=== PATIENT | male | born 1960 | race Caucasian/White ===

== ENCOUNTER 2016-04-01 13:32 | Inpatient (IN) | payer MEDICAID, OTHER ==
[~2016-04-01] VITALS: Ht 185.4 cm; Wt 77.3 kg
[~2016-04-01 13:32] MED LIST: ALBU0.63 NEB; ALBU8I INH; DOXY100T PO; MEDR4PAK3 PO
[2016-04-01 13:36] VITALS: BP 158/83; PULSE 90; RESP 14; TEMP 99.1; O2SAT 96
[2016-04-01] MEDS ORDERED: SODIUM CHLOR 0.9% 1000 ML INJ 1,000 ML IV SCH (14:58)
[2016-04-01] MEDS ORDERED: VENTAER INH (14:58)
[2016-04-01] MEDS ORDERED: ALBU.5I NEB (14:58)
[2016-04-01] MEDS ORDERED: SODIUM CHLORIDE 0.9% FLUSH 5 ML FLUSH IVF PRN (15:00)
[2016-04-01] MEDS ORDERED: ONDANSETRON HCL 4 MG/2 ML VIAL IVP ONE (15:00)
--- NOTE | 2016-04-01 15:02 | PD ---
HPI Chief Complaint: Complaint Time Seen by Provider: 15:00 Travel History International Travel<30 days: No Contact w/Intl Traveler<30days: No Traveled to known affect area: No History of Present Illness HPI 56-year-old male presents to the emergency department for evaluation of abdominal pain and hematuria. Patient states he had flulike symptoms on Friday with diarrhea, chills, subjective fevers. He states that the symptoms resolved on . However, starting on he noticed some mild hematuria which worsened today. He reports worsening abdominal pain. He reports epigastric and left lower quadrant abdominal pain. He denies any history of abdominal surgeries or abdominal problems. He denies any history of nephrolithiasis. Patient states he drinks alcohol rarely. He has history of COPD and uses albuterol nebulizer/inhaler as needed. He denies any other prescribed medications. Patient denies any blood in his stool. He denies any dysuria. PFSH Past Medical History Arthritis: Yes Asthma: No Blood Disorders: No Anxiety: Yes Depression: No Cancer: Yes (basal and squamous cell skin) Cardiac Catheterization: Yes (X2) Cardiovascular Problems: Yes (HX CHEST PAIN DUE TO ANXIETY) High Cholesterol: No COPD: Yes Diminished Hearing: Yes (LEFT EAR [place]) Endocrine: No Gastrointestinal Disorders: Yes (GASTRIC REFLUX, esophageal spasms) GERD: Yes Genitourinary: No Immune Disorder: No Musculoskeletal: Yes Neurologic: No Psychiatric: Yes Reproductive: Yes Respiratory: Yes (COPD) Influenza Vaccination: No Past Surgical History Neurologic Surgery: No Other Surgery: Yes Social History Alcohol Use: Yes (OCCASIONAL) Tobacco Use: Yes (1 PPD x 45 YEARS) Substance Use: No Allergies-Medications (Allergen,Severity, Reaction): Coded Allergies: No Known Allergies (Verified , 04/01/16) Reported Meds & Prescriptions Reported Meds & Active Scripts Active Reported Albuterol Neb (Albuterol Sulfate) 2.5 Mg/0.5 Ml Neb 2.5 Mg NEB Q4HR NEB PRN Note: The Albuterol Sulfate Inhalation Solution is concentrated and must be diluted. Read complete instructions carefully before using. Ventolin Hfa 18 GM Inh (Albuterol Sulfate) 90 Mcg/Act Aer 1 Puff INH BID PRN Review of Systems Except as stated in HPI: all other systems reviewed are Neg Physical Exam Narrative GENERAL: Well-developed well-nourished male patient, afebrile. SKIN: Warm and dry. HEAD: Normocephalic. Atraumatic. EYES: No scleral icterus. No injection or drainage. NECK: Supple, trachea midline. No JVD or lymphadenopathy. CARDIOVASCULAR: Regular rate and rhythm without murmurs, gallops, or rubs. RESPIRATORY: Breath sounds equal bilaterally. No accessory muscle use. GASTROINTESTINAL: Abdomen soft and nondistended. Patient has tenderness over epigastric and left lower quadrants. MUSCULOSKELETAL: No cyanosis, or edema. BACK: Nontender without obvious deformity. No CVA tenderness. Data Data Last Documented VS Vital Signs Date Time Temp Pulse Resp B/P Pulse Ox O2 Delivery O2 Flow Rate FiO2 04/01/16 19:03 64 18 126/68 96 Room Air 04/01/16 13:36 99.1 Orders Urinalysis - C+S If Indicated (04/01/16 13:37) Complete Blood Count With Diff (04/01/16 14:58) Comprehensive Metabolic Panel (04/01/16 14:58) Lipase (04/01/16 14:58) Ct Abd/Pel W Iv Contrast(Rout) (04/01/16 14:58) Iv Access Insert/Monitor (04/01/16 14:58) Ecg Monitoring (04/01/16 14:58) Oximetry (04/01/16 14:58) Ondansetron Inj (Zofran Inj) (04/01/16 15:00) Sodium Chlor 0.9% 1000 Ml Inj (Ns 1000 M (04/01/16 14:58) Sodium Chloride 0.9% Flush (Ns Flush) (04/01/16 15:00) Electrocardiogram (04/01/16 ) Iohexol 350 Inj (Omnipaque 350 Inj) (04/01/16 15:28) Us Abdomen Gallbladder (04/01/16 ) Morphine Inj (Morphine Inj) (04/01/16 17:15) Ondansetron Inj (Zofran Inj) (04/01/16 17:15) Consult Gastroenterology (04/01/16 ) Consult General Surgery (04/01/16 ) (Hub Use Only)Inp Phy Cons/Ref (04/01/16 ) (Hub Use Only)Inp Phy Cons/Ref (04/01/16 ) Piperacil-Tazo 3.375 Gm Premix (Zosyn 3. (04/01/16 20:30) Drug Screen, Random Urine (04/01/16 20:23) Tylenol (Acetaminophen) (04/01/16 20:23) Place In Observation (04/01/16 ) Vital Signs (Adult) Q4H (04/01/16 20:23) Activity Oob With Assistance (04/01/16 20:23) ^ Heel Builder Machine / Telemetry .CONTINUOUS (04/01/16 20:23) Diet Npo (04/02/16 Breakfast) Sodium Chloride 0.9% Flush (Ns Flush) (04/01/16 20:30) Sodium Chloride 0.9% Flush (Ns Flush) (04/01/16 21:00) Comprehensive Metabolic Panel (04/02/16 06:00) Complete Blood Count With Diff (04/02/16 06:00) Case Management Consult (04/01/16 20:23) Naloxone Inj (Narcan Inj) (04/01/16 20:30) Creatine Kinase (Cpk) (04/01/16 20:23) Morphine Inj (Morphine Inj) (04/01/16 20:30) Drug Screen, Random Urine (04/01/16 20:25) Labs Laboratory Tests Test 04/01/16 04/01/16 15:10 15:15 Urine Color DARK-YELLOW Urine Turbidity CLEAR Urine pH 6.5 Urine Specific [place] 1.027 Urine Protein 30 mg/dL Urine Glucose (UA) NEG mg/dL Urine Ketones NEG mg/dL Urine Occult Blood NEG Urine Nitrite NEG Urine Bilirubin MOD Urine Urobilinogen GREATER THAN 12.0 MG/DL Urine Leukocyte Esterase NEG Urine RBC 1 /hpf Urine WBC LESS THAN 1 /hpf Urine Mucus MOD /lpf Microscopic Urinalysis Comment CULT NOT INDICATED White Blood Count 5.1 TH/MM3 Red Blood Count 5.17 MIL/MM3 Hemoglobin 15.2 GM/DL Hematocrit 45.5 % Mean Corpuscular Volume 87.9 FL Mean Corpuscular Hemoglobin 29.3 PG Mean Corpuscular Hemoglobin 33.4 % Concent Red Cell Distribution Width 13.9 % Platelet Count 161 TH/MM3 Mean Platelet Volume 8.6 FL Neutrophils (%) (Auto) 62.3 % Lymphocytes (%) (Auto) 23.3 % Monocytes (%) (Auto) 11.9 % Eosinophils (%) (Auto) 1.8 % Basophils (%) (Auto) 0.7 % Neutrophils # (Auto) 3.2 TH/MM3 Lymphocytes # (Auto) 1.2 TH/MM3 Monocytes # (Auto) 0.6 TH/MM3 Eosinophils # (Auto) 0.1 TH/MM3 Basophils # (Auto) 0.0 TH/MM3 CBC Comment DIFF FINAL Differential Comment Sodium Level 138 MEQ/L Potassium Level 4.3 MEQ/L Chloride Level 101 MEQ/L Carbon Dioxide Level 31.5 MEQ/L Anion Gap 6 MEQ/L Blood Urea Nitrogen 12 MG/DL Creatinine 1.09 MG/DL Estimat Glomerular Filtration 70 ML/MIN Rate Random Glucose 88 MG/DL Calcium Level 8.2 MG/DL Total Bilirubin 2.8 MG/DL Aspartate Amino Transf 703 U/L (AST/SGOT) Alanine Aminotransferase 1454 U/L (ALT/SGPT) Alkaline Phosphatase 161 U/L Total Protein 7.1 GM/DL Albumin 3.2 GM/DL Lipase 130 U/L MDM Medical Decision Making Medical Screen Exam Complete: Yes Emergency Medical Condition: Yes Medical Record Reviewed: Yes Interpretation(s) CT abdomen/pelvis - CONCLUSION: 1. CT appearance of the kidneys within normal limits. 2. Unusual rim enhancement within the lumen of the gallbladder. This may be mucosal enhancement and, if so, the gallbladder wall would be thickened. A pedunculated mass or polyp within the gallbladder would be conceivable. Gallbladder ultrasound with color-flow imaging recommended. 3. Left-sided colonic diverticulosis. No acute inflammatory changes. US - GALLBLADDER: Gallbladder is only slightly distended. Wall is thickened at about 8 mm in width trace pericholecystic fluid. No wall hyperemia seen. Sonographic Werner's sign negative. Differential Diagnosis Nephrolithiasis versus diverticulitis versus pancreatitis versus urinary tract infection Narrative Course 56-year-old male presents to the emergency department for evaluation of hematuria and epigastric as well as left lower quadrant abdominal pain. He denies any history of the same. EKG is ordered and pending. CBC, CMP, lipase, UA are ordered and pending. CT pelvis/pelvis with IV contrast is ordered and pending. EKG shows sinus rhythm, heart rate 61, no acute ST changes. CBC shows no acute abnormality. CMP shows elevated bilirubin at 2.8, AST 703, ALTs 1454, alkaline phosphatase 161. Elevated liver enzymes are new since previous labs on December 25, 2015. Lipase is 130. UA shows moderate bilirubin, greater than 12.0 urobilinogen, moderate mucous, culture not indicated. CT abdomen/pelvis shows 1. CT appearance of the kidneys within normal limits; 2. Unusual rim enhancement within the lumen of the gallbladder. This may be mucosal enhancement and, if so, the gallbladder wall would be thickened. A pedunculated mass or polyp within the gallbladder would be conceivable. Gallbladder ultrasound with color-flow imaging recommended; 3. Left-sided colonic diverticulosis. No acute inflammatory changes. US gallbladder is ordered and shows gallbladder is only slightly distended. Wall is thickened at about 8 mm in width trace pericholecystic fluid. No wall hyperemia seen. Sonographic Werner 's sign negative. Assessment to the general surgeon on-call, Dr. hilario liu, who recommended admit to medicine consult GI for ERCP [facility] is paged for admission. Dr. Toney accepted admission. Diagnosis Primary Impression: Cholecystitis Admitting Information Admitting Physician Requests: Observation Anabella Metcalf Apr 01, 2016 15:02
[2016-04-01] MEDS ORDERED: IOHEXOL 350 MG/ML 10 ML VIAL (for RAD DIAG) IV ONE (15:28)
[2016-04-01 15:47] LABS: AUTOMATED NEUTROPHIL # 3.2 TH/MM3 (1.8-7.7); BASOPHIL % 0.7 % (0.0-2.0); EOSINOPHIL # 0.1 TH/MM3 (0-0.4); EOSINOPHIL % 1.8 % (0.0-4.0); HEMATOCRIT 45.5 % (39.0-51.0); HEMO FLAGS DIFF FINAL; LYMPH % 23.3 % (9.0-44.0); LYMPHOCYTE # 1.2 TH/MM3 (1.0-4.8); MEAN CELL VOLUME 87.9 FL (80.0-100.0); MEAN CORPUSCULAR HEMOGLOBIN 29.3 PG (27.0-34.0); MEAN CORPUSCULAR HGB CONC 33.4 % (32.0-36.0); MONO % 11.9 % (0.0-8.0); NEUT % 62.3 % (16.0-70.0); PLATELET COUNT 161 TH/MM3 (150-450); RED BLOOD COUNT 5.17 MIL/MM3 (4.50-5.90); RED CELL DISTRIBUTION WIDTH 13.9 % (11.6-17.2); WHITE BLOOD COUNT 5.1 TH/MM3 (4.0-11.0)
[2016-04-01 15:48] VITALS: BP 122/56; PULSE 65; RESP 17; O2SAT 95
--- NOTE | 2016-04-01 15:55 | RADRPT ---
EXAM DATE/TIME: 04/01/2016 15:24 [facility] COMPARISON: CT ABDOMEN & PELVIS W/O CONTRAST, December 20, 2014, 21:30. INDICATIONS : Hematuria and left flank pain. IV CONTRAST: 91 cc IV ORAL CONTRAST: No oral contrast ingested. RADIATION DOSE: 11.91 CTDIvol (mGy) MEDICAL HISTORY : Gastroesophageal reflux disease. Cardiovascular disease Carcinoma, basal cell. SURGICAL HISTORY : None. ENCOUNTER: Initial ACUITY: 1 day PAIN SCALE: 7/10 LOCATION: Left flank TECHNIQUE: Volumetric scanning of the abdomen and pelvis was performed. Using automated exposure control and ad justment of the mA and/or kV according to patient size, radiation dose was kept as low as reasonably achievable to obtain optimal diagnostic quality images. FINDINGS: LOWER LUNGS: The visualized lower lungs are clear. LIVER: Homogeneous density without lesion. There is no dilation of the biliary tree. 9 mm diameter, elongat ed rim enhancing focus is seen within the gallbladder lumen extending from the neck to the fundus.. SPLEEN: Normal size without lesion. PANCREAS: Within normal limits. KIDNEYS: Normal in size and shape. There is no mass, stone or hydronephrosis. ADRENAL GLANDS: Within normal limits. VASCULAR: There is no aortic aneurysm. BOWEL/MESENTERY: There is moderate diverticulosis of the left side of the colon. No acute inflammatory changes are dem onstrated. ABDOMINAL WALL: Within normal limits. RETROPERITONEUM: There is no lymphadenopathy. BLADDER: No wall thickening or mass. REPRODUCTIVE: Within normal limits. INGUINAL: There is no lymphadenopathy or hernia. MUSCULOSKELETAL: No acute bony abnormality demonstrated. There are old, healed fractures of the right superior and inf erior pubic rami. CONCLUSION: 1. CT appearance of the kidneys within normal limits. 2. Unusual rim enhancement within the lumen of the gallbladder. This may be mucosal enhancement and, if so, the gallbladder wall would be thickened. A pedunculated mass or polyp within the gallbladder w ould be conceivable. Gallbladder ultrasound with color-flow imaging recommended. 3. Left-sided colonic diverticulosis. No acute inflammatory changes. Rangel De La Vega MD on April 01, 2016 at 15:48 Board Certified Radiologist. This report was verified electronically.
[2016-04-01 16:20] LABS: BLOOD, URINE NEG (NEG); GLUCOSE,URINE NEG (NEG); KETONE, URINE NEG (NEG); MUCUS URINE MOD /lpf (OCC); NITRITE,URINE NEG (NEG); PH, URINE 6.5 (5.0-8.5); URINE COLOR DARK-YELLOW (YELLW/STRAW)
[2016-04-01 16:22] LABS: ALKALINE PHOSPHATASE 161 U/L (45-117); ALT (GPT) 1454 U/L (12-78); ANION GAP 6 MEQ/L (5-15); AST (GOT) 703 U/L (15-37); BICARBONATE 31.5 MEQ/L (21.0-32.0); BLOOD UREA NITROGEN 12 MG/DL (7-18); CHLORIDE 101 MEQ/L (98-107); GLOMERULAR FILTRATION RATE 70 ML/MIN (>89); POTASSIUM 4.3 MEQ/L (3.5-5.1); SODIUM (NA) 138 MEQ/L (136-145); TOTAL BILIRUBIN ADULT 2.8 MG/DL (0.2-1.0)
[2016-04-01 16:23] LABS: COMMENT (UR) CULT NOT INDICATED; CULTURE IF INDICATED CULT NOT INDICATED
[2016-04-01] MEDS ORDERED: ONDANSETRON HCL 4 MG/2 ML VIAL IV PUSH ONE (17:15)
[2016-04-01] MEDS ORDERED: MORPHINE SULFATE 4 MG/ML INJ IV PUSH ONE (17:15)
--- NOTE | 2016-04-01 18:00 | RADRPT ---
EXAM DATE/TIME: 04/01/2016 17:02 [facility] COMPARISON: CT ABDOMEN & PELVIS W CONTRAST, April 01, 2016, 15:24. INDICATIONS : Abnormal gallbladder seen on CT. MEDICAL HISTORY : Gastroesophageal reflux disease. Chronic obstructive pulmonary disease. Left ear hearing loss. Esop hageal spasms. Arthritis. Anxiety. Skin cancer. SURGICAL HISTORY : Cardiac catheterization. Right knee surgery. Right wrist surgery. Right finger surgery. ENCOUNTER: Initial ACUITY: 1 day PAIN SCORE: 7/10 LOCATION: Right upper quadrant MEASUREMENTS: LIVER: 17.4 cm length COMMON DUCT: 4 mm RIGHT KIDNEY: 10.4 x 5.7 x 4.7 cm FINDINGS: LIVER: Normal echotexture without focal lesion or ductal dilatation. Normal flow velocity and direction in the main portal vein. COMMON DUCT: No intraluminal mass or stone visualized. GALLBLADDER: Gallbladder is only slightly distended. Wall is thickened at about 8 mm in width trace pericholecysti c fluid. No wall hyperemia seen. Sonographic Werner's sign negative. PANCREAS: The visualized portions are within normal limits. RIGHT KIDNEY: No evidence of hydronephrosis, stone, or mass. CONCLUSION: 1. Nonspecific gallbladder wall thickening with small pericholecystic fluid. No measurable mass. Nega tive sonographic Werner's sign. 2. Upper limits of normal size liver. Rangel De La Vega MD on April 01, 2016 at 17:55 Board Certified Radiologist. This report was verified electronically.
[2016-04-01 19:03] VITALS: BP 126/68; PULSE 64; RESP 18; O2SAT 96
--- NOTE | 2016-04-01 19:35 | PD ---
Data Data Last Documented VS Vital Signs Date Time Temp Pulse Resp B/P Pulse Ox O2 Delivery O2 Flow Rate FiO2 04/01/16 19:03 64 18 126/68 96 Room Air 04/01/16 13:36 99.1 Orders Urinalysis - C+S If Indicated (04/01/16 13:37) Complete Blood Count With Diff (04/01/16 14:58) Comprehensive Metabolic Panel (04/01/16 14:58) Lipase (04/01/16 14:58) Ct Abd/Pel W Iv Contrast(Rout) (04/01/16 14:58) Iv Access Insert/Monitor (04/01/16 14:58) Ecg Monitoring (04/01/16 14:58) Oximetry (04/01/16 14:58) Ondansetron Inj (Zofran Inj) (04/01/16 15:00) Sodium Chlor 0.9% 1000 Ml Inj (Ns 1000 M (04/01/16 14:58) Sodium Chloride 0.9% Flush (Ns Flush) (04/01/16 15:00) Electrocardiogram (04/01/16 ) Iohexol 350 Inj (Omnipaque 350 Inj) (04/01/16 15:28) Us Abdomen Gallbladder (04/01/16 ) Morphine Inj (Morphine Inj) (04/01/16 17:15) Ondansetron Inj (Zofran Inj) (04/01/16 17:15) Consult Gastroenterology (04/01/16 ) Consult General Surgery (04/01/16 ) Labs Laboratory Tests Test 04/01/16 04/01/16 15:10 15:15 Urine Color DARK-YELLOW Urine Turbidity CLEAR Urine pH 6.5 Urine Specific [place] 1.027 Urine Protein 30 mg/dL Urine Glucose (UA) NEG mg/dL Urine Ketones NEG mg/dL Urine Occult Blood NEG Urine Nitrite NEG Urine Bilirubin MOD Urine Urobilinogen GREATER THAN 12.0 MG/DL Urine Leukocyte Esterase NEG Urine RBC 1 /hpf Urine WBC LESS THAN 1 /hpf Urine Mucus MOD /lpf Microscopic Urinalysis Comment CULT NOT INDICATED White Blood Count 5.1 TH/MM3 Red Blood Count 5.17 MIL/MM3 Hemoglobin 15.2 GM/DL Hematocrit 45.5 % Mean Corpuscular Volume 87.9 FL Mean Corpuscular Hemoglobin 29.3 PG Mean Corpuscular Hemoglobin 33.4 % Concent Red Cell Distribution Width 13.9 % Platelet Count 161 TH/MM3 Mean Platelet Volume 8.6 FL Neutrophils (%) (Auto) 62.3 % Lymphocytes (%) (Auto) 23.3 % Monocytes (%) (Auto) 11.9 % Eosinophils (%) (Auto) 1.8 % Basophils (%) (Auto) 0.7 % Neutrophils # (Auto) 3.2 TH/MM3 Lymphocytes # (Auto) 1.2 TH/MM3 Monocytes # (Auto) 0.6 TH/MM3 Eosinophils # (Auto) 0.1 TH/MM3 Basophils # (Auto) 0.0 TH/MM3 CBC Comment DIFF FINAL Differential Comment Sodium Level 138 MEQ/L Potassium Level 4.3 MEQ/L Chloride Level 101 MEQ/L Carbon Dioxide Level 31.5 MEQ/L Anion Gap 6 MEQ/L Blood Urea Nitrogen 12 MG/DL Creatinine 1.09 MG/DL Estimat Glomerular Filtration 70 ML/MIN Rate Random Glucose 88 MG/DL Calcium Level 8.2 MG/DL Total Bilirubin 2.8 MG/DL Aspartate Amino Transf 703 U/L (AST/SGOT) Alanine Aminotransferase 1454 U/L (ALT/SGPT) Alkaline Phosphatase 161 U/L Total Protein 7.1 GM/DL Albumin 3.2 GM/DL Lipase 130 U/L MDM Supervised Visit with POLY: Yes Narrative Course The history, exam, and medical decision-making in the associated mid-level provider note were completed with my assistance. I reviewed and agree with the findings presented. I attest that I had a [id number] encounter with the patient on the same day, and personally performed and documented my assessment and findings in the medical record. *My assessment and Findings: 56-year-old man presents to the emergency department with epigastric pain, with fevers chills and myalgias for several days. Very tender in the epigastrium, not particular tender right upper quadrant. CT scan showed thickened gallbladder wall confirmed his gallbladder wall edema pericholecystic fluid on the ultrasound. Liver enzymes are also abnormal, but not in the pattern typically seen for acute cholecystitis. Given the diagnostic uncertainty, patient will be admitted to medicine, IV antibiotics, GI consult, surgery consult. Coverage for cholangitis. Diagnosis Primary Impression: Cholecystitis Jorge Alberto Etienne MD Apr 01, 2016 19:35
[2016-04-01] MEDS ORDERED: NALOXONE HCL 0.4 MG/ML AMP IV PRN (20:30)
[2016-04-01] MEDS ORDERED: SODIUM CHLORIDE 0.9% FLUSH 5 ML FLUSH FLUSH PRN (20:30)
[2016-04-01] MEDS ORDERED: PIPERACIL-TAZO 3.375 GM PREMIX 50 ML IV ONE (20:30)
[2016-04-01 20:45] LABS: AMPHETAMINE, URINE NEG (NEG); BARBITURATES, URINE NEG (NEG); COCAINE, URINE NEG (NEG)
[2016-04-01 20:54] LABS: ACETAMINOPHEN LESS THAN 2.0 MCG/ML (10.0-30.0); CREATINE KINASE 55 U/L (39-308)
[2016-04-01] MEDS: SODIUM CHLORIDE 0.9% FLUSH 5 ML FLUSH FLUSH SCH (22:05)
[2016-04-01 23:40] VITALS: BP 116/56; PULSE 84; RESP 20; TEMP 98.2; O2SAT 100
[2016-04-02] VITALS (10 sets, daily range): BP systolic 102–162; BP diastolic 52–91; PULSE 54–68; RESP 18–19; TEMP 98–98.9; O2SAT 94–98
--- NOTE | 2016-04-02 03:10 | HHI.HP ---
[facility] Service [facility] Primary Care Physician No Primary Care Physician Admission Diagnosis cholecystitis Diagnoses: Chief Complaint: Abdominal pain and hematuria Travel History International Travel<30 Days: No Contact w/Intl Traveler <30 Da: No Traveled to Known Affected Are: No History of Present Illness History taken from patient and ER physician. 56-year-old male with a history of COPD presented to the ED with increasing abdominal pain and hematuria. Patient states on Friday he felt like he had the flu with symptoms of nausea , vomiting, diarrhea, chills and fever. He states he vomited 4-5 times that day and multiple episodes of diarrhea. He is unsure how high his fever was but he states he just felt warm. He was also experiencing severe epigastric and left lower quadrant abdominal pain. On he developed hematuria, and the abdominal pain continued. The N/V/ D had subsided on . Friday he was able to go to work but did not feel good all day, and patient states over the weekend he spent all his time in bed. Today the abdominal pain continued to get worse so he presented to the ED. Patient states for the last 2 years he has had on and off right upper quadrant abdominal pain usually when he eats. He does admit to an unhealthy diet, as he lives alone and is always working. He denies any history of liver disease or hepatitis. He denies any chest pain or short of breath. Review of Systems Constitutional: COMPLAINS OF: Fever, Chills Respiratory: COMPLAINS OF: Cough, DENIES: Shortness of breath Cardiovascular: COMPLAINS OF: Chest pain, Lower Extremity Edema Gastrointestinal: COMPLAINS OF: Abdominal pain, Diarrhea, Nausea, Vomiting Genitourinary: COMPLAINS OF: Hematuria Musculoskeletal: DENIES: Back pain, Neck pain Integumentary: DENIES: Rash Hematologic/lymphatic: DENIES: Lymphadenopathy Immunologic/allergic: DENIES: Urticaria Past Family Social History Past Medical History COPD Past Surgical History Total knee replacement Right wrist surgery Skin cancer squamous removal Reported Medications Reported Meds & Active Scripts Active Reported Albuterol Neb (Albuterol Sulfate) 2.5 Mg/0.5 Ml Neb 2.5 Mg NEB Q4HR NEB PRN Note: The Albuterol Sulfate Inhalation Solution is concentrated and must be diluted. Read complete instructions carefully before using. Ventolin Hfa 18 GM Inh (Albuterol Sulfate) 90 Mcg/Act Aer 1 Puff INH BID PRN Allergies: Coded Allergies: No Known Allergies (Verified , 04/01/16) Active Ordered Medications Current Medications Medications (Trade) Dose Ordered Sig/Rosemarie Route Start Time Stop Time Status Last Admin (NS Flush) 2 ml UNSCH PRN FLUSH 04/01/16 20:30 (NS Flush) 2 ml BID FLUSH 04/01/16 21:00 04/01/16 22:05 (Narcan Inj) 0.4 mg UNSCH PRN IV 04/01/16 20:30 (Morphine Inj) 2 mg Q3H PRN IV PUSH 04/01/16 20:30 Family History Mom: ovarian cancer Dad: Parkinson's Social History Tobacco use: 1ppd Alcohol use: Denies Illicit drug use: Denies 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 SKIN: No rashes, ecchymoses or lesions. Cool and dry. HEAD: Atraumatic. Normocephalic. EYES: Pupils equal round and reactive. ENT: Nose without bleeding, purulent drainage or septal hematoma. Airway patent. NECK: Trachea midline. No JVD CARDIOVASCULAR: Regular rate and rhythm without murmurs, gallops, or rubs. RESPIRATORY: Clear to auscultation. Breath sounds equal bilaterally. No wheezes , rales, or rhonchi. GASTROINTESTINAL: Abdomen soft,tender, nondistended. No guarding. MUSCULOSKELETAL: Extremities without clubbing, cyanosis, or edema. No calf tenderness. NEUROLOGICAL: Awake and alert. Motor and sensory grossly within normal limits. Normal speech. Laboratory Laboratory Tests Test 04/01/16 04/01/16 15:10 15:15 Urine Color DARK-YELLOW Urine Turbidity CLEAR Urine pH 6.5 Urine Specific [place] 1.027 Urine Protein 30 Urine Glucose (UA) NEG Urine Ketones NEG Urine Occult Blood NEG Urine Nitrite NEG Urine Bilirubin MOD Urine Urobilinogen GREATER THAN 12.0 Urine Leukocyte Esterase NEG Urine RBC 1 Urine WBC LESS THAN 1 Urine Mucus MOD Microscopic Urinalysis Comment CULT NOT INDICATED Urine Opiates Screen NEG Urine Barbiturates Screen NEG Urine Amphetamines Screen NEG Urine Benzodiazepines Screen NEG Urine Cocaine Screen NEG Urine Cannabinoids Screen NEG White Blood Count 5.1 Red Blood Count 5.17 Hemoglobin 15.2 Hematocrit 45.5 Mean Corpuscular Volume 87.9 Mean Corpuscular Hemoglobin 29.3 Mean Corpuscular Hemoglobin 33.4 Concent Red Cell Distribution Width 13.9 Platelet Count 161 Mean Platelet Volume 8.6 Neutrophils (%) (Auto) 62.3 Lymphocytes (%) (Auto) 23.3 Monocytes (%) (Auto) 11.9 Eosinophils (%) (Auto) 1.8 Basophils (%) (Auto) 0.7 Neutrophils # (Auto) 3.2 Lymphocytes # (Auto) 1.2 Monocytes # (Auto) 0.6 Eosinophils # (Auto) 0.1 Basophils # (Auto) 0.0 CBC Comment DIFF FINAL Differential Comment Sodium Level 138 Potassium Level 4.3 Chloride Level 101 Carbon Dioxide Level 31.5 Anion Gap 6 Blood Urea Nitrogen 12 Creatinine 1.09 Estimat Glomerular Filtration 70 Rate Random Glucose 88 Calcium Level 8.2 Total Bilirubin 2.8 Aspartate Amino Transf 703 (AST/SGOT) Alanine Aminotransferase 1454 (ALT/SGPT) Alkaline Phosphatase 161 Total Creatine Kinase 55 Total Protein 7.1 Albumin 3.2 Lipase 130 Acetaminophen Level LESS THAN 2.0 Result Diagram: 04/01/16 1515 04/01/16 1515 Assessment and Plan Problem List: (1) Abdominal pain ICD Code: R10.9 Status: Acute (2) Acute hepatitis ICD Code: B17.9 Status: Acute (3) Elevated LFTs ICD Code: R94.5 Status: Acute Assessment and Plan 56-year-old male with a history of COPD presented with: Abdominal pain, rule out cholecystitis Images reviewed: Abdominal/pelvis CT shows unusual rim enhancement within the lumen of the gallbladder. Gallbladder ultrasound shows nonspecific gallbladder wall thickening with small pericholecystic fluid. -Consult GI and general surgery for recommendations -Pain management with IV morphine -MRI MRCP ordered Elevated LFTs, rule out acute hepatitis Labs reviewed: AST 703, [id number] -Hepatitis panel DVT prophylaxis: SCDs Written by Jennifer PETERSON, acting as scribe for Dr. Toney on 04/02/16 at 0250. The documentation accurately reflects the work performed [id number] and decisions made by me and the physician Dr Toney on 04/02/16. The documentation accurately reflects the work performed [id number] by me on at 0250 Discussed Condition With Patient and ED physician Problem Qualifiers (1) Abdominal pain: Qualified Code: R10.11 - Right upper quadrant abdominal pain Jennifer Shaw Apr 02, 2016 03:10 Jessica Toney MD Apr 11, 2016 07:58
[2016-04-02 07:26] LABS: AUTOMATED NEUTROPHIL # 3.4 TH/MM3 (1.8-7.7); BASOPHIL % 0.6 % (0.0-2.0); EOSINOPHIL # 0.1 TH/MM3 (0-0.4); EOSINOPHIL % 2.3 % (0.0-4.0); HEMATOCRIT 41.1 % (39.0-51.0); HEMO FLAGS DIFF FINAL; LYMPH % 21.6 % (9.0-44.0); LYMPHOCYTE # 1.2 TH/MM3 (1.0-4.8); MEAN CORPUSCULAR HEMOGLOBIN 29.3 PG (27.0-34.0); MEAN CORPUSCULAR HGB CONC 33.7 % (32.0-36.0); MONO % 12.5 % (0.0-8.0); PLATELET COUNT 128 TH/MM3 (150-450); RED BLOOD COUNT 4.72 MIL/MM3 (4.50-5.90); RED CELL DISTRIBUTION WIDTH 13.9 % (11.6-17.2); WHITE BLOOD COUNT 5.4 TH/MM3 (4.0-11.0)
[2016-04-02 07:47] LABS: ALKALINE PHOSPHATASE 137 U/L (45-117); ALT (GPT) 1360 U/L (12-78); ANION GAP 6 MEQ/L (5-15); AST (GOT) 774 U/L (15-37); BICARBONATE 26.9 MEQ/L (21.0-32.0); BLOOD UREA NITROGEN 11 MG/DL (7-18); CHLORIDE 105 MEQ/L (98-107); GLOMERULAR FILTRATION RATE 80 ML/MIN (>89); POTASSIUM 4.3 MEQ/L (3.5-5.1); SODIUM (NA) 138 MEQ/L (136-145); TOTAL BILIRUBIN ADULT 3.2 MG/DL (0.2-1.0)
[2016-04-02] MEDS ORDERED: ONDANSETRON HCL 4 MG/2 ML VIAL IV PUSH PRN (08:00)
--- NOTE | 2016-04-02 08:23 | HHI.PR ---
Subjective Remarks Follow-up for abdominal pain. The patient states he hasn't eaten in about a day now, reports his nausea and abdominal pain have improved, and would like to eat. He still complains of some upper abdomen pain. He continues to report dark urine. He reports he has had episodes of upper abdomen pain intermittently throughout the years. Does admit to having about diet consisting frequently of fast food. Objective Vitals Vital Signs Date Time Temp Pulse Resp B/P Pulse Ox O2 Delivery O2 Flow Rate FiO2 04/02/16 07:23 98.0 54 19 102/52 94 04/02/16 04:09 98.8 66 18 121/62 98 04/02/16 01:25 162/91 04/02/16 00:51 54 04/02/16 00:03 54 04/01/16 23:40 98.2 84 20 116/56 100 04/01/16 19:03 64 18 126/68 96 Room Air 04/01/16 15:48 65 17 122/56 95 Room Air 04/01/16 13:36 99.1 90 14 158/83 96 Room Air Result Diagram: 04/02/16 0616 04/02/16 0614 Imaging Last Impressions Abdomen/Pelvis CT 04/01/16 1458 Signed Impressions: Service Date/Time: Friday, April 01, 2016 15:24 - CONCLUSION: 1. CT appearance of the kidneys within normal limits. 2. Unusual rim enhancement within the lumen of the gallbladder. This may be mucosal enhancement and, if so , the gallbladder wall would be thickened. A pedunculated mass or polyp within the gallbladder would be conceivable. Gallbladder ultrasound with color-flow imaging recommended. 3. Left-sided colonic diverticulosis. No acute inflammatory changes. Rangel De La Vega MD Gall Bladder Ultrasound 04/01/16 0000 Signed Impressions: Service Date/Time: Friday, April 01, 2016 17:02 - CONCLUSION: 1. Nonspecific gallbladder wall thickening with small pericholecystic fluid. No measurable mass. Negative sonographic Werner's sign. 2. Upper limits of normal size liver. Rangel De La Vega MD Objective Remarks GENERAL: Well-developed well-nourished. In no acute distress. SKIN: Warm and dry. No lesions noted. HEENT: Normocephalic. Pupils equal and round. Mucous membranes pink and moist. CARDIOVASCULAR: Regular rate and rhythm. No murmur appreciated. RESPIRATORY: No accessory muscle use. Clear to auscultation. Breath sounds equal bilaterally. GASTROINTESTINAL: Abdomen soft, RUQ TTP, nondistended. Bowel sounds x4. MUSCULOSKELETAL: No obvious deformities. No clubbing or cyanosis. No edema. NEUROLOGICAL: Awake and alert. No focal neurological deficits. Moves upper and lower extremities spontaneously. Normal speech. PSYCHIATRIC: Appropriate mood and affect; insight and judgment normal. A/P Problem List: (1) Abdominal pain ICD Code: R10.9 Status: Acute (2) Elevated LFTs ICD Code: R94.5 Status: Acute Assessment and Plan 56-year-old male with a history of COPD presented with: Abdominal pain, RUQ/epigastric Images reviewed: Abdominal/pelvis CT shows unusual rim enhancement within the lumen of the gallbladder. Gallbladder ultrasound shows nonspecific gallbladder wall thickening with small pericholecystic fluid. Labs reviewed: Elevated bilirubin and transaminases. Lipase within normal limits. UA with moderate bilirubin and urobilinogen, no blood. Possible biliary obstruction vs cholecystitis vs acute hepatitis -Consulted GI and general surgery for recommendations -Pain management with IV morphine -MRI MRCP ordered -NPO for now, Add IVF with D5 -Antiemetics as needed -Hepatitis panel ordered, follow-up results DVT prophylaxis: SCDs Discharge Planning Disposition pending clinical course. Problem Qualifiers (1) Abdominal pain: Qualified Code: R10.11 - Right upper quadrant abdominal pain Fran Isabel Apr 02, 2016 08:23 Reese Hillman MD Apr 03, 2016 02:19
[2016-04-02] MEDS: D5-1/2 NS + KCL 20 MEQ INJ 1,000 ML IV SCH ×2 (08:35→22:20)
[2016-04-02] MEDS: SODIUM CHLORIDE 0.9% FLUSH 5 ML FLUSH FLUSH SCH ×2 (08:35→20:53)
--- NOTE | 2016-04-02 11:39 | RADRPT ---
EXAM DATE/TIME: 04/02/2016 09:50 [facility] COMPARISON: US ABDOMEN - GALLBLADDER, April 01, 2016, 17:02. CT ABDOMEN & PELVIS W CONTRAST, April 01, 2016, 15:24. INDICATIONS : Abdominal pain. MEDICAL HISTORY : Chronic obstructive pulmonary disease. Gastroesophageal reflux disease. SURGICAL HISTORY : rt knee, rt wrist, rt index finger ENCOUNTER: Subsequent ACUITY: 3 day PAIN SCORE: 6/10 LOCATION: upper quadrant abdomen TECHNIQUE: Multiplanar, multisequence magnetic resonance imaging of the abdomen was performed. High-resolution 3D dataset was utilized to reconstruct maximum-intensity projection (MIP) images. FINDINGS: INTRAHEPATIC BILE DUCTS: Within normal limits. No significant anatomical variant is present. EXTRAHEPATIC BILE DUCTS: The common bile duct measures 3 mm No stone or filling defect is identified. GALLBLADDER: No definite gallstones are demonstrated. There is some thickening of the gallbladder wall with some f luid around the gallbladder. LIVER: Normal size and signal intensity. No concerning liver lesion is identified on this non-contrast exam. There is a nonspecific periportal edema. PANCREAS: The main pancreatic duct is normal in size. There is no significant anatomical variant. Signal inte nsity is within normal limits. No mass is visualized on this non-contrast exam. OTHER: The remaining visualized structures demonstrate no acute abnormality on this non-contrast exam. CONCLUSION: 1. No evidence of gallstones in the gallbladder. However, there is some thickening of the gallbladder wall with some fluid around the gallbladder. This can be seen with either acute or chronic gallbladd er disease. This needs to be correlated with patient's physical, clinical exam and laboratory values. 2. No evidence of biliary tract obstruction. 3. Nonspecific periportal edema. Manuel Chowdhury MD on April 02, 2016 at 11:33 Board Certified Radiologist. This report was verified electronically.
--- NOTE | 2016-04-02 14:30 | PD.CONS ---
HPI History of Present Illness This is a 56 year old male patient who has been having generalized malaise with fevers, nausea, vomiting, diarrhea, and abdominal pain since last Friday. His urine became dark on . He reports that he continued to work, but states his symptoms were worsening and therefore he came to the ER for further evaluation. He complains of a constant dull ache ("6" on scale 0-10 with spikes up to "11") that radiates to his back. He states that he has been having a similar type pain off and on for about a year and half. It always seems to be related to food intake, although not a particular type of food. His vomiting consisted of undigested food initially and later progressed to bilious material, but no hematemesis. He reports intermittent fever and chills , but did not have a thermometer to actually take his temperature. The diarrhea lasted Friday and early , but has since subsided. He denies any weight loss. There is no blood in his stool. He has never been told that he had gallbladder issues, although he did suspect this because of his recurrent abdominal pain. 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 He denies any hx of liver disease and does not drink ETOH. 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 He also frequently eats shellfish. (Dottie Zhao) PFSH Past Medical History COPD Recurrent abdominal pain x 1.5 years. Past Surgical History Total knee replacement right Right wrist surgery Skin cancer squamous removal (Dottie Zhao) Coded Allergies: No Known Allergies (Verified , 04/01/16) Medications Allergies Coded Allergies Type Severity Reaction Last Updated Verified No Known Allergies 04/01/16 Yes Active Scripts Medications Dose Route/Sig Days Date Category Dose Instructions Albuterol Neb (Albuterol Sulfate) 2.5 Mg/0.5 Ml Neb 2.5 Mg NEB Q4HR NEB PRN 04/01/16 Reported Note: The Albuterol Sulfate Inhalation Solution is concentrated and must be diluted. Read complete instructions carefully before using. Ventolin Hfa 18 GM Inh (Albuterol Sulfate) 90 Mcg/Act Aer 1 Puff INH BID PRN 04/01/16 Reported Family History Mom from ovarian cancer Dad , had Parkinson's Social History Smokes 1 PPD No ETOH No illicit drug use. (Dottie Zhao KRISTEN) Review of Systems Constitutional: COMPLAINS OF: Fatigue, Fever, Chills, DENIES: Weight loss Respiratory: COMPLAINS OF: Cough, Shortness of breath Cardiovascular: DENIES: Chest pain Gastrointestinal: COMPLAINS OF: Abdominal pain, Diarrhea, Nausea, Vomiting, DENIES: Black stools, Bloody stools, Constipation, Swelling of Abdomen, Heartburn, Hematemesis Musculoskeletal: DENIES: Joint pain Integumentary: COMPLAINS OF: Jaundice, DENIES: Abnormal pigmentation Hematologic/lymphatic: DENIES: Bruising Psychiatric: DENIES: Confusion ROS dark urine (Dottie Zhao KRISTEN) GI Exam Vitals I&O Vital Signs Date Time Temp Pulse Resp B/P Pulse Ox O2 Delivery O2 Flow Rate FiO2 04/02/16 11:25 98.0 65 19 129/58 94 04/02/16 07:23 98.0 54 19 102/52 94 04/02/16 04:09 98.8 66 18 121/62 98 04/02/16 01:25 162/91 04/02/16 00:51 54 04/02/16 00:03 54 04/01/16 23:40 98.2 84 20 116/56 100 04/01/16 19:03 64 18 126/68 96 Room Air 04/01/16 15:48 65 17 122/56 95 Room Air Imaging Last Impressions Cholangiopancreatography MRI 04/02/16 0000 Signed Impressions: Service Date/Time: Saturday, April 02, 2016 09:50 - CONCLUSION: 1. No evidence of gallstones in the gallbladder. However, there is some thickening of the gallbladder wall with some fluid around the gallbladder. This can be seen with either acute or chronic gallbladder disease. This needs to be correlated with patient's physical, clinical exam and laboratory values. 2. No evidence of biliary tract obstruction. 3. Nonspecific periportal edema. Manuel Chowdhury MD Abdomen/Pelvis CT 04/01/16 1458 Signed Impressions: Service Date/Time: Friday, April 01, 2016 15:24 - CONCLUSION: 1. CT appearance of the kidneys within normal limits. 2. Unusual rim enhancement within the lumen of the gallbladder. This may be mucosal enhancement and, if so , the gallbladder wall would be thickened. A pedunculated mass or polyp within the gallbladder would be conceivable. Gallbladder ultrasound with color-flow imaging recommended. 3. Left-sided colonic diverticulosis. No acute inflammatory changes. Rangel De La Vega MD Gall Bladder Ultrasound 04/01/16 0000 Signed Impressions: Service Date/Time: Friday, April 01, 2016 17:02 - CONCLUSION: 1. Nonspecific gallbladder wall thickening with small pericholecystic fluid. No measurable mass. Negative sonographic Werner's sign. 2. Upper limits of normal size liver. Rangel De La Vega MD Laboratory Test 04/01/16 04/01/16 04/02/16 04/02/16 15:10 15:15 06:14 06:16 Urine Color DARK-YELLOW Urine Turbidity CLEAR Urine pH 6.5 Urine Specific [place] 1.027 Urine Protein 30 mg/dL Urine Glucose (UA) NEG mg/dL Urine Ketones NEG mg/dL Urine Occult Blood NEG Urine Nitrite NEG Urine Bilirubin MOD Urine Urobilinogen GREATER THAN 12.0 MG/DL Urine Leukocyte Esterase NEG Urine RBC 1 /hpf Urine WBC LESS THAN 1 /hpf Urine Mucus MOD /lpf Microscopic Urinalysis Comment CULT NOT INDICATED Urine Opiates Screen NEG Urine Barbiturates Screen NEG Urine Amphetamines Screen NEG Urine Benzodiazepines Screen NEG Urine Cocaine Screen NEG Urine Cannabinoids Screen NEG White Blood Count 5.1 TH/MM3 5.4 TH/MM3 Red Blood Count 5.17 MIL/MM3 4.72 MIL/MM3 Hemoglobin 15.2 GM/DL 13.9 GM/DL Hematocrit 45.5 % 41.1 % Mean Corpuscular Volume 87.9 FL 87.0 FL Mean Corpuscular Hemoglobin 29.3 PG 29.3 PG Mean Corpuscular Hemoglobin 33.4 % 33.7 % Concent Red Cell Distribution Width 13.9 % 13.9 % Platelet Count 161 TH/MM3 128 TH/MM3 Mean Platelet Volume 8.6 FL 8.8 FL Neutrophils (%) (Auto) 62.3 % 63.0 % Lymphocytes (%) (Auto) 23.3 % 21.6 % Monocytes (%) (Auto) 11.9 % 12.5 % Eosinophils (%) (Auto) 1.8 % 2.3 % Basophils (%) (Auto) 0.7 % 0.6 % Neutrophils # (Auto) 3.2 TH/MM3 3.4 TH/MM3 Lymphocytes # (Auto) 1.2 TH/MM3 1.2 TH/MM3 Monocytes # (Auto) 0.6 TH/MM3 0.7 TH/MM3 Eosinophils # (Auto) 0.1 TH/MM3 0.1 TH/MM3 Basophils # (Auto) 0.0 TH/MM3 0.0 TH/MM3 CBC Comment DIFF FINAL DIFF FINAL Differential Comment Sodium Level 138 MEQ/L 138 MEQ/L Potassium Level 4.3 MEQ/L 4.3 MEQ/L Chloride Level 101 MEQ/L 105 MEQ/L Carbon Dioxide Level 31.5 MEQ/L 26.9 MEQ/L Anion Gap 6 MEQ/L 6 MEQ/L Blood Urea Nitrogen 12 MG/DL 11 MG/DL Creatinine 1.09 MG/DL 0.97 MG/DL Estimat Glomerular Filtration 70 ML/MIN 80 ML/MIN Rate Random Glucose 88 MG/DL 76 MG/DL Calcium Level 8.2 MG/DL 7.7 MG/DL Total Bilirubin 2.8 MG/DL 3.2 MG/DL Aspartate Amino Transf 703 U/L 774 U/L (AST/SGOT) Alanine Aminotransferase 1454 U/L 1360 U/L (ALT/SGPT) Alkaline Phosphatase 161 U/L 137 U/L Total Creatine Kinase 55 U/L Total Protein 7.1 GM/DL 6.0 GM/DL Albumin 3.2 GM/DL 2.7 GM/DL Lipase 130 U/L Acetaminophen Level LESS THAN 2.0 MCG/ML Hepatitis A IgM Antibody NEGATIVE Hepatitis B Surface Antigen POSITIVE Hepatitis B Core IgM Antibody REACTIVE Physical Examination HEENT: Normocephalic; atraumatic; no jaundice. NECK: Neck is supple, no JVD, no lymphadenopathy. CHEST: CTA CARDIAC: RRR. ABDOMEN: Soft, nondistended, RUQ/Epigastric tenderness; no hepatosplenomegaly; bowel sounds are present in all four quadrants. EXTREMITIES: No clubbing, cyanosis, or edema. SKIN: Normal; no rash; no jaundice. CORNETIST: No focal deficits; alert and oriented times three. (Dottie Zhao) Assessment and Plan Plan ASSESSMENT: - Acute Hepatitis/Elevated LFTs, labs consistent with acute hepatitis b infection. Abdomen/Pelvis CT (04/01/16)----> 1. CT appearance of the kidneys within normal limits. 2. Unusual rim enhancement within the lumen of the gallbladder. This may be mucosal enhancement and, if so, the gallbladder wall would be thickened. A pedunculated mass or polyp within the gallbladder would be conceivable. Gallbladder ultrasound with color-flow imaging recommended. 3. Left-sided colonic diverticulosis. No acute inflammatory changes. GB Ultrasound (04/01/16)---> 1. Nonspecific gallbladder wall thickening with small pericholecystic fluid. No measurable mass. Negative sonographic Werner's sign. 2. Upper limits of normal size liver. MRCP (04/02/16)------> 1. No evidence of gallstones in the gallbladder. However, there is some thickening of the gallbladder wall with some fluid around the gallbladder. Acetaminophen level < 2.0. Hepatitis Bs Ag (+), Hepatitis B Core IgM Ab (+). T. Bili 3.2, AST 774, ALT 1360, ALk Phosph 137. This looks like an acute hepatitis b infection. - Abnormal imaging of GB with mild wall thickening and pericholecystic fluid. Unclear if he has some chronic GB disease, as he reports that he has had intermittent abdominal pain with food intake for 1.5 years, or if this is related to his acute hepatitis. GS consulted. His current symptoms seem more consistent with acute hepatitis- malaise, fevers, n/v/d, abdominal pain, dark urine. - COPD per primary PLAN: - NPO until seen by GS- if okay with them, okay to eat from GI standpoint - Hep B DNA Viral load - Hep Be Ag - Liver workup to exclude other underlying liver disease - CBC, CMP in am - Supportive care - Further recommendations to follow based on results of above - Pt seen and examined by Dr. Royal and myself and this note is written on his behalf (Dottie Zhao) Physician Comments Patient was seen and examined, agree with above note. we will check labs, continue supportive care. consider gall bladder removal. with liver Bx during surgery. (Zak Royal MD) Dottie Zhao Apr 02, 2016 14:30 Zak Royal MD Apr 02, 2016 22:17
[2016-04-02] MEDS ORDERED: DOCUSATE SODIUM 100 MG CAP PO PRN (21:00)
[2016-04-02] MEDS ORDERED: RESP: ALBUTEROL CONC 2.5 MG/0.5 ML NEB NEB PRN (21:00)
[2016-04-02] MEDS ORDERED: ALUMINUM/MAGNESIUM/SIMETH 30 ML CUP PO PRN (21:00)
[2016-04-02] MEDS ORDERED: MAGNESIUM HYDROXIDE SUSP 30 ML CUP PO PRN (21:00)
[2016-04-02] MEDS ORDERED: CALCIUM CARBONATE 500 MG CHEWABLE TAB CHEW PRN (21:00)
[2016-04-02] MEDS ORDERED: ALBUTEROL SULFATE 90 MCG/ACT HFA 8 GM INHALER INH PRN (21:00)
[2016-04-02] MEDS ORDERED: DOCUSATE SODIUM 50 MG/SENNA 8.6 MG TAB PO PRN (21:00)
--- NOTE | 2016-04-02 23:58 | EKG ---
Date Performed: 04/01/2016 Time Performed: 15:54:43 PTAGE: 56 years EKG: Sinus rhythm NORMAL ECG PREVIOUS TRACING : 12/25/2015 19.56 DOCTOR: Velia Abrams Interpretating Date/Time 04/02/2016 23:49:41
[2016-04-03] VITALS (8 sets, daily range): BP systolic 109–133; BP diastolic 55–78; PULSE 53–85; RESP 17–22; TEMP 97.6–98.7; O2SAT 93–99
[2016-04-03] MEDS: D5-1/2 NS + KCL 20 MEQ INJ 1,000 ML IV SCH (04:45)
[2016-04-03 06:15] LABS: AUTOMATED NEUTROPHIL # 2.4 TH/MM3 (1.8-7.7); BASOPHIL % 0.6 % (0.0-2.0); EOSINOPHIL # 0.1 TH/MM3 (0-0.4); EOSINOPHIL % 2.9 % (0.0-4.0); HEMATOCRIT 44.8 % (39.0-51.0); HEMO FLAGS DIFF FINAL; LYMPH % 24.4 % (9.0-44.0); MEAN CELL VOLUME 87.7 FL (80.0-100.0); MEAN CORPUSCULAR HEMOGLOBIN 28.4 PG (27.0-34.0); MEAN CORPUSCULAR HGB CONC 32.3 % (32.0-36.0); MONO % 13.1 % (0.0-8.0); PLATELET COUNT 143 TH/MM3 (150-450); RED BLOOD COUNT 5.11 MIL/MM3 (4.50-5.90); RED CELL DISTRIBUTION WIDTH 13.8 % (11.6-17.2); WHITE BLOOD COUNT 4.1 TH/MM3 (4.0-11.0)
[2016-04-03 06:51] LABS: ALKALINE PHOSPHATASE 143 U/L (45-117); ALT (GPT) 1530 U/L (12-78); ANION GAP 4 MEQ/L (5-15); AST (GOT) 871 U/L (15-37); BICARBONATE 29.7 MEQ/L (21.0-32.0); BLOOD UREA NITROGEN 12 MG/DL (7-18); CHLORIDE 104 MEQ/L (98-107); FERRITIN 2287 NG/ML (26-388); GLOMERULAR FILTRATION RATE 86 ML/MIN (>89); POTASSIUM 4.3 MEQ/L (3.5-5.1); SODIUM (NA) 138 MEQ/L (136-145); TOTAL BILIRUBIN ADULT 5.1 MG/DL (0.2-1.0); TRANSFERRIN IRON PROFILE 186 MG/DL (200-360)
--- NOTE | 2016-04-03 09:34 | HHI.GIFU ---
Subjective Remarks Resting in bed. Feeling better. Tolerating diet. No n/v. No abdominal pain at this time. No diarrhea. (Dottie Zhao) Objective Vitals I&O Vital Signs Date Time Temp Pulse Resp B/P Pulse Ox O2 Delivery O2 Flow Rate FiO2 04/03/16 07:20 97.6 53 18 109/55 94 04/03/16 04:42 98.7 85 22 133/78 99 04/03/16 01:25 98.2 73 17 126/74 99 04/02/16 20:10 98.9 68 18 121/67 98 04/02/16 20:00 66 04/02/16 15:42 98.0 61 19 122/62 95 04/02/16 11:25 98.0 65 19 129/58 94 I/O 04/02/16 04/02/16 04/02/16 04/03/16 04/03/16 04/03/16 07:00 15:00 23:00 07:00 15:00 23:00 Intake Total 625 ml Output Total 600 ml Balance 25 ml Intake IV Total 625 ml Output Urine Total 600 ml Laboratory Laboratory Tests Test 04/03/16 05:25 White Blood Count 4.1 Red Blood Count 5.11 Hemoglobin 14.5 Hematocrit 44.8 Mean Corpuscular Volume 87.7 Mean Corpuscular Hemoglobin 28.4 Mean Corpuscular Hemoglobin 32.3 Concent Red Cell Distribution Width 13.8 Platelet Count 143 Mean Platelet Volume 8.5 Neutrophils (%) (Auto) 59.0 Lymphocytes (%) (Auto) 24.4 Monocytes (%) (Auto) 13.1 Eosinophils (%) (Auto) 2.9 Basophils (%) (Auto) 0.6 Neutrophils # (Auto) 2.4 Lymphocytes # (Auto) 1.0 Monocytes # (Auto) 0.5 Eosinophils # (Auto) 0.1 Basophils # (Auto) 0.0 CBC Comment DIFF FINAL Differential Comment Sodium Level 138 Potassium Level 4.3 Chloride Level 104 Carbon Dioxide Level 29.7 Anion Gap 4 Blood Urea Nitrogen 12 Creatinine 0.91 Estimat Glomerular Filtration 86 Rate Random Glucose 95 Calcium Level 8.1 Iron Level 162 Total Iron Binding Capacity 260 Percent Iron Saturation 62.2 Ferritin 2287 Total Bilirubin 5.1 Aspartate Amino Transf 871 (AST/SGOT) Alanine Aminotransferase 1530 (ALT/SGPT) Alkaline Phosphatase 143 Total Protein 6.3 Albumin 2.8 Tumor Marker Alpha Fetoprotein 3.2 Imaging Last Impressions Cholangiopancreatography MRI 04/02/16 0000 Signed Impressions: Service Date/Time: Saturday, April 02, 2016 09:50 - CONCLUSION: 1. No evidence of gallstones in the gallbladder. However, there is some thickening of the gallbladder wall with some fluid around the gallbladder. This can be seen with either acute or chronic gallbladder disease. This needs to be correlated with patient's physical, clinical exam and laboratory values. 2. No evidence of biliary tract obstruction. 3. Nonspecific periportal edema. Manuel Chowdhury MD Abdomen/Pelvis CT 04/01/16 1458 Signed Impressions: Service Date/Time: Friday, April 01, 2016 15:24 - CONCLUSION: 1. CT appearance of the kidneys within normal limits. 2. Unusual rim enhancement within the lumen of the gallbladder. This may be mucosal enhancement and, if so , the gallbladder wall would be thickened. A pedunculated mass or polyp within the gallbladder would be conceivable. Gallbladder ultrasound with color-flow imaging recommended. 3. Left-sided colonic diverticulosis. No acute inflammatory changes. Rangel De La Vega MD Gall Bladder Ultrasound 04/01/16 0000 Signed Impressions: Service Date/Time: Friday, April 01, 2016 17:02 - CONCLUSION: 1. Nonspecific gallbladder wall thickening with small pericholecystic fluid. No measurable mass. Negative sonographic Werner's sign. 2. Upper limits of normal size liver. Rangel De La Vega MD Physical Exam HEENT: Normocephalic; atraumatic; no jaundice. NECK: Neck is supple, no JVD, no lymphadenopathy. CHEST: CTA CARDIAC: RRR. ABDOMEN: Soft, nondistended, RUQ/Epigastric tenderness; no hepatosplenomegaly; bowel sounds are present in all four quadrants. EXTREMITIES: No clubbing, cyanosis, or edema. SKIN: Normal; no rash; no jaundice. [employer]GER: No focal deficits; alert and oriented times three (Dottie Zhao) Assessment and Plan Plan ASSESSMENT: - Acute Hepatitis/Elevated LFTs, labs consistent with acute hepatitis b infection. Abdomen/Pelvis CT (04/01/16)----> 1. CT appearance of the kidneys within normal limits. 2. Unusual rim enhancement within the lumen of the gallbladder. This may be mucosal enhancement and, if so, the gallbladder wall would be thickened. A pedunculated mass or polyp within the gallbladder would be conceivable. Gallbladder ultrasound with color-flow imaging recommended. 3. Left-sided colonic diverticulosis. No acute inflammatory changes. GB Ultrasound (04/01/16)---> 1. Nonspecific gallbladder wall thickening with small pericholecystic fluid. No measurable mass. Negative sonographic Werner's sign. 2. Upper limits of normal size liver. MRCP (04/02/16)------> 1. No evidence of gallstones in the gallbladder. However, there is some thickening of the gallbladder wall with some fluid around the gallbladder. Acetaminophen level < 2.0. Hepatitis Bs Ag (+), Hepatitis B Core IgM Ab (+). Hep Be Ag pending, Hepatitis B DNA PCR pending. Iron saturation 62%, AFP 3.2, Ceruloplasmin pending, Alpha 1 Antitrypsin pending. LFTs slightly increased T. Bili 5.1, AST 871, ALT 1530, ALk Phosph 143. This looks like an acute hepatitis b infection. - Abnormal imaging of GB with mild wall thickening and pericholecystic fluid. Unclear if he has some chronic GB disease, as he reports that he has had intermittent abdominal pain with food intake for 1.5 years, or if this is related to his acute hepatitis. GS following. His current symptoms seem more consistent with acute hepatitis- malaise, fevers, n/v/d, abdominal pain, dark urine. - COPD per primary PLAN: - Heart healthy diet - PT/INR today and in am - LFT in am - Ammonia in am - Await Hep B DNA Viral load - Await Hep Be Ag - Await liver workup - Supportive care - Further recommendations to follow based on results of above - Pt seen and examined by Dr. Royal and myself and this note is written on his behalf (Dottie Zhao) Physician Comments Patient was seen and examined, agree with above note and plan, labs for AM. ( Zak Royal MD) Dottie Zhao Apr 03, 2016 09:34 Zak Royal MD Apr 03, 2016 20:18
[2016-04-03 11:42] LABS: INTERNATIONAL NORMALIZED RATIO 1.1 RATIO
[2016-04-03] MEDS: SODIUM CHLORIDE 0.9% FLUSH 5 ML FLUSH FLUSH SCH ×2 (13:09→21:00)
[2016-04-03] MEDS: MORPHINE SULFATE 4 MG/ML INJ IV PUSH PRN (13:10)
--- NOTE | 2016-04-03 14:17 | MB ---
cc: TAIWO ALBA M.D. DATE OF CONSULTATION: 04/03/2016 REASON FOR CONSULTATION Questionable cholecystitis. HISTORY OF PRESENT ILLNESS This is a 56-year-old gentleman who has been having about a one-week history of malaise, nausea, back pain and abdominal pain. He came into the emergency room originally and was found to have significantly elevated liver enzymes and was admitted to the hospital. He was found to have elevated liver enzymes. Surgery was consulted for evaluation. Subsequent to his admission it was found that he had continued elevation of his liver enzymes, had an ERCP with no stones. His hepatitis profile was positive for acute hepatitis B. He had a little bit of fluid around the gallbladder which was somewhat nonspecific. He complains of some fevers and chills on his review of systems he had no shortness of breath. He mainly complains of nausea and had vomited in the past. This has been going on for about a week with abdominal pain, back pain, thought he had problems with his kidneys because he had what he called hematuria and back pain in the kidney area. PAST MEDICAL HISTORY 1. COPD in the past. 2. Knee replacement. 3. Surgery on his wrist. 4. Skin cancer removed. MEDICATIONS He takes an albuterol inhaler. ALLERGIES He is not known to be allergic to anything. SOCIAL HISTORY He does smoke a little bit. PHYSICAL EXAMINATION GENERAL: On examination he is sitting up in bed. He appears fairly comfortable. NECK: Supple. CHEST: Clear. HEART: Regular rate. ABDOMEN: Thin, soft, without rebound or guarding. Mild tenderness in the midepigastric region. He does not really complain of pain at this point. NEUROLOGIC: He is alert and oriented without focal deficits. LABORATORY DATA White count 4, H&H 14 and 44, platelet counts 143. Chemistry shows markedly elevated liver enzymes across the board. Declining total bilirubin; when he first came in it was 2.8, now 5.1. ALT is 1500, AST 871. Albumin is 2.8. Calcium is 8.1. Toxicology was negative. Urinalysis showed bilirubin in the urine. He had a serology which showed positive for hepatitis B. IMAGING STUDIES He had an MRCP which does not show any stones. There is some thickening of the gallbladder wall. No biliary obstruction. Some mild edema. Abdominal CT scan: Thought there was an enhancing rim around the gallbladder which was not seen on the MRCP. Gallbladder ultrasound was nonspecific. Negative Werner's sign. ASSESSMENT A 56-year-old gentleman whose signs and symptomatology are consistent with acute hepatitis. When further questioning him he thinks he has had gallbladder problems over the last 10-15 years with occasional pain in his right upper quadrant with certain meals. He may have had chronic cholecystitis but at this point his acute hepatitis is the majority of his symptomatology. RECOMMENDATIONS I had a long discussion with the patient about not proceeding with a cholecystectomy during this acute phase of his hepatitis B. Await for the basketball commentator's final recommendations once this hepatitis B is resolved. We can reconsider and reevaluate for consideration of elective cholecystectomy if indicated. This was all discussed with the patient who appeared to understand. Will follow at a distance. I told the nurse he can go ahead and have a diet from my standpoint as there is no surgery planned at this time. MD SHEN Nur/RBOERT /1:30 PM /1:57 PM
--- NOTE | 2016-04-03 19:08 | HHI.PR ---
Subjective Remarks patient seen this morning around 10 AM. Says he is tolerating liquids. Denies any nausea or vomiting currently. Reports abdominal pain is improving. 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 Denies any history of IV drug use, and has not recently been sexually active. Objective Vital Signs Date Time Temp Pulse Resp B/P Pulse Ox O2 Delivery O2 Flow Rate FiO2 04/03/16 15:23 97.9 56 18 133/72 95 04/03/16 12:24 98.3 73 18 119/77 96 04/03/16 08:00 59 04/03/16 07:20 97.6 53 18 109/55 94 04/03/16 04:42 98.7 85 22 133/78 99 04/03/16 01:25 98.2 73 17 126/74 99 04/02/16 20:10 98.9 68 18 121/67 98 04/02/16 20:00 66 I/O 04/02/16 04/02/16 04/02/16 04/03/16 04/03/16 04/03/16 07:00 15:00 23:00 07:00 15:00 23:00 Intake Total 625 ml 240 ml Output Total 600 ml Balance 25 ml 240 ml Intake Oral 240 ml IV Total 625 ml Output Urine Total 600 ml Result Diagram: 04/03/16 0525 04/03/1625 Objective Remarks GENERAL: patient sitting up in bed. Appears comfortable. Alert and oriented x3. SKIN: Warm and dry. HEAD: Normocephalic. EYES: No scleral icterus. No injection or drainage. NECK: Supple, trachea midline. No JVD CARDIOVASCULAR: Regular rate and rhythm without murmurs, gallops, or rubs. RESPIRATORY: Breath sounds equal bilaterally. No accessory muscle use. GASTROINTESTINAL: Abdomen soft. mild right upper quadrant and epigastric tenderness. No rebound or guarding. Positive bowel sounds. MUSCULOSKELETAL: No cyanosis, or edema. BACK: Nontender without obvious deformity. No CVA tenderness. A/P Assessment and Plan //Acute hepatitis B infection. 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 Denies history of IV drug use. - Positive hepatitis B surface antigen - Gastroenterology following. Monitoring LFTs. Diet per GI. Further testing pending. Appreciate assistance. //Gallbladder wall thickening. - MRCP does show thickening of the gallbladder wall with pericholecystic fluid. - Uncertain if this is primary cholecystitis or edema secondary to hepatitis. - General surgery has been and patient not to be a surgical candidate for cholecystitis in the acute stage of hepatitis B. - Appreciate surgery and gastroenterology assistance. Prophylaxis. SCDs. Discharge Planning when tolerating diet and cleared for discharge by gastroenterology. Reese Hillman MD Apr 03, 2016 19:08
[2016-04-03] MEDS ORDERED: RESP: ALBUTEROL 2.5 MG/IPRATROPIUM 0.5 MG NEB (PRN) NEB (19:15)
[2016-04-04] VITALS (8 sets, daily range): BP systolic 98–134; BP diastolic 55–90; PULSE 51–74; RESP 18–20; TEMP 97–98.9; O2SAT 92–95
[2016-04-04] MEDS: D5-1/2 NS + KCL 20 MEQ INJ 1,000 ML IV SCH ×2 (01:00→13:24)
[2016-04-04] MEDS: MORPHINE SULFATE 4 MG/ML INJ IV PUSH PRN (07:47)
[2016-04-04] MEDS: SODIUM CHLORIDE 0.9% FLUSH 5 ML FLUSH FLUSH SCH ×2 (07:47→20:06)
--- NOTE | 2016-04-04 08:20 | HHI.PR ---
Subjective Remarks Follow up for acute hepatitis B. The patient reports the upper/epigastric abdominal pain returned this morning. He has been able to tolerate his food. Denies any nausea or vomiting. Denies any diarrhea. Denies fevers/chills. He continues to deny any drug use, prior transfusions, or sexual activity. Objective Vitals Vital Signs Date Time Temp Pulse Resp B/P Pulse Ox O2 Delivery O2 Flow Rate FiO2 04/04/16 04:12 97.7 58 20 98/59 95 04/04/16 00:13 97.7 55 20 106/55 93 04/03/16 21:13 97.7 69 20 110/58 93 04/03/16 20:00 58 04/03/16 15:23 97.9 56 18 133/72 95 04/03/16 12:24 98.3 73 18 119/77 96 I/O 04/03/16 04/03/16 04/03/16 04/04/16 04/04/16 04/04/16 06:59 14:59 22:59 06:59 14:59 22:59 Intake Total 240 ml Balance 240 ml Intake Oral 240 ml Result Diagram: 04/03/16 0525 04/03/16 0525 Imaging Last Impressions Cholangiopancreatography MRI 04/02/16 0000 Signed Impressions: Service Date/Time: Saturday, April 02, 2016 09:50 - CONCLUSION: 1. No evidence of gallstones in the gallbladder. However, there is some thickening of the gallbladder wall with some fluid around the gallbladder. This can be seen with either acute or chronic gallbladder disease. This needs to be correlated with patient's physical, clinical exam and laboratory values. 2. No evidence of biliary tract obstruction. 3. Nonspecific periportal edema. Manuel Chowdhury MD Abdomen/Pelvis CT 04/01/16 1458 Signed Impressions: Service Date/Time: Friday, April 01, 2016 15:24 - CONCLUSION: 1. CT appearance of the kidneys within normal limits. 2. Unusual rim enhancement within the lumen of the gallbladder. This may be mucosal enhancement and, if so , the gallbladder wall would be thickened. A pedunculated mass or polyp within the gallbladder would be conceivable. Gallbladder ultrasound with color-flow imaging recommended. 3. Left-sided colonic diverticulosis. No acute inflammatory changes. Rangel De La Vega MD Gall Bladder Ultrasound 04/01/16 0000 Signed Impressions: Service Date/Time: Friday, April 01, 2016 17:02 - CONCLUSION: 1. Nonspecific gallbladder wall thickening with small pericholecystic fluid. No measurable mass. Negative sonographic Werner's sign. 2. Upper limits of normal size liver. Rangel De La Vega MD Objective Remarks GENERAL: Well-nourished, well-developed middle aged male patient in [facility]. SKIN: Warm and dry. No rash. HEAD: Normocephalic. Atraumatic. EYES: Pupils equal and round. Mild scleral icterus. No injection or drainage. ENT: No nasal bleeding or discharge. Mucous membranes pink and moist. NECK: Supple. Trachea midline. CARDIOVASCULAR: Regular rate and rhythm. S1, S2 noted. No murmur appreciated. RESPIRATORY: No accessory muscle use. Faint expiratory wheezing, otherwise clear to auscultation. Breath sounds equal bilaterally. GASTROINTESTINAL: Abdomen soft, nondistended, mild diffuse epigastric TTP. Normoactive bowel sounds x4. MUSCULOSKELETAL: No obvious deformities. Extremities without clubbing, cyanosis , or edema. NEUROLOGICAL: Awake and alert. No obvious cranial nerve deficits. Motor grossly within normal limits. Normal speech. PSYCHIATRIC: Appropriate mood and affect; insight and judgment normal. Medications and IVs Current Medications Medications (Trade) Dose Ordered Sig/Rosemarie Route Start Time Stop Time Status Last Admin (NS Flush) 2 ml UNSCH PRN FLUSH 04/01/16 20:30 (NS Flush) 2 ml BID FLUSH 04/01/16 21:00 04/04/16 07:47 (Narcan Inj) 0.4 mg UNSCH PRN IV 04/01/16 20:30 (Morphine Inj) 2 mg Q3H PRN IV PUSH 04/01/16 20:30 04/04/16 07:47 Ondansetron HCl 4 mg 4 mg Q6HR PRN IV PUSH 04/02/16 08:00 (D5-04/01 NS + KCl 20 Meq Inj) 1,000 ml @ 75 mls/hr [id number] IV 04/02/16 09:00 04/03/16 04:45 (Colace) 100 mg BID PRN PO 04/02/16 21:00 (Ly-Colace) 1 tab BID PRN PO 04/02/16 21:00 (Milk Of Magnesia Liq) 30 ml DAILY PRN PO 04/02/16 21:00 (Mag-Al Plus Susp Liq) 30 ml Q6H PRN PO 04/02/16 21:00 (Tums Chew) 1,000 mg TID PRN CHEW 04/02/16 21:00 (Proair Hfa Inh) 1 puff BID PRN INH 04/02/16 21:00 Urinary Catheter: No Vascular Central Line Catheter: No A/P Problem List: (1) Abdominal pain ICD Code: R10.9 Status: Acute (2) Elevated LFTs ICD Code: R94.5 Status: Acute Assessment and Plan 56-year-old male with a history of COPD presented to the ED with increasing abdominal pain Acute hepatitis B infection with Transaminitis - 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 Denies history of IV drug use, risky sexual activity, or prior transfusion; however question truthfulness. - Positive hepatitis B surface antigen - Gastroenterology following. Diet per GI. Further testing pending. Appreciate assistance. - Monitoring LFTs, still trending up today. Gallbladder wall thickening, possible chronic cholecystitis. - MRCP does show thickening of the gallbladder wall with pericholecystic fluid. - Uncertain if this is primary cholecystitis or edema secondary to hepatitis. - General surgery consulted, patient not to be a surgical candidate for cholecystitis in the acute stage of hepatitis B. - Appreciate surgery and gastroenterology assistance. - Outpatient f/up with surgery COPD: Acute on Chronic. Wheezing on exam. - Will schedule duonebs q6h and continue albuterol inh/neb prn - Monitor for improvement DVT Prophylaxis. SCDs. Written by Cheryle Allen, acting as scribe for Dr. Camejo on 04/04/16 at 08:15. The documentation accurately reflects the work performed [id number] by me on at 0815 Discharge Planning Discharge when cleared by GI, however LFTs still trending up. Problem Qualifiers (1) Abdominal pain: Qualified Code: R10.11 - Right upper quadrant abdominal pain Cheryle Allen PA-C Apr 04, 2016 08:19 Dung Camejo MD Apr 04, 2016 16:27
[2016-04-04] MEDS: RESP: ALBUTEROL 2.5 MG/IPRATROPIUM 0.5 MG NEB (SCH) NEB ×3 (09:30→23:13)
[2016-04-04 09:35] LABS: AUTOMATED NEUTROPHIL # 2.8 TH/MM3 (1.8-7.7); BASOPHIL % 0.6 % (0.0-2.0); EOSINOPHIL # 0.1 TH/MM3 (0-0.4); EOSINOPHIL % 3.1 % (0.0-4.0); HEMATOCRIT 47.5 % (39.0-51.0); HEMO FLAGS DIFF FINAL; LYMPH % 25.9 % (9.0-44.0); LYMPHOCYTE # 1.2 TH/MM3 (1.0-4.8); MEAN CELL VOLUME 88.5 FL (80.0-100.0); MEAN CORPUSCULAR HEMOGLOBIN 29.3 PG (27.0-34.0); MEAN CORPUSCULAR HGB CONC 33.2 % (32.0-36.0); MONO % 10.9 % (0.0-8.0); NEUT % 59.5 % (16.0-70.0); PLATELET COUNT 157 TH/MM3 (150-450); RED BLOOD COUNT 5.37 MIL/MM3 (4.50-5.90); WHITE BLOOD COUNT 4.7 TH/MM3 (4.0-11.0)
[2016-04-04 09:40] LABS: INTERNATIONAL NORMALIZED RATIO 1.1 RATIO; PROTHROMBIN TIME - PATIENT 12.1 SEC (9.8-11.6)
[2016-04-04 10:04] LABS: BICARBONATE 30.9 MEQ/L (21.0-32.0); INDIRECT BILIRUBIN 1.2 MG/DL (0.0-0.8); POTASSIUM 4.4 MEQ/L (3.5-5.1); TOTAL BILIRUBIN ADULT 5.3 MG/DL (0.2-1.0)
--- NOTE | 2016-04-04 12:25 | HHI.GIFU ---
Subjective Remarks Resting in bed. States he had a rough night, more RUQ pain and nausea. No vomiting. (Dottie Zhao) Objective Vitals I&O Vital Signs Date Time Temp Pulse Resp B/P Pulse Ox O2 Delivery O2 Flow Rate FiO2 04/04/16 08:00 97.0 51 18 105/90 92 04/04/16 04:12 97.7 58 20 98/59 95 04/04/16 00:13 97.7 55 20 106/55 93 04/03/16 21:13 97.7 69 20 110/58 93 04/03/16 20:00 58 04/03/16 15:23 97.9 56 18 133/72 95 04/03/16 12:24 98.3 73 18 119/77 96 I/O 04/03/16 04/03/16 04/03/16 04/04/16 04/04/16 04/04/16 07:00 15:00 23:00 07:00 15:00 23:00 Intake Total 240 ml Balance 240 ml Intake Oral 240 ml Laboratory Laboratory Tests Test 04/04/16 04/04/16 09:10 09:15 Ammonia 17 White Blood Count 4.7 Red Blood Count 5.37 Hemoglobin 15.7 Hematocrit 47.5 Mean Corpuscular Volume 88.5 Mean Corpuscular Hemoglobin 29.3 Mean Corpuscular Hemoglobin 33.2 Concent Red Cell Distribution Width 14.0 Platelet Count 157 Mean Platelet Volume 8.1 Neutrophils (%) (Auto) 59.5 Lymphocytes (%) (Auto) 25.9 Monocytes (%) (Auto) 10.9 Eosinophils (%) (Auto) 3.1 Basophils (%) (Auto) 0.6 Neutrophils # (Auto) 2.8 Lymphocytes # (Auto) 1.2 Monocytes # (Auto) 0.5 Eosinophils # (Auto) 0.1 Basophils # (Auto) 0.0 CBC Comment DIFF FINAL Differential Comment Prothrombin Time 12.1 Prothromb Time International 1.1 Ratio Sodium Level 138 Potassium Level 4.4 Chloride Level 103 Carbon Dioxide Level 30.9 Anion Gap 4 Blood Urea Nitrogen 11 Creatinine 0.98 Estimat Glomerular Filtration 79 Rate Random Glucose 86 Calcium Level 8.3 Total Bilirubin 5.3 Direct Bilirubin 4.1 Indirect Bilirubin 1.2 Aspartate Amino Transf 1358 (AST/SGOT) Alanine Aminotransferase 2114 (ALT/SGPT) Alkaline Phosphatase 160 Total Protein 7.0 Albumin 3.2 Imaging Last Impressions Cholangiopancreatography MRI 04/02/16 0000 Signed Impressions: Service Date/Time: Saturday, April 02, 2016 09:50 - CONCLUSION: 1. No evidence of gallstones in the gallbladder. However, there is some thickening of the gallbladder wall with some fluid around the gallbladder. This can be seen with either acute or chronic gallbladder disease. This needs to be correlated with patient's physical, clinical exam and laboratory values. 2. No evidence of biliary tract obstruction. 3. Nonspecific periportal edema. Manuel Chowdhury MD Abdomen/Pelvis CT 04/01/16 1458 Signed Impressions: Service Date/Time: Friday, April 01, 2016 15:24 - CONCLUSION: 1. CT appearance of the kidneys within normal limits. 2. Unusual rim enhancement within the lumen of the gallbladder. This may be mucosal enhancement and, if so , the gallbladder wall would be thickened. A pedunculated mass or polyp within the gallbladder would be conceivable. Gallbladder ultrasound with color-flow imaging recommended. 3. Left-sided colonic diverticulosis. No acute inflammatory changes. Rangel De La Vega MD Gall Bladder Ultrasound 04/01/16 0000 Signed Impressions: Service Date/Time: Friday, April 01, 2016 17:02 - CONCLUSION: 1. Nonspecific gallbladder wall thickening with small pericholecystic fluid. No measurable mass. Negative sonographic Werner's sign. 2. Upper limits of normal size liver. Rangel De La Vega MD Physical Exam HEENT: Normocephalic; atraumatic; no jaundice. NECK: Neck is supple, no JVD, no lymphadenopathy. CHEST: CTA CARDIAC: RRR. ABDOMEN: Soft, nondistended, RUQ/Epigastric tenderness; no hepatosplenomegaly; bowel sounds are present in all four quadrants. EXTREMITIES: No clubbing, cyanosis, or edema. SKIN: Normal; no rash; no jaundice. TAVERN KEEPER: No focal deficits; alert and oriented times three (Dottie Zhao) Assessment and Plan Plan ASSESSMENT: - Acute Hepatitis/Elevated LFTs, labs consistent with acute hepatitis b infection. Abdomen/Pelvis CT (04/01/16)----> 1. CT appearance of the kidneys within normal limits. 2. Unusual rim enhancement within the lumen of the gallbladder. This may be mucosal enhancement and, if so, the gallbladder wall would be thickened. A pedunculated mass or polyp within the gallbladder would be conceivable. Gallbladder ultrasound with color-flow imaging recommended. 3. Left-sided colonic diverticulosis. No acute inflammatory changes. GB Ultrasound (04/01/16)---> 1. Nonspecific gallbladder wall thickening with small pericholecystic fluid. No measurable mass. Negative sonographic Werner's sign. 2. Upper limits of normal size liver. MRCP (04/02/16)------> 1. No evidence of gallstones in the gallbladder. However, there is some thickening of the gallbladder wall with some fluid around the gallbladder. Acetaminophen level < 2.0. Hepatitis Bs Ag (+), Hepatitis B Core IgM Ab (+). Hep Be Ag pending, Hepatitis B DNA PCR pending. Iron saturation 62%, AFP 3.2, Ceruloplasmin pending, Alpha 1 Antitrypsin pending. ROSEMARIE negative, AMA pending, ASMA pending. LFTs increased to T. Bili 5.3, AST 1358, ALT 2114, Alk Phosph 160 and clinically is more symptomatic today. PT/INR is stable. Will need to follow labs. Once these are trending down and he is doing well clinically, he can go home with outpatient follow up. D/W patient precautions for hepatitis B. - Abnormal imaging of GB with mild wall thickening and pericholecystic fluid. Unclear if he has some chronic GB disease, as he reports that he has had intermittent abdominal pain with food intake for 1.5 years, or if this is related to his acute hepatitis. GS following. His current symptoms seem more consistent with acute hepatitis- malaise, fevers, n/v/d, abdominal pain, dark urine. - COPD per primary PLAN: - Heart healthy diet - LFT, PT/INR, Ammonia am - Await Hep B DNA Viral load - Await Hep Be Ag - Await liver workup - Supportive care - Further recommendations to follow based on results of above - Pt seen and examined by Dr. Royal and myself and this note is written on his behalf (Dottie Zhao) Physician Comments Patient was seen and examined, agree with above note and plan,supportive care. ( Zak Royal MD) Dottie Zhao Apr 04, 2016 12:25 Zak Royal MD Apr 04, 2016 20:10
[2016-04-05] VITALS (7 sets, daily range): BP systolic 108–148; BP diastolic 55–72; PULSE 53–66; RESP 18–20; TEMP 98.2–98.7; O2SAT 94–96
[2016-04-05] MEDS: D5-1/2 NS + KCL 20 MEQ INJ 1,000 ML IV SCH ×2 (00:01→15:43)
[2016-04-05] MEDS: MORPHINE SULFATE 4 MG/ML INJ IV PUSH PRN ×2 (00:01→11:49)
[2016-04-05] MEDS: RESP: ALBUTEROL 2.5 MG/IPRATROPIUM 0.5 MG NEB (SCH) NEB ×3 (05:11→20:00)
--- NOTE | 2016-04-05 09:52 | HHI.PR ---
Subjective Remarks Follow-up for acute hepatitis B. The patient is complaining of upper abdomen pain today, unchanged. He has been tolerating diet. He does have some lower back discomfort from lying in bed. Objective Vitals Vital Signs Date Time Temp Pulse Resp B/P Pulse Ox O2 Delivery O2 Flow Rate FiO2 04/05/16 07:23 98.2 53 19 108/55 95 04/05/16 04:45 98.7 56 18 124/71 96 04/04/16 23:20 98.9 55 20 131/57 95 04/04/16 20:45 98.9 74 20 134/58 93 04/04/16 20:33 59 04/04/16 16:50 97.2 60 18 115/56 93 04/04/16 12:25 97.1 57 18 124/56 92 I/O 04/04/16 04/04/16 04/04/16 04/05/16 04/05/16 04/05/16 07:00 15:00 23:00 07:00 15:00 23:00 Intake Total 480 ml 1181 ml Balance 480 ml 1181 ml Intake Oral 480 ml 480 ml IV Total 701 ml # Voids 3 4 # Bowel Movements 2 Result Diagram: 04/04/16 0915 04/04/16 0915 Imaging Last Impressions Cholangiopancreatography MRI 04/02/16 0000 Signed Impressions: Service Date/Time: Saturday, April 02, 2016 09:50 - CONCLUSION: 1. No evidence of gallstones in the gallbladder. However, there is some thickening of the gallbladder wall with some fluid around the gallbladder. This can be seen with either acute or chronic gallbladder disease. This needs to be correlated with patient's physical, clinical exam and laboratory values. 2. No evidence of biliary tract obstruction. 3. Nonspecific periportal edema. Manuel Chowdhury MD Abdomen/Pelvis CT 04/01/16 1458 Signed Impressions: Service Date/Time: Friday, April 01, 2016 15:24 - CONCLUSION: 1. CT appearance of the kidneys within normal limits. 2. Unusual rim enhancement within the lumen of the gallbladder. This may be mucosal enhancement and, if so , the gallbladder wall would be thickened. A pedunculated mass or polyp within the gallbladder would be conceivable. Gallbladder ultrasound with color-flow imaging recommended. 3. Left-sided colonic diverticulosis. No acute inflammatory changes. Rangel De La Vega MD Gall Bladder Ultrasound 04/01/16 0000 Signed Impressions: Service Date/Time: Friday, April 01, 2016 17:02 - CONCLUSION: 1. Nonspecific gallbladder wall thickening with small pericholecystic fluid. No measurable mass. Negative sonographic Werner's sign. 2. Upper limits of normal size liver. Rangel De La Vega MD Objective Remarks GENERAL: Well-developed well-nourished. In no acute distress. SKIN: Warm and dry. No lesions noted. HEENT: Normocephalic. Pupils equal and round. Mucous membranes pink and moist. CARDIOVASCULAR: Regular rate and rhythm. No murmur appreciated. RESPIRATORY: No accessory muscle use. Clear to auscultation. Breath sounds equal bilaterally. GASTROINTESTINAL: Abdomen soft, RUQ TTP, nondistended. Bowel sounds x4. MUSCULOSKELETAL: No obvious deformities. No clubbing or cyanosis. No edema. NEUROLOGICAL: Awake and alert. No focal neurological deficits. Moves upper and lower extremities spontaneously. Normal speech. PSYCHIATRIC: Appropriate mood and affect; insight and judgment normal. 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 Denies history of IV drug use, risky sexual activity, or prior transfusion. Positive hepatitis B surface antigen - Gastroenterology following. Diet per GI. Further testing pending. Appreciate assistance. - Monitoring LFTs, repeat CMP pending Gallbladder wall thickening, possible chronic cholecystitis. MRCP does show thickening of the gallbladder wall with pericholecystic fluid. Uncertain if this is primary cholecystitis or edema secondary to hepatitis. - General surgery consulted, patient not to be a surgical candidate for cholecystitis in the acute stage of hepatitis B. - Appreciate surgery and gastroenterology assistance. - Outpatient f/up with surgery COPD: Acute on Chronic. Had wheezing on exam. - Scheduled duonebs q6h and continue albuterol inh/neb prn - Monitor for improvement DVT Prophylaxis. SCDs. Written by Fran Isabel, acting as scribe for Dr. Camejo on 1/6/17 at 09:51. The documentation accurately reflects the work performed [id number] by me on at [id number] Discharge Planning Follow up results of CMP today. If LFTs are trending down and okay with GI, possible discharge. Problem Qualifiers (1) Abdominal pain: Qualified Code: R10.11 - Right upper quadrant abdominal pain Fran Isabel Apr 05, 2016 09:52 Dung Camejo MD Apr 05, 2016 16:01
[2016-04-05] MEDS: SODIUM CHLORIDE 0.9% FLUSH 5 ML FLUSH FLUSH SCH ×2 (11:46→20:30)
[2016-04-05 12:51] LABS: ALKALINE PHOSPHATASE 133 U/L (45-117); ALT (GPT) 1901 U/L (12-78); ANION GAP 7 MEQ/L (5-15); AST (GOT) 1057 U/L (15-37); BICARBONATE 29.8 MEQ/L (21.0-32.0); BLOOD UREA NITROGEN 11 MG/DL (7-18); CHLORIDE 102 MEQ/L (98-107); GLOMERULAR FILTRATION RATE 90 ML/MIN (>89); MAGNESIUM 1.8 MG/DL (1.5-2.5); POTASSIUM 3.9 MEQ/L (3.5-5.1); SODIUM (NA) 139 MEQ/L (136-145); TOTAL BILIRUBIN ADULT 5.2 MG/DL (0.2-1.0)
--- NOTE | 2016-04-05 13:07 | HHI.GIFU ---
Subjective Remarks Resting in bed. C/O epigastric discomfort. No n/v. One loose stool. (Dottie Zhao KRISTEN) Objective Vitals I&O Vital Signs Date Time Temp Pulse Resp B/P Pulse Ox O2 Delivery O2 Flow Rate FiO2 04/05/16 11:16 98.2 62 19 115/59 95 04/05/16 07:23 98.2 53 19 108/55 95 04/05/16 04:45 98.7 56 18 124/71 96 04/04/16 23:20 98.9 55 20 131/57 95 04/04/16 20:45 98.9 74 20 134/58 93 04/04/16 20:33 59 04/04/16 16:50 97.2 60 18 115/56 93 I/O 04/04/16 04/04/16 04/04/16 04/05/16 04/05/16 04/05/16 07:00 15:00 23:00 07:00 15:00 23:00 Intake Total 480 ml 1181 ml Balance 480 ml 1181 ml Intake Oral 480 ml 480 ml IV Total 701 ml # Voids 3 4 # Bowel Movements 2 Laboratory Laboratory Tests Test 04/05/16 11:28 Sodium Level 139 Potassium Level 3.9 Chloride Level 102 Carbon Dioxide Level 29.8 Anion Gap 7 Blood Urea Nitrogen 11 Creatinine 0.87 Estimat Glomerular Filtration 90 Rate Random Glucose 127 Calcium Level 8.1 Magnesium Level 1.8 Total Bilirubin 5.2 Aspartate Amino Transf 1057 (AST/SGOT) Alanine Aminotransferase 1901 (ALT/SGPT) Alkaline Phosphatase 133 Total Protein 6.2 Albumin 2.7 Imaging Last Impressions Cholangiopancreatography MRI 04/02/16 0000 Signed Impressions: Service Date/Time: Saturday, April 02, 2016 09:50 - CONCLUSION: 1. No evidence of gallstones in the gallbladder. However, there is some thickening of the gallbladder wall with some fluid around the gallbladder. This can be seen with either acute or chronic gallbladder disease. This needs to be correlated with patient's physical, clinical exam and laboratory values. 2. No evidence of biliary tract obstruction. 3. Nonspecific periportal edema. Manuel Chowdhury MD Abdomen/Pelvis CT 04/01/16 1458 Signed Impressions: Service Date/Time: Friday, April 01, 2016 15:24 - CONCLUSION: 1. CT appearance of the kidneys within normal limits. 2. Unusual rim enhancement within the lumen of the gallbladder. This may be mucosal enhancement and, if so , the gallbladder wall would be thickened. A pedunculated mass or polyp within the gallbladder would be conceivable. Gallbladder ultrasound with color-flow imaging recommended. 3. Left-sided colonic diverticulosis. No acute inflammatory changes. Rangel De La Vega MD Gall Bladder Ultrasound 04/01/16 0000 Signed Impressions: Service Date/Time: Friday, April 01, 2016 17:02 - CONCLUSION: 1. Nonspecific gallbladder wall thickening with small pericholecystic fluid. No measurable mass. Negative sonographic Werner's sign. 2. Upper limits of normal size liver. Rangel De La Vega MD Physical Exam HEENT: Normocephalic; atraumatic; no jaundice. NECK: Neck is supple, no JVD, no lymphadenopathy. CHEST: CTA CARDIAC: RRR. ABDOMEN: Soft, nondistended, RUQ/Epigastric tenderness; no hepatosplenomegaly; bowel sounds are present in all four quadrants. EXTREMITIES: No clubbing, cyanosis, or edema. SKIN: Normal; no rash; no jaundice. RN PROGRESSIVE CARE UNIT: No focal deficits; alert and oriented times three (Dottie Zhao) Assessment and Plan Plan ASSESSMENT: - Acute Hepatitis/Elevated LFTs, labs consistent with acute hepatitis b infection. Abdomen/Pelvis CT (04/01/16)----> 1. CT appearance of the kidneys within normal limits. 2. Unusual rim enhancement within the lumen of the gallbladder. This may be mucosal enhancement and, if so, the gallbladder wall would be thickened. A pedunculated mass or polyp within the gallbladder would be conceivable. Gallbladder ultrasound with color-flow imaging recommended. 3. Left-sided colonic diverticulosis. No acute inflammatory changes. GB Ultrasound (04/01/16)---> 1. Nonspecific gallbladder wall thickening with small pericholecystic fluid. No measurable mass. Negative sonographic Werner's sign. 2. Upper limits of normal size liver. MRCP (04/02/16)------> 1. No evidence of gallstones in the gallbladder. However, there is some thickening of the gallbladder wall with some fluid around the gallbladder. Acetaminophen level < 2.0. Hepatitis Bs Ag (+), Hepatitis B Core IgM Ab (+). Hep Be Ag pending, Hepatitis B DNA PCR pending. Iron saturation 62%, AFP 3.2, Ceruloplasmin 31 , Alpha 1 Antitrypsin 218. ROSEMARIE negative, AMA pending, ASMA pending. LFTs seem to be plateauing/slight improvment, expect these to trend down more tomorrow. T. Bili 5.2, AST 1057, ALT 1901, Alk Phosph 133. Cont. Supportive care. Can be discontinued once labs are trending down more. However, will need repeat labs in 3 days and FU at [facility] in one week. No acetaminophen/etoh/OTC meds/herbal supplements- d/ w patient. D/W patient Hep. B precautions. - Abnormal imaging of GB with mild wall thickening and pericholecystic fluid. Unclear if he has some chronic GB disease, as he reports that he has had intermittent abdominal pain with food intake for 1.5 years, or if this is related to his acute hepatitis. GS following. His current symptoms seem more consistent with acute hepatitis- malaise, fevers, n/v/d, abdominal pain, dark urine. - COPD per primary PLAN: - Heart healthy diet - LFT in am - Await Hep B DNA Viral load - Await Hep Be Ag - Await AMA - If labs are trending down in am, okay to d/c home in am - Will need repeat LFT next week and [facility] FU in one week - No ETOH, Acetaminophen, OTC meds, Herbal supplements- D/W patient - D/W Hepatitis B precautions - Pt seen and examined by Dr. Royal and myself and this note is written on his behalf (Dottie Zhao) Physician Comments Patient was seen and examined, agree with above note and plan, home soon if LFTs improving. (Zak Royal MD) Dottie Zhao Apr 05, 2016 13:07 Zak Royal MD Apr 06, 2016 07:42
[2016-04-06 00:22] VITALS: BP 110/59; PULSE 64; RESP 20; TEMP 98.7; O2SAT 94
[2016-04-06] MEDS: D5-1/2 NS + KCL 20 MEQ INJ 1,000 ML IV SCH (01:25)
[2016-04-06 05:16] VITALS: BP 107/60; PULSE 61; RESP 20; TEMP 98.7; O2SAT 95
[2016-04-06 05:32] LABS: INDIRECT BILIRUBIN 1.1 MG/DL (0.0-0.8)
[2016-04-06 07:13] VITALS: BP 101/59; PULSE 65; RESP 18; TEMP 97.5; O2SAT 96
[2016-04-06] MEDS: RESP: ALBUTEROL 2.5 MG/IPRATROPIUM 0.5 MG NEB (SCH) NEB (07:20)
--- NOTE | 2016-04-06 07:56 | HHI.DS ---
Dr. Royal Discharge Summary Admission Date Apr 01, 2016 at 20:27 Discharge Date: Apr 06, 2016 Admitting Diagnosis cholecystitis (1) Abdominal pain ICD Code: R10.9 Diagnosis: Principal (2) Elevated LFTs ICD Code: R94.5 Diagnosis: Principal Procedures None Brief History - From Admission History taken from patient and ER physician. 56-year-old male with a history of COPD presented to the ED with increasing abdominal pain and hematuria. Patient states on Friday he felt like he had the flu with symptoms of nausea , vomiting, diarrhea, chills and fever. He states he vomited 4-5 times that day and multiple episodes of diarrhea. He is unsure how high his fever was but he states he just felt warm. He was also experiencing severe epigastric and left lower quadrant abdominal pain. On he developed hematuria, and the abdominal pain continued. The N/V/ D had subsided on . Friday he was able to go to work but did not feel good all day, and patient states over the weekend he spent all his time in bed. Today the abdominal pain continued to get worse so he presented to the ED. Patient states for the last 2 years he has had on and off right upper quadrant abdominal pain usually when he eats. He does admit to an unhealthy diet, as he lives alone and is always working. He denies any history of liver disease or hepatitis. He denies any chest pain or short of breath. CBC/BMP: 04/04/16 0915 04/05/16 1128 Significant Findings Laboratory Tests Test 04/03/16 04/04/16 04/05/16 04/06/16 11:02 09:15 11:28 04:42 Prothrombin Time 12.0 SEC 12.1 SEC (9.8-11.6) (9.8-11.6) Monocytes (%) (Auto) 10.9 % (0.0-8.0) Anion Gap 4 MEQ/L (5-15) Estimat Glomerular Filtration 79 ML/MIN (>89) Rate Calcium Level 8.3 MG/DL 8.1 MG/DL (8.5-10.1) (8.5-10.1) Total Bilirubin 5.3 MG/DL 5.2 MG/DL 5.0 MG/DL (0.2-1.0) (0.2-1.0) (0.2-1.0) Direct Bilirubin 4.1 MG/DL 3.9 MG/DL (0.0-0.2) (0.0-0.2) Indirect Bilirubin 1.2 MG/DL 1.1 MG/DL (0.0-0.8) (0.0-0.8) Aspartate Amino Transf 1358 U/L 1057 U/L 842 U/L (15-37) (AST/SGOT) (15-37) (15-37) Alanine Aminotransferase 2114 U/L 1901 U/L 1605 U/L (ALT/SGPT) (12-78) (12-78) (12-78) Alkaline Phosphatase 160 U/L 133 U/L 121 U/L (45-117) (45-117) (45-117) Albumin 3.2 GM/DL 2.7 GM/DL 2.4 GM/DL (3.4-5.0) (3.4-5.0) (3.4-5.0) Random Glucose 127 MG/DL (74-106) Total Protein 6.2 GM/DL 5.5 GM/DL (6.4-8.2) (6.4-8.2) Imaging Last Impressions Cholangiopancreatography MRI 04/02/16 0000 Signed Impressions: Service Date/Time: Saturday, April 02, 2016 09:50 - CONCLUSION: 1. No evidence of gallstones in the gallbladder. However, there is some thickening of the gallbladder wall with some fluid around the gallbladder. This can be seen with either acute or chronic gallbladder disease. This needs to be correlated with patient's physical, clinical exam and laboratory values. 2. No evidence of biliary tract obstruction. 3. Nonspecific periportal edema. Manuel Chowdhury MD Abdomen/Pelvis CT 04/01/16 1458 Signed Impressions: Service Date/Time: Friday, April 01, 2016 15:24 - CONCLUSION: 1. CT appearance of the kidneys within normal limits. 2. Unusual rim enhancement within the lumen of the gallbladder. This may be mucosal enhancement and, if so , the gallbladder wall would be thickened. A pedunculated mass or polyp within the gallbladder would be conceivable. Gallbladder ultrasound with color-flow imaging recommended. 3. Left-sided colonic diverticulosis. No acute inflammatory changes. Rangel De La Vega MD Gall Bladder Ultrasound 04/01/16 0000 Signed Impressions: Service Date/Time: Friday, April 01, 2016 17:02 - CONCLUSION: 1. Nonspecific gallbladder wall thickening with small pericholecystic fluid. No measurable mass. Negative sonographic Werner's sign. 2. Upper limits of normal size liver. Rangel De La Vega MD PE at Discharge GENERAL: Well-nourished, well-developed middle aged male patient in NAD. SKIN: Warm and dry. No rash. HEAD: Normocephalic. Atraumatic. EYES: Pupils equal and round. Mild scleral icterus. No injection or drainage. ENT: No nasal bleeding or discharge. Mucous membranes pink and moist. NECK: Supple. Trachea midline. CARDIOVASCULAR: Regular rate and rhythm. S1, S2 noted. No murmur appreciated. RESPIRATORY: No accessory muscle use. Faint expiratory wheezing, otherwise clear to auscultation. Breath sounds equal bilaterally. GASTROINTESTINAL: Abdomen soft, nondistended, mild diffuse epigastric TTP. Normoactive bowel sounds x4. MUSCULOSKELETAL: No obvious deformities. Extremities without clubbing, cyanosis , or edema. NEUROLOGICAL: Awake and alert. No obvious cranial nerve deficits. Motor grossly within normal limits. Normal speech. PSYCHIATRIC: Appropriate mood and affect; insight and judgment normal. Pt update on day of discharge Denies any abdominal pain. Tolerating diet. Educated patient on barrier protection use with sexual contact. 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 Denies history of IV drug use, risky sexual activity, or prior transfusion. Positive hepatitis B surface antigen Gastroenterology following. Discussed with GI, cleared for outpatient follow up if LFTs continue to trend down. LFTs trending down. Tolerating diet. - Monitoring LFTs - Outpatient GI follow-up Gallbladder wall thickening, possible chronic cholecystitis. MRCP does show thickening of the gallbladder wall with pericholecystic fluid. Uncertain if this is primary cholecystitis or edema secondary to hepatitis. - General surgery consulted, patient not to be a surgical candidate for cholecystectomy currently in the acute stage of hepatitis B. - Appreciate surgery and gastroenterology assistance. - Outpatient f/up with surgery COPD: Acute on Chronic. Had wheezing on exam, resolved - Nebs prn Pt Condition on Discharge: Stable Discharge Disposition: Discharge Home Discharge Time: > 30 minutes Discharge Instructions DIET: Follow Instructions for: Heart Healthy Diet Activities you can perform: Regular-No Restrictions Follow up Referrals: Gastroenterology - 1 Week @ [facility] New Orders: HEPATIC FUNCTION [facility] - 2-3 Days Continued Medications: Albuterol 18 GM Inh (Ventolin Hfa 18 GM Inh) 90 Mcg/Act Aer 1 PUFF INH BID PRN SHORTNESS OF BREATH #0 Ref 0 INHALER Albuterol Neb (Albuterol Neb) 2.5 Mg/0.5 Ml Neb 2.5 MG NEB Q4HR NEB Note: The Albuterol Sulfate Inhalation Solution is concentrated and must be diluted. Read complete instructions carefully before using. PRN SOB/WHEEZING EA Additional Information Written by Fran Isabel, acting as scribe for Dr. Camejo on 04/06/16 at 07:56. Fran Isabel Apr 06, 2016 07:56
[2016-04-06] MEDS: SODIUM CHLORIDE 0.9% FLUSH 5 ML FLUSH FLUSH SCH (08:14)
--- NOTE | 2016-04-06 10:52 | HHI.GIFU ---
Subjective Remarks Resting in bed. Doing well. Tolerating diet. Mild upper abdominal tenderness. Concerned that he does not have insurance and will have a hard time following up. Instructed him to call the office Friday for information where he can go for discounted labs. D/W pt importance of followup and the fact that he cannot take ANY OTC meds, herbal meds, acetaminophen, or ETOH. verbalizes understanding. (Dottie Zhao) Objective Vitals I&O Vital Signs Date Time Temp Pulse Resp B/P Pulse Ox O2 Delivery O2 Flow Rate FiO2 04/06/16 07:13 97.5 65 18 101/59 96 04/06/16 05:16 98.7 61 20 107/60 95 04/06/16 00:22 98.7 64 20 110/59 94 04/05/16 20:52 98.7 66 20 116/60 94 04/05/16 20:00 61 04/05/16 15:41 64 148/72 94 04/05/16 11:16 98.2 62 19 115/59 95 Laboratory Laboratory Tests Test 04/05/16 04/06/16 11:28 04:42 Sodium Level 139 Potassium Level 3.9 Chloride Level 102 Carbon Dioxide Level 29.8 Anion Gap 7 Blood Urea Nitrogen 11 Creatinine 0.87 Estimat Glomerular Filtration 90 Rate Random Glucose 127 Calcium Level 8.1 Magnesium Level 1.8 Total Bilirubin 5.2 5.0 Aspartate Amino Transf 1057 842 (AST/SGOT) Alanine Aminotransferase 1901 1605 (ALT/SGPT) Alkaline Phosphatase 133 121 Total Protein 6.2 5.5 Albumin 2.7 2.4 Direct Bilirubin 3.9 Indirect Bilirubin 1.1 Imaging Last Impressions Cholangiopancreatography MRI 04/02/16 0000 Signed Impressions: Service Date/Time: Saturday, April 02, 2016 09:50 - CONCLUSION: 1. No evidence of gallstones in the gallbladder. However, there is some thickening of the gallbladder wall with some fluid around the gallbladder. This can be seen with either acute or chronic gallbladder disease. This needs to be correlated with patient's physical, clinical exam and laboratory values. 2. No evidence of biliary tract obstruction. 3. Nonspecific periportal edema. Manuel Chowdhury MD Abdomen/Pelvis CT 04/01/16 1458 Signed Impressions: Service Date/Time: Friday, April 01, 2016 15:24 - CONCLUSION: 1. CT appearance of the kidneys within normal limits. 2. Unusual rim enhancement within the lumen of the gallbladder. This may be mucosal enhancement and, if so , the gallbladder wall would be thickened. A pedunculated mass or polyp within the gallbladder would be conceivable. Gallbladder ultrasound with color-flow imaging recommended. 3. Left-sided colonic diverticulosis. No acute inflammatory changes. Rangel De La Vega MD Gall Bladder Ultrasound 04/01/16 0000 Signed Impressions: Service Date/Time: Friday, April 01, 2016 17:02 - CONCLUSION: 1. Nonspecific gallbladder wall thickening with small pericholecystic fluid. No measurable mass. Negative sonographic Werner's sign. 2. Upper limits of normal size liver. Rangel De La Vega MD Physical Exam HEENT: Normocephalic; atraumatic; no jaundice. NECK: Neck is supple, no JVD, no lymphadenopathy. CHEST: CTA CARDIAC: RRR. ABDOMEN: Soft, nondistended, mild RUQ tenderness; no hepatosplenomegaly; bowel sounds are present in all four quadrants. EXTREMITIES: No clubbing, cyanosis, or edema. SKIN: Normal; no rash; no jaundice. NEWSROOM INTERN: No focal deficits; alert and oriented times three (Dottie Zhao) Assessment and Plan Plan ASSESSMENT: - Acute Hepatitis/Elevated LFTs, labs consistent with acute hepatitis b infection. Abdomen/Pelvis CT (04/01/16)----> 1. CT appearance of the kidneys within normal limits. 2. Unusual rim enhancement within the lumen of the gallbladder. This may be mucosal enhancement and, if so, the gallbladder wall would be thickened. A pedunculated mass or polyp within the gallbladder would be conceivable. Gallbladder ultrasound with color-flow imaging recommended. 3. Left-sided colonic diverticulosis. No acute inflammatory changes. GB Ultrasound (04/01/16)---> 1. Nonspecific gallbladder wall thickening with small pericholecystic fluid. No measurable mass. Negative sonographic Werner's sign. 2. Upper limits of normal size liver. MRCP (04/02/16)------> 1. No evidence of gallstones in the gallbladder. However, there is some thickening of the gallbladder wall with some fluid around the gallbladder. Acetaminophen level < 2.0. Hepatitis Bs Ag (+), Hepatitis B Core IgM Ab (+). Hep Be Ag pending, Hepatitis B DNA PCR pending. Iron saturation 62%, AFP 3.2, Ceruloplasmin 31 , Alpha 1 Antitrypsin 218. ROSEMARIE negative, AMA pending, ASMA pending. LFTs trending down. Clinically he is stable. T. Bili 5.0, AST 842, ALT 1605, Alk Phosph 121. Okay to d/c home. However, will need repeat labs in 3 days and FU at [facility] in one week. No acetaminophen/etoh/OTC meds/herbal supplements- d/w patient. D/W patient Hep. B precautions. - Abnormal imaging of GB with mild wall thickening and pericholecystic fluid. Unclear if he has some chronic GB disease, as he reports that he has had intermittent abdominal pain with food intake for 1.5 years, or if this is related to his acute hepatitis. GS following. His current symptoms seem more consistent with acute hepatitis- malaise, fevers, n/v/d, abdominal pain, dark urine. - COPD per primary PLAN: - Okay to d/c home - Will fu pending labs - LFT in 3 days- D/W patient - FU [facility] 1 week - No ETOH, Acetaminophen, OTC meds, Herbal supplements- D/W patient - D/W Hepatitis B precautions - GI will sign off, please reconsult as needed - Pt seen and examined by Dr. Royal and myself and this note is written on his behalf (Dottie Zhao) Physician Comments patient was seen and examined, agree with above note, supportive care, FU as outpatient (Zak Royal MD) Dottie Zhao Apr 06, 2016 10:51 Zak Royal MD Apr 06, 2016 11:53
[2016-04-06 11:20] VITALS: BP 118/60; PULSE 61; RESP 18; TEMP 98.1; O2SAT 95
[2016-04-07 03:54] LABS: MITOCHONDRIAL ABS 46.7 U (())
[2016-04-08 10:20] LABS: HEP B DNA R1 42900000 IU/ml (0-19); HEP B DNA R2 7.63 (<1.30)
== END 2016-04-06 14:24 | disposition home or self-care (01) | DRG 443 ==
LOC: NEPE 13:32 → NEDA 20:27 → OBSVTOIN 20:27 → NEPGCP 23:29
PROVIDERS: ADMIT Internal Medicine; ATTEND Internal Medicine
DX: B16.9 Acute hepatitis B without delta-agent and without hepatic coma (principal); J44.9 Chronic obstructive pulmonary disease, unspecified; R31.9 Hematuria, unspecified; Z85.828 Personal history of other malignant neoplasm of skin; Z96.651 Presence of right artificial knee joint; F17.210 Nicotine dependence, cigarettes, uncomplicated; H91.92 Unspecified hearing loss, left ear; K21.9 Gastro-esophageal reflux disease without esophagitis; K82.9 Disease of gallbladder, unspecified; K57.30 Diverticulosis of large intestine without perforation or abscess without bleeding
CPT/HCPCS: 74177; 74181; 76377; 76705; 80048; 80053; 80074; 80076; 80307; 80329; 81001; 82103; 82105; 82140; 82390; 82550; 82728; 83520; 83540; 83550; 83690; 83735; 85025; 85610; 86038; 86256; 86704; 87350; 87517; 93005; 94640; 94664; 96361; 96374; 96375; 96376; G0480; J2270; J2405; J2543; J3480; J7030; Q9967

== ENCOUNTER 2016-04-16 21:33 | Inpatient (IN) | payer MEDICAID, OTHER ==
[~2016-04-16] VITALS: Ht 185.4 cm; Wt 71.3 kg
[~2016-04-16 21:33] MED LIST changes: +ALBU.5I NEB; -ALBU0.63 NEB; -ALBU8I INH; -DOXY100T PO; -MEDR4PAK3 PO; +VENTAER INH
[2016-04-16 21:35] VITALS: BP 149/72; PULSE 65; RESP 18; TEMP 97.5; O2SAT 98
[2016-04-16 21:44] VITALS: BP 139/68; PULSE 70; RESP 16; O2SAT 97
[2016-04-16] MEDS ORDERED: SODIUM CHLOR 0.9% 1000 ML INJ 1,000 ML IV ONE (22:00)
[2016-04-16] MEDS ORDERED: ONDANSETRON HCL 4 MG/2 ML VIAL IV ONE (22:00)
--- NOTE | 2016-04-16 22:24 | PD ---
HPI Chief Complaint: Abdominal Pain Time Seen by Provider: 21:54 Travel History International Travel<30 days: No Contact w/Intl Traveler<30days: No Traveled to known affect area: No History of Present Illness HPI The patient is a 56 year old male who presents to the [facility] emergency department with a history of abdominal pain that he reports began at the beginning of this year. He reports that the pain is mainly been focused in the left upper and left lower quadrant of the abdomen. He reports that he came to the emergency department at the beginning of March for evaluation of this and was diagnosed with cholecystitis. The patient reports that after further evaluation and admission he was noted to have hepatitis with very high liver enzymes. The patient's hepatitis testing came back positive for acute hepatitis B. 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 The patient reports that this is the only exposure that he could've had. He denies any sexual activity in the last 2 years. He also denies any IV drug use. He denies any history of blood transfusion. The patient reports that he was told that he will need to have his gallbladder out, however it was recommended that his liver enzymes improved before this is accomplished as an outpatient. He reports that he continues to have pain. He reports that he was not discharged on any pain medication as a told him not to take anything due to his liver disease. The patient reports that over the last 3 days the pain has become constant and waxes and wanes in severity from 4 out of 10-10 out of 10 in severity. The patient reports that his jaundice has not changed. He reports that the pains location continues to be in the left upper and left lower quadrant of the abdomen and is an aching sensation. The patient reports that he has nausea but no vomiting. He reports that he has had loose stools 3-4 times per day. He reports that his urine is very dark in his stool is light in color. The patient reports that he recently established with a new primary care physician, Dr. Mal Strickland. He reports that he's been trying to follow-up with a crew leader, however he has left multiple messages and they have not returned his call for an appointment. [facility] Past Medical History Narrative Medical The patient's past medical history is significant for COPD, history of hepatitis B Arthritis: Yes Asthma: No Blood Disorders: No Anxiety: Yes Depression: No Cancer: Yes (basal and squamous cell skin) Cardiac Catheterization: Yes (X2) Cardiovascular Problems: No High Cholesterol: No Chemotherapy: No COPD: Yes Diminished Hearing: Yes (LEFT EAR [place]) Endocrine: No Gastrointestinal Disorders: Yes (GASTRIC REFLUX, esophageal spasms) GERD: Yes Genitourinary: No Immune Disorder: No Musculoskeletal: Yes Neurologic: No Psychiatric: No Reproductive: Yes Respiratory: Yes (COPD) Radiation Therapy: No Sleep Apnea: No Tetanus Vaccination: < 5 Years Influenza Vaccination: No Past Surgical History Narrative Surgical The patient's past surgical history is significant for total knee replacement, right wrist ORIF, skin cancer resection. Neurologic Surgery: No Other Surgery: Yes (R knee, R wrist, R index finger.) Social History Alcohol Use: No (OCCASIONAL) Tobacco Use: Yes (1 PPD x 45 YEARS) Substance Use: No Allergies-Medications (Allergen,Severity, Reaction): Coded Allergies: No Known Allergies (Verified , 04/16/16) Reported Meds & Prescriptions Reported Meds & Active Scripts Active Reported Albuterol Neb (Albuterol Sulfate) 2.5 Mg/0.5 Ml Neb 2.5 Mg NEB Q4HR NEB PRN Note: The Albuterol Sulfate Inhalation Solution is concentrated and must be diluted. Read complete instructions carefully before using. Ventolin Hfa 18 GM Inh (Albuterol Sulfate) 90 Mcg/Act Aer 1 Puff INH BID PRN Review of Systems Except as stated in HPI: all other systems reviewed are Neg General / Constitutional: No: Fever Eyes: No: Visual changes HENT: No: Headaches Cardiovascular: No: Chest Pain or Discomfort Respiratory: No: Shortness of Breath Gastrointestinal: Positive: Nausea, Diarrhea, Abdominal Pain, Changes in Bowel Habits, Loss of Appetite, No: Vomiting, Hematemesis, Hematochezia, Constipation , Indigestion Genitourinary: No: Dysuria Musculoskeletal: No: Pain Skin: No Rash Neurologic: No: Weakness Psychiatric: No: Depression Endocrine: No: Polydipsia Hematologic/Lymphatic: No: Easy Bruising Physical Exam Narrative General: The patient is a well-developed well-nourished male in no acute distress. Head and Neck exam: Head is normocephalic atraumatic. Eyes: EOMI, pupils are equal round and reactive to light. The patient has scleral icterus noted on examination Nose: Midline septum with pink mucous membranes Mouth: Dentition unremarkable. Moist mucus membranes. Posterior oropharynx is not erythematous. No tonsillar hypertrophy. Uvula midline. Airway patent. Neck: No palpable lymphadenopathy. No nuchal rigidity. No thyromegaly. Cardiovascular: Regular rate and rhythm without murmurs, gallops, or rubs. Lungs: Clear to auscultation bilaterally. No wheezes, rhonchi, or rales. Abdomen: Soft, with tenderness on palpation in the left upper and left lower quadrant of the abdomen. No guarding, rebound, or rigidity. Normal bowel sounds are audible. No tenderness on palpation of McBurney's point. Negative Werner's sign. Extremities: No clubbing, cyanosis, or edema. 2+ pulses in all 4 extremities. Back: No spinous process tenderness to palpation. No costovertebral angle tenderness to palpation. Neurologic Exam: Grossly nonfocal. Skin Exam: No rash noted. Intact skin that is warm and dry. Jaundice is noted. Data Data Last Documented VS Vital Signs Date Time Temp Pulse Resp B/P Pulse Ox O2 Delivery O2 Flow Rate FiO2 04/16/16 21:44 70 16 139/68 97 Room Air 04/16/16 21:35 97.5 Orders Electrocardiogram (04/16/16 21:58) Complete Blood Count With Diff (04/16/16 21:58) Comprehensive Metabolic Panel (04/16/16 21:58) Prothrombin Time / Inr (Pt) (04/16/16 21:58) Act Partial Throm Time (Ptt) (04/16/16 21:58) C-Reactive Protein (Crp) (04/16/16 21:58) Lipase (04/16/16 21:58) Urinalysis - C+S If Indicated (04/16/16 21:58) Magnesium (Mg) (04/16/16 21:58) Alcohol (Ethanol) (04/16/16 21:58) Iv Access Insert/Monitor (04/16/16 21:58) Ecg Monitoring (04/16/16 21:58) Oximetry (04/16/16 21:58) Sodium Chlor 0.9% 1000 Ml Inj (Ns 1000 M (04/16/16 22:00) Ondansetron Inj (Zofran Inj) (04/16/16 22:00) Morphine Inj (Morphine Inj) (04/16/16 22:30) Oral Contrast - Adult (04/16/16 22:28) Diatrizoate Liq (Md Leonora Turk) (04/16/16 22:46) Ct Abd/Pel W Iv Contrast(Rout) (04/17/16 22:24) Admit Order (Ed Use Only) (04/17/16 00:19) Labs Laboratory Tests Test 04/16/16 04/17/16 21:45 00:00 White Blood Count 6.3 TH/MM3 Red Blood Count 4.73 MIL/MM3 Hemoglobin 13.9 GM/DL Hematocrit 41.8 % Mean Corpuscular Volume 88.4 FL Mean Corpuscular Hemoglobin 29.4 PG Mean Corpuscular Hemoglobin 33.2 % Concent Red Cell Distribution Width 17.2 % Platelet Count 203 TH/MM3 Mean Platelet Volume 9.2 FL Neutrophils (%) (Auto) % Lymphocytes (%) (Auto) % Monocytes (%) (Auto) % Eosinophils (%) (Auto) % Basophils (%) (Auto) % Neutrophils # (Auto) TH/MM3 Lymphocytes # (Auto) TH/MM3 Monocytes # (Auto) TH/MM3 Eosinophils # (Auto) TH/MM3 Basophils # (Auto) TH/MM3 CBC Comment AUTO DIFF Differential Total Cells 100 Counted Neutrophils % (Manual) 51 % Band Neutrophils % 1 % Lymphocytes % 39 % Monocytes % 6 % Eosinophils % 3 % Neutrophils # (Manual) 3.3 TH/MM3 Differential Comment FINAL DIFF MANUAL Platelet Estimate NORMAL Platelet Morphology Comment NORMAL Red Cell Morphology Comment NORMAL Prothrombin Time 12.5 SEC Prothromb Time International 1.1 RATIO Ratio Activated Partial 29.4 SEC Thromboplast Time Sodium Level 142 MEQ/L Potassium Level 3.7 MEQ/L Chloride Level 105 MEQ/L Carbon Dioxide Level 31.7 MEQ/L Anion Gap 5 MEQ/L Blood Urea Nitrogen 10 MG/DL Creatinine 0.94 MG/DL Estimat Glomerular Filtration 83 ML/MIN Rate Random Glucose 105 MG/DL Calcium Level 8.6 MG/DL Magnesium Level 2.0 MG/DL Total Bilirubin 9.9 MG/DL Aspartate Amino Transf 1013 U/L (AST/SGOT) Alanine Aminotransferase 2267 U/L (ALT/SGPT) Alkaline Phosphatase 150 U/L C-Reactive Protein 1.62 MG/DL Total Protein 6.6 GM/DL Albumin 3.0 GM/DL Lipase 188 U/L Ethyl Alcohol Level LESS THAN 3 MG/DL Urine Color DARK-YELLOW Urine Turbidity CLEAR Urine pH 5.5 Urine Specific [place] 1.012 Urine Protein NEG mg/dL Urine Glucose (UA) NEG mg/dL Urine Ketones NEG mg/dL Urine Occult Blood NEG Urine Nitrite NEG Urine Bilirubin MOD Urine Urobilinogen 4.0 MG/DL Urine Leukocyte Esterase NEG Urine WBC 1 /hpf Urine Mucus FEW /lpf Microscopic Urinalysis Comment CULT NOT INDICATED MDM Medical Decision Making Medical Screen Exam Complete: Yes Emergency Medical Condition: Yes Medical Record Reviewed: Yes Differential Diagnosis Diverticulitis, versus progression of hepatitis with increasing liver enzymes, versus peptic ulcer disease, versus pancreatitis, versus colitis Narrative Course During the course of the patients emergency department visit, the patients history, examination, and differential diagnosis were reviewed with the patient. The patient had IV access obtained and blood work sent for analysis. The patient was placed on a youth nutritional monitor with oximetry and blood pressure monitoring. A CT scan of the abdomen and pelvis has been ordered. The patient' s electronic medical record was reviewed. On evaluation previously the patient was noted to have liver enlargement and gallbladder wall thickening. The patient was noted to have diverticulosis without evidence of diverticulitis. The patient had an EKG done that shows a sinus bradycardia, heart rate of 54, no acute ST segment changes are noted. No ST segment elevation. T waves are inverted in V1. The patient was provided normal saline 1 L IV fluid bolus, Zofran 4 mg IV, morphine 4 mg IV. The patients laboratory studies were reviewed and remarkable for a white count of 6.3, hemoglobin 13.9, platelets 203 with 51 neutrophils, 1 band, and 39 lymphocytes. CMP is remarkable for a GFR of 83, total bilirubin is 9.9, AST 1013, ALT 2267, alkaline phosphatase 150, C-reactive protein 1.62, albumin 3.0, lipase 188. All of his liver enzymes of increased compared to previously. INR 1.1, urinalysis shows moderate bilirubin for urobilinogen, otherwise unremarkable. Alcohol level is less than 3. The patient was taken to CT scan. While in CT scan, the patient was injected with IV contrast. IV contrast extravasated in its entirety in the left arm. The patient was reexamined and noted to have erythema, edema to the antecubital fossa and lateral aspect of the left arm. The patient had soft compartments and no suggestion of compartment syndrome. The patient had a warm compress placed on the arm. The patient had his IV replaced and was taken back to CT scan for imaging. Radiology studies were reviewed and remarkable for a CT scan of the abdomen and pelvis that shows interval development of a low volume ascites, otherwise stable exam appearance. The patients results were discussed with the patient, including the plan of care. I explained that further testing and/ or monitoring is indicated based on the patients history, examination, and/ or laboratory findings. Therefore, I recommended admission for additional evaluation. The patient expressed understanding and was agreeable with this plan. The patient was admitted to the hospital in guarded condition and sent to a bed under the care of the [facility]. Physician Communication Physician Communication The patient's case was discussed with Rangel Lei who did agree to admit the patient to Dr. Strickland's service. Diagnosis Primary Impression: Acute hepatitis B Additional Impressions: Jaundice Abdominal pain Qualified Code: R10.9 - Abdominal pain, unspecified location Admitting Information Admitting Physician Requests: Ivanna Powell MD Apr 16, 2016 22:24
[2016-04-16] MEDS ORDERED: MORPHINE SULFATE 4 MG/ML INJ IV PUSH ONE (22:30)
[2016-04-16 22:33] LABS: HEMATOCRIT 41.8 % (39.0-51.0); MEAN CELL VOLUME 88.4 FL (80.0-100.0); MEAN CORPUSCULAR HEMOGLOBIN 29.4 PG (27.0-34.0); MEAN CORPUSCULAR HGB CONC 33.2 % (32.0-36.0); PLATELET COUNT 203 TH/MM3 (150-450); RED BLOOD COUNT 4.73 MIL/MM3 (4.50-5.90); RED CELL DISTRIBUTION WIDTH 17.2 % (11.6-17.2); WHITE BLOOD COUNT 6.3 TH/MM3 (4.0-11.0)
[2016-04-16 22:41] LABS: HEMO FLAGS AUTO DIFF
[2016-04-16] MEDS ORDERED: DIATRIZOATE MEGLUM/DIATRIZOATE SOD 9 ML CUP ONE (22:46)
[2016-04-16 22:50] LABS: APTT (PATIENT) 29.4 SEC (24.3-30.1); INTERNATIONAL NORMALIZED RATIO 1.1 RATIO; PROTHROMBIN TIME - PATIENT 12.5 SEC (9.8-11.6)
[2016-04-16 22:52] LABS: ANION GAP 5 MEQ/L (5-15); BICARBONATE 31.7 MEQ/L (21.0-32.0); BLOOD UREA NITROGEN 10 MG/DL (7-18); CHLORIDE 105 MEQ/L (98-107); GLOMERULAR FILTRATION RATE 83 ML/MIN (>89); POTASSIUM 3.7 MEQ/L (3.5-5.1); SODIUM (NA) 142 MEQ/L (136-145)
[2016-04-16 23:00] LABS: ALKALINE PHOSPHATASE 150 U/L (45-117); ALT (GPT) 2267 U/L (12-78); AST (GOT) 1013 U/L (15-37)
[2016-04-16 23:01] LABS: BANDS 1 % (0-6); EOSINOPHILS 3 % (0-4); NEUTROPHIL # MANUAL DIFF 3.3 TH/MM3 (1.8-7.7); POLYS (SEG NEUTROPHILS) 51 % (16-70); TOTAL BILIRUBIN ADULT 9.9 MG/DL (0.2-1.0); WBC DIFF SAMPLE 100
[2016-04-16 23:02] LABS: PLATELET ESTIMATE SMEAR NORMAL (NORMAL); PLATELET MORPHOLOGY NORMAL (NORMAL); SCAN/DIFF FINAL DIFF MANUAL
[2016-04-17] VITALS (9 sets, daily range): BP systolic 106–135; BP diastolic 56–78; PULSE 45–70; RESP 16–18; TEMP 96.1–97.4; O2SAT 95–99
[2016-04-17] MEDS ORDERED: NALOXONE HCL 0.4 MG/ML AMP IV PRN (00:45)
[2016-04-17] MEDS ORDERED: MORPHINE SULFATE 4 MG/ML INJ IV PUSH PRN (00:45)
[2016-04-17] MEDS ORDERED: ONDANSETRON HCL 4 MG/2 ML VIAL IVP PRN (00:45)
[2016-04-17] MEDS ORDERED: SENNOSIDES 8.6 MG TAB PO PRN (00:45)
[2016-04-17] MEDS ORDERED: SODIUM CHLORIDE 0.9% FLUSH 5 ML FLUSH FLUSH PRN (00:45)
[2016-04-17 00:46] LABS: BLOOD, URINE NEG (NEG); COMMENT (UR) CULT NOT INDICATED; CULTURE IF INDICATED CULT NOT INDICATED; GLUCOSE,URINE NEG (NEG); KETONE, URINE NEG (NEG); MUCUS URINE FEW /lpf (OCC); NITRITE,URINE NEG (NEG); PH, URINE 5.5 (5.0-8.5); URINE COLOR DARK-YELLOW (YELLW/STRAW)
[2016-04-17] MEDS ORDERED: IOHEXOL 350 MG/ML 10 ML VIAL (for RAD DIAG) IV ONE (00:53)
--- NOTE | 2016-04-17 01:06 | RADRPT ---
EXAM DATE/TIME: 04/17/2016 00:00 [place] COMPARISON: MRCP W/O CONTRAST, April 02, 2016, 9:50. US ABDOMEN - GALLBLADDER, April 01, 2016, 17:02. CT AB DOMEN & PELVIS W CONTRAST, April 01, 2016, 15:24. INDICATIONS : Diffuse abdominal pain. IV CONTRAST: 70 cc Omnipaque 350 (iohexol) IV ORAL CONTRAST: Prescribed oral contrast ingested. RADIATION DOSE: 9.96 CTDIvol (mGy) MEDICAL HISTORY : Chronic obstructive pulmonary disease. Gastroesophageal reflux disease. skin cancer SURGICAL HISTORY : None. ENCOUNTER: Initial ACUITY: 1 day PAIN SCALE: 10/10 LOCATION: abdomen TECHNIQUE: Volumetric scanning of the abdomen and pelvis was performed. Using automated exposure control and ad justment of the mA and/or kV according to patient size, radiation dose was kept as low as reasonably achievable to obtain optimal diagnostic quality images. FINDINGS: LOWER LUNGS: The visualized lower lungs are clear. LIVER: Homogeneous density without lesion. There is no dilation of the biliary tree. Gallbladder is again n otable for mild nonspecific wall thickening. SPLEEN: Normal size without lesion. PANCREAS: Within normal limits. KIDNEYS: Normal in size and shape. There is no mass, stone or hydronephrosis. ADRENAL GLANDS: Within normal limits. VASCULAR: There is no aortic aneurysm. BOWEL/MESENTERY: Bowel structures are nondilated throughout. There is some colonic diverticula, however no specific CT findings of diverticulitis. There is small volume of ascites now present some free fluid in the uppe r abdomen adjacent to liver and spleen and some in the dependent pelvis. No evidence of pneumoperiton eum. ABDOMINAL WALL: Within normal limits. RETROPERITONEUM: There is no lymphadenopathy. BLADDER: No wall thickening or mass. REPRODUCTIVE: Within normal limits. INGUINAL: There is no lymphadenopathy or hernia. MUSCULOSKELETAL: Within normal limits for patient age. CONCLUSION: Interval development of low volume ascites. Otherwise stable exam appearance Rangel Adames MD on April 17, 2016 at 0:56 Board Certified Radiologist. This report was verified electronically.
[2016-04-17] MEDS: MORPHINE SULFATE 4 MG/ML INJ IV PRN ×3 (04:46→19:41)
--- NOTE | 2016-04-17 08:38 | PD.CONS ---
HPI History of Present Illness This is a 56 year old male patient who was recently hospitalized for acute hepatitis B, elevated liver function tests from 04/01/16-04/06/16. His workup revealed Acetaminophen level < 2.0. Hepatitis Bs Ag (+), Hepatitis B Core IgM Ab (+). Hep Be Ag (+), Hepatitis B DNA PCR 42,900,000. Iron saturation 62%, AFP 3.2, Ceruloplasmin 31, Alpha 1 Antitrypsin 218. ROSEMARIE negative, AMA 46.7, ASMA negative. He was also noted to have some mild gallbladder wall thickening and pericholecystic fluid and had complained of some chronic intermittent abdominal pain wit food intake x 1.5 years. He was evaluated with MRCP (04/02/16) ------> 1. No evidence of gallstones in the gallbladder. However, there is some thickening of the gallbladder wall with some fluid around the gallbladder. He was evaluated by [facility] and they recommended follow up after his acute hepatitis had resolved. He was discharged on 04/06/16 with instructions to avoid ETOH, Acetaminophen, OTC meds, Herbal supplements and instructions for repeat labs and follow up. His LFTs on 04/06/16 were T. Bili 5.0, AST 842, ALT 1605, Alk Phosph 121. He reports that he went home and did not take any alcohol or any medications- OTC or herbal supplements. He states that he continued to have epigastric pain described as a sharp pain that goes straight through to his back. He has some associated nausea at times, but no vomiting. He states that this is not related to food intake at all and that he has been tolerating his diet, although he does have decreased appetite. He states the pain is constant and has progressively been getting worse to the point that it is now a constant "5" on scale 0-10. He has had some loose stool, but denies diarrhea. He reports that he has continued to have jaundice and generalized fatigue, but no fevers or chills. He reports that his urine is getting darker and his stool is getting children's nursery assistant. He states that he has called the GI office 10-12 times, but has not been able to get through and has left messages but has not had anyone return his call. He recently became established with Dr. Strickland and had labs done on Friday. He states that he came to the ER for worsening of symptoms. (Dottie Zhao) PFSH Past Medical History Recent acute hepatitis B Possible chronic cholecystitis Recurrent abdominal pain x 1.5 years COPD Past Surgical History Total knee replacement right Right wrist surgery Skin cancer squamous removal (Dottie Zhao) Coded Allergies: No Known Allergies (Verified , 04/16/16) Medications Allergies Coded Allergies Type Severity Reaction Last Updated Verified No Known Allergies 04/16/16 Yes Active Scripts Medications Dose Route/Sig Days Date Category Dose Instructions Albuterol Neb (Albuterol Sulfate) 2.5 Mg/0.5 Ml Neb 2.5 Mg NEB Q4HR NEB PRN 04/01/16 Reported Note: The Albuterol Sulfate Inhalation Solution is concentrated and must be diluted. Read complete instructions carefully before using. Ventolin Hfa 18 GM Inh (Albuterol Sulfate) 90 Mcg/Act Aer 1 Puff INH BID PRN 04/01/16 Reported Family History Mom from ovarian cancer Dad , had Parkinson's Social History Smokes 1 PPD No ETOH No illicit drug use (Dottie Zhao) Review of Systems Constitutional: COMPLAINS OF: Fatigue, Change in appetite, DENIES: Fever, Weight loss, Chills Respiratory: DENIES: Cough, Shortness of breath Cardiovascular: DENIES: Chest pain Gastrointestinal: COMPLAINS OF: Abdominal pain, Nausea, Anorexia, DENIES: Black stools, Bloody stools, Constipation (loose stools, [place] colored), Vomiting , Swelling of Abdomen, Heartburn, Hematemesis Musculoskeletal: COMPLAINS OF: Back pain Integumentary: COMPLAINS OF: Abnormal pigmentation, Jaundice Hematologic/lymphatic: DENIES: Bruising Neurologic: DENIES: Headache Psychiatric: DENIES: Confusion (Dottie Zhao) GI Exam Vitals I&O Vital Signs Date Time Temp Pulse Resp B/P Pulse Ox O2 Delivery O2 Flow Rate FiO2 04/17/16 05:02 96.6 48 18 135/71 98 04/17/16 02:00 50 16 126/60 96 Room Air 04/17/16 01:27 97 04/17/16 00:30 70 16 128/78 98 Room Air 04/16/16 21:44 70 16 139/68 97 Room Air 04/16/16 21:35 97.5 65 18 149/72 98 I/O 04/16/16 04/16/16 04/16/16 04/17/16 04/17/16 04/17/16 07:00 15:00 23:00 07:00 15:00 23:00 Intake Total 240 ml Balance 240 ml Intake Oral 240 ml # Voids 1 Imaging Last Impressions Abdomen/Pelvis CT 04/17/16 2224 Signed Impressions: Service Date/Time: Sunday, April 17, 2016 00:00 - CONCLUSION: Interval development of low volume ascites. Otherwise stable exam appearance Rangel Adames MD Laboratory Test 04/16/16 04/17/16 21:45 00:00 White Blood Count 6.3 TH/MM3 Red Blood Count 4.73 MIL/MM3 Hemoglobin 13.9 GM/DL Hematocrit 41.8 % Mean Corpuscular Volume 88.4 FL Mean Corpuscular Hemoglobin 29.4 PG Mean Corpuscular Hemoglobin 33.2 % Concent Red Cell Distribution Width 17.2 % Platelet Count 203 TH/MM3 Mean Platelet Volume 9.2 FL Neutrophils (%) (Auto) % Lymphocytes (%) (Auto) % Monocytes (%) (Auto) % Eosinophils (%) (Auto) % Basophils (%) (Auto) % Neutrophils # (Auto) TH/MM3 Lymphocytes # (Auto) TH/MM3 Monocytes # (Auto) TH/MM3 Eosinophils # (Auto) TH/MM3 Basophils # (Auto) TH/MM3 CBC Comment AUTO DIFF Differential Total Cells 100 Counted Neutrophils % (Manual) 51 % Band Neutrophils % 1 % Lymphocytes % 39 % Monocytes % 6 % Eosinophils % 3 % Neutrophils # (Manual) 3.3 TH/MM3 Differential Comment FINAL DIFF MANUAL Platelet Estimate NORMAL Platelet Morphology Comment NORMAL Red Cell Morphology Comment NORMAL Prothrombin Time 12.5 SEC Prothromb Time International 1.1 RATIO Ratio Activated Partial 29.4 SEC Thromboplast Time Sodium Level 142 MEQ/L Potassium Level 3.7 MEQ/L Chloride Level 105 MEQ/L Carbon Dioxide Level 31.7 MEQ/L Anion Gap 5 MEQ/L Blood Urea Nitrogen 10 MG/DL Creatinine 0.94 MG/DL Estimat Glomerular Filtration 83 ML/MIN Rate Random Glucose 105 MG/DL Calcium Level 8.6 MG/DL Magnesium Level 2.0 MG/DL Total Bilirubin 9.9 MG/DL Aspartate Amino Transf 1013 U/L (AST/SGOT) Alanine Aminotransferase 2267 U/L (ALT/SGPT) Alkaline Phosphatase 150 U/L C-Reactive Protein 1.62 MG/DL Total Protein 6.6 GM/DL Albumin 3.0 GM/DL Lipase 188 U/L Ethyl Alcohol Level LESS THAN 3 MG/DL Urine Color DARK-YELLOW Urine Turbidity CLEAR Urine pH 5.5 Urine Specific [place] 1.012 Urine Protein NEG mg/dL Urine Glucose (UA) NEG mg/dL Urine Ketones NEG mg/dL Urine Occult Blood NEG Urine Nitrite NEG Urine Bilirubin MOD Urine Urobilinogen 4.0 MG/DL Urine Leukocyte Esterase NEG Urine WBC 1 /hpf Urine Mucus FEW /lpf Microscopic Urinalysis Comment CULT NOT INDICATED Physical Examination HEENT: Normocephalic; atraumatic; + jaundice. Throat is clear. NECK: Neck is supple, no JVD, no lymphadenopathy. CHEST: CTA CARDIAC: RRR ABDOMEN: Soft, nondistended, moderate epigastric tenderness; hepatosplenomegaly; bowel sounds are present in all four quadrants. EXTREMITIES: No clubbing, cyanosis, or edema. SKIN: Normal; no rash; + jaundice. 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 (Dottie Zhao) Assessment and Plan Plan ASSESSMENT: - Acute hepatitis B infection with worsening LFTs. He was hospitalized from 04/01-04/06/16. His workup revealed Acetaminophen level < 2.0. Hepatitis Bs Ag (+), Hepatitis B Core IgM Ab (+). Hep Be Ag (+), Hepatitis B DNA PCR 42,900,000. Iron saturation 62%, AFP 3.2, Ceruloplasmin 31, Alpha 1 Antitrypsin 218. ROSEMARIE negative, AMA 46.7, ASMA negative. He was also noted to have some mild gallbladder wall thickening and pericholecystic fluid and had complained of some chronic intermittent abdominal pain wit food intake x 1.5 years. MRCP (04/02/16)------> 1. No evidence of gallstones in the gallbladder. However, there is some thickening of the gallbladder wall with some fluid around the gallbladder. He was evaluated by [facility] and they recommended follow up after his acute hepatitis had resolved. He was discharged on 04/06/16 with instructions to avoid ETOH, Acetaminophen, OTC meds , Herbal supplements and instructions for repeat labs and follow up. His LFTs on 04/06/16 were T. Bili 5.0, AST 842, ALT 1605, Alk Phosph 121. He reports that he went home and did not take any alcohol or any medications- OTC or herbal supplements. He returns to ER with ongoing worsening abdominal pain. LFT 9.9, 1013, ALT 2267, Alk Phosph 150. PT 12.5, INR 1.1. Ethyl alcohol less than 3. - Abdominal pain. Found to have mild gallbladder wall thickening and pericholecystic fluid on MRCP during last hospitalization. He does report that he has had ongoing intermittent abdominal pain x 1.5 years, but insists this is not related to food. He was evaluated by Dr. Richardson and it was recommended that he follow up after his hepatitis b resolves for consideration of elective cholecystectomy. CT Scan abdomen/pelvis with IV contrast (04/17/16)-----> Interval development of low volume ascites, otherwise stable exam appearance. - Elevated AMA 46.7. PLAN: - Clear liquids - Toxicology screen - CMP, PT/INR today and in am - Avoid hepatotoxic medications - Supportive care - Further recommendations to follow based on results of above - Pt seen and examined by Dr. Keen and myself and this note is written on his behalf (Dottie Zhao) Physician Comments Seen and examined, start baraclude at 0.5mg daily. Toxicology screen and immunologies ordered. If Lfts continue to increase may need a liver biospy. thank you (Leila Keen MD) Dottie Zhao Apr 17, 2016 08:38 Leila Keen MD Apr 17, 2016 11:58
[2016-04-17] MEDS: SODIUM CHLORIDE 0.9% FLUSH 5 ML FLUSH FLUSH SCH ×2 (09:00→19:40)
[2016-04-17] MEDS: FAMOTIDINE 20 MG TAB PO SCH ×2 (09:52→19:42)
[2016-04-17] MEDS: HEPARIN SODIUM - SQ 10,000 UNITS/ML VIAL SQ SCH ×2 (09:53→19:42)
[2016-04-17 10:02] LABS: AMPHETAMINE, URINE NEG (NEG); BARBITURATES, URINE NEG (NEG); COCAINE, URINE NEG (NEG)
[2016-04-17 11:30] LABS: ANION GAP 9 MEQ/L (5-15); AST (GOT) 872 U/L (15-37); BLOOD UREA NITROGEN 8 MG/DL (7-18); CHLORIDE 106 MEQ/L (98-107); GLOMERULAR FILTRATION RATE 101 ML/MIN (>89); POTASSIUM 4.4 MEQ/L (3.5-5.1); SODIUM (NA) 142 MEQ/L (136-145)
[2016-04-17 11:32] LABS: ALKALINE PHOSPHATASE 116 U/L (45-117); TOTAL BILIRUBIN ADULT 8.6 MG/DL (0.2-1.0)
[2016-04-17 11:43] LABS: ALT (GPT) 1867 U/L (12-78)
--- NOTE | 2016-04-17 14:57 | MH ---
cc: MAL MAJOR MD DATE OF ADMISSION: 04/17/2016 CHIEF COMPLAINT Abdominal pain. 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 The pain is mainly focused in the left upper quadrant and left lower quadrant of the abdomen and reportedly getting worse. He was diagnosed with cholecystitis. The patient reports that after further evaluation and admission was noted to have hepatitis with very high liver enzymes. The patient's hepatitis testing came back positive for acute hepatitis B. 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 The patient reports that he was told he needs to have his gallbladder removed and he was advised to do as an outpatient, but he continued to have pain and he came to the hospital. His pain was about 10/10, now it is 3-4/10. He reported that his jaundice has not changed. He has nausea but no vomiting. He had about 3-4 mild loose stools but not watery and urine is dark. He trying to follow with a secure software assessor. Other than that nothing significant. PAST MEDICAL/SURGICAL HISTORY As dictated above. SOCIAL HISTORY He smoked one pack a day for more than 45 years. Occasionally drinks alcohol. Denies any drug abuse. Lives at home alone. 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 FAMILY HISTORY Mother of ovarian cancer. Father had Parkinson's disease. ALLERGIES No known drug allergies. MEDICATIONS 1. Albuterol/Atrovent 2.5/0.5 q.6h. 2. Ventolin HFA, one puff inhalation twice a day. REVIEW OF SYSTEMS Positive for abdominal pain. All other review of systems is negative. PHYSICAL EXAMINATION GENERAL: This is a 56-year-old male lying on the bed, not in acute distress. VITAL SIGNS: Temperature 96.7, heart rate 47, respirations 16, blood pressure 111/64, O2 saturation 96. HEENT: Normocephalic, atraumatic. EOMI. PERRL. Oral mucosa moist. NECK: Supple. No visible thyromegaly or neck mass. Trachea central. CARDIOVASCULAR: Regular rate and rhythm. LUNGS: Respirations clear to auscultation bilaterally. ABDOMEN: Diffuse tenderness mild. Bowel sounds audible. EXTREMITIES: No cyanosis or clubbing. Full range of motion of all extremities. NEUROLOGIC: Awake, alert, oriented x4. No focal deficits. SKIN: Warm and dry. PSYCHIATRIC: The patient is cooperative. Mood and affect are normal. LABORATORY DATA CBC is totally unremarkable. CMP is unremarkable except for total bilirubin is high at 9.9, AST 1013 high, ALT 2267 high, alkaline phosphatase 150, C-reactive protein high at 1.62, total protein low at 5.9, albumin low at 2.6, lipase 188. PT 12.5, INR 1.1, APTT 29.4. Urine drug screen negative. Urinalysis shows moderate bilirubin, 4 urobilinogen, few mucus cells. Culture not indicated. IMAGING DATA CT abdomen and pelvis was done and shows interval development of low volume ascites, otherwise stable exam. ASSESSMENT AND PLAN ASSESSMENT/PLAN This is a 56-year-old male who came to the ER diagnosed with: 1. Acute hepatitis B infection with worsening LFTs. He was hospitalized from 04/01/2016 to 04/06/2016. He has mild gallbladder wall thickening with pericholecystic fluid and complaining of some chronic intermittent abdominal pain with food intake. An MRCP was done and shows no evidence of gallstone in the gallbladder; however, there is some thickening of the gallbladder wall with some fluid around the gallbladder. He was evaluated by the general surgeon and recommended follow-up after his acute hepatitis has resolved. He was discharged on 04/06/2016. GI saw the patient. He had worsening of the abdominal pain and came to the ER. 2. Abdominal pain with thickening of the gallbladder wall and pericholecystic fluid on MRCP. The patient needs a cholecystectomy after hepatitis is resolved. A recent CT of the abdomen done yesterday shows interval development of low volume ascites. The patient is on a clear liquid diet. Supportive care. 3. History of COPD. Continue home medication. 4. History of smoking. Advised to quit. Nicotine patch. 5. History of GERD. The patient is on Protonix 40 mg p.o. daily. 6. History of arthritis. 7. History of anxiety. 8. History of hearing loss, left ear. The patient is using a hearing aid. 9. History of basal and squamous cell cancer. 10. DVT prophylaxis. Heparin 5000 units subcutaneous twice a day. 11. GI prophylaxis. Famotidine 20 mg q.12h. We are going to manage the patient on a daily basis and make recommendations on a daily basis. Mal Major MD EA/ROBERT /2:17 PM /2:37 PM
[2016-04-17 17:41] LABS: INTERNATIONAL NORMALIZED RATIO 1.1 RATIO; PROTHROMBIN TIME - PATIENT 12.1 SEC (9.8-11.6)
--- NOTE | 2016-04-17 18:59 | RADRPT ---
EXAM DATE/TIME: 04/17/2016 17:30 [place] COMPARISON: No previous studies available for comparison. INDICATIONS : Jaundice. MEDICAL HISTORY : Chronic obstructive pulmonary disease. Gastroesophageal reflux disease. Arthritis. Basal and squamous cell skin cancer. Esophageal spasms. Abdominal pain. Jaundice. Anxiety. SURGICAL HISTORY : Cardiac cath x2. Vasectomy. Orthopedic surgery; right knee, right wrist and right index finger. ENCOUNTER: Subsequent ACUITY: 3 weeks PAIN SCORE: 5/10 LOCATION: Bilateral upper quadrant MEASUREMENTS: LIVER: 17.2 cm length COMMON DUCT: 4 mm RIGHT KIDNEY: 10.3 x 4.6 x 5.0 cm SPLEEN: 12.0 cm length FINDINGS: LIVER: Slightly heterogeneous without focal lesion or ductal dilatation. Hepatopedal flow. COMMON DUCT: No intraluminal mass or stone visualized. GALLBLADDER: Contains no stones, demonstrates wall thickening and minimal pericholecystic fluid. PANCREAS: Not well seen due to overlying bowel gas. RIGHT KIDNEY: No hydronephrosis, stone or mass. Right kidney is slightly echogenic. SPLEEN: No focal lesion. CONCLUSION: 1. There is some gallbladder wall thickening and minimal pericholecystic fluid. 2. Liver is slightly heterogeneous. 3. HIDA scan may be beneficial. Jesus Ramos MD on April 17, 2016 at 18:54 Board Certified Radiologist. This report was verified electronically.
--- NOTE | 2016-04-17 20:05 | EKG ---
Date Performed: 04/16/2016 Time Performed: 22:43:20 PTAGE: 56 years EKG: SINUS BRADYCARDIA BORDERLINE ECG PREVIOUS TRACING : 04/01/2016 15.54 Compared to prior tracing no significant change DOCTOR: Jaqueline Valles Interpretating Date/Time 04/17/2016 20:02:58
[2016-04-18 04:00] VITALS: BP 109/58; PULSE 60; RESP 16; TEMP 96.3; O2SAT 96
[2016-04-18 05:45] LABS: AUTOMATED NEUTROPHIL # 2.2 TH/MM3 (1.8-7.7); EOSINOPHIL # 0.2 TH/MM3 (0-0.4); HEMO FLAGS DIFF FINAL; LYMPH % 27.9 % (9.0-44.0); LYMPHOCYTE # 1.1 TH/MM3 (1.0-4.8); MEAN CELL VOLUME 87.2 FL (80.0-100.0); MEAN CORPUSCULAR HEMOGLOBIN 29.9 PG (27.0-34.0); MEAN CORPUSCULAR HGB CONC 34.3 % (32.0-36.0); NEUT % 54.1 % (16.0-70.0); PLATELET COUNT 150 TH/MM3 (150-450); RED BLOOD COUNT 4.12 MIL/MM3 (4.50-5.90); RED CELL DISTRIBUTION WIDTH 16.6 % (11.6-17.2)
[2016-04-18 05:47] LABS: INTERNATIONAL NORMALIZED RATIO 1.1 RATIO; PROTHROMBIN TIME - PATIENT 12.4 SEC (9.8-11.6)
[2016-04-18] MEDS: ENTECAVIR 0.5 MG TAB PO SCH (05:56)
[2016-04-18 06:19] LABS: INDIRECT BILIRUBIN 1.7 MG/DL (0.0-0.8); TOTAL BILIRUBIN ADULT 8.2 MG/DL (0.2-1.0)
[2016-04-18 08:00] VITALS: BP 101/57; PULSE 51; RESP 16; TEMP 96.6; O2SAT 97
--- NOTE | 2016-04-18 08:16 | HHI.PR ---
Subjective History of Present Illness Patient wants to take shower and he is resting in bed still with diffused abdominal pain more in the lower area. No nausea, no vomiting. He is jaundice and reports pale color stools and dark urine Review of Systems Constitutional Constitutional: Fatigue, Weakness GI/Abdomen GI/Abdominal Exam: Abdominal Pain GI/Abdomen Remarks jandice Vitals/Results Intake & Output 04/17/16 04/17/16 04/18/16 15:00 23:00 07:00 Intake Total 240 ml 600 ml 360 ml Balance 240 ml 600 ml 360 ml Intake Oral 240 ml 600 ml 360 ml # Voids 3 2 1 # Bowel Movements 0 Vital Signs Vital Signs Date Time Temp Pulse Resp B/P Pulse Ox O2 Delivery O2 Flow Rate FiO2 04/18/16 04:00 96.3 60 16 109/58 96 04/17/16 23:30 97.0 58 16 106/57 95 04/17/16 21:23 21 04/17/16 19:45 97.4 68 18 120/65 96 04/17/16 16:00 96.1 53 18 115/56 99 04/17/16 12:00 96.7 47 16 111/64 96 CBC/BMP: 04/18/16 0514 04/17/16 1058 Lab Results Laboratory Tests Test 04/17/16 04/17/16 04/18/16 10:58 17:25 05:14 Sodium Level 142 MEQ/L Potassium Level 4.4 MEQ/L Chloride Level 106 MEQ/L Carbon Dioxide Level 27.0 MEQ/L Anion Gap 9 MEQ/L Blood Urea Nitrogen 8 MG/DL Creatinine 0.79 MG/DL Estimat Glomerular Filtration 101 ML/MIN Rate Random Glucose 68 MG/DL Calcium Level 8.0 MG/DL Total Bilirubin 8.6 MG/DL 8.2 MG/DL Aspartate Amino Transf 872 U/L 630 U/L (AST/SGOT) Alanine Aminotransferase 1867 U/L 1500 U/L (ALT/SGPT) Alkaline Phosphatase 116 U/L 98 U/L Total Protein 5.9 GM/DL 5.3 GM/DL Albumin 2.6 GM/DL 2.3 GM/DL Prothrombin Time 12.1 SEC 12.4 SEC Prothromb Time International 1.1 RATIO 1.1 RATIO Ratio White Blood Count 4.0 TH/MM3 Red Blood Count 4.12 MIL/MM3 Hemoglobin 12.3 GM/DL Hematocrit 36.0 % Mean Corpuscular Volume 87.2 FL Mean Corpuscular Hemoglobin 29.9 PG Mean Corpuscular Hemoglobin 34.3 % Concent Red Cell Distribution Width 16.6 % Platelet Count 150 TH/MM3 Mean Platelet Volume 8.7 FL Neutrophils (%) (Auto) 54.1 % Lymphocytes (%) (Auto) 27.9 % Monocytes (%) (Auto) 12.0 % Eosinophils (%) (Auto) 5.0 % Basophils (%) (Auto) 1.0 % Neutrophils # (Auto) 2.2 TH/MM3 Lymphocytes # (Auto) 1.1 TH/MM3 Monocytes # (Auto) 0.5 TH/MM3 Eosinophils # (Auto) 0.2 TH/MM3 Basophils # (Auto) 0.0 TH/MM3 CBC Comment DIFF FINAL Differential Comment Direct Bilirubin 6.5 MG/DL Indirect Bilirubin 1.7 MG/DL Physical Exam General General Appearance: No Acute Distress, Comfortable Eyes Eye Exam: Pupils Equal, Pupils Reactive, Sclera White, Extraocular Movement Intact Throat Throat Exam: Oral Mucosa [place] & Moist, Oral Pharynx Normal Neck Neck Exam: Neck Supple, Trachea Midline Pulmonary Resp Exam: Clear Bilaterally, Breath Sounds Equal, No Distress Cardiology CV Exam: Regular, Normal Sinus Rhythm Gastrointestinal/Abdomen GI Exam: Soft, Non-Tender, Bowel Sounds Present Musculoskeletal MS Exam: Normal Tone Integumentary Skin Exam: Clear, Warm, Dry, Intact Extremeties Extremities Exam: No Edema, Pedal Pulses Palpable Neurologic Neuro Exam: Alert, Awake, Oriented, Speech Clear, Moving All Extremities, No Focal Deficits Psychiatric Psych Exam: Appropriate Responses VTE Prophylaxis VTE Prophylaxis Meds: Heparin Assessment/Plan Assessment/Plan ASSESSMENT/PLAN This is a 56-year-old male who came to the ER diagnosed with: 1. Acute hepatitis B infection with worsening LFTs. He has mild gallbladder wall thickening with pericholecystic fluid and complaining of some chronic intermittent abdominal pain with food intake. An MRCP was done and shows no evidence of gallstone in the gallbladder; however, there is some thickening of the gallbladder wall with some fluid around the gallbladder. He was evaluated by the general surgeon and recommended follow-up after his acute hepatitis has resolved. GI saw the patient. LFTs getting better. 2. Abdominal pain with thickening of the gallbladder wall and pericholecystic fluid on MRCP. The patient needs a cholecystectomy after hepatitis is resolved. A recent CT of the abdomen done shows interval development of low volume ascites. The patient is on regular diet. Supportive care. 3. History of COPD. Continue home medication. 4. History of smoking. Advised to quit. Nicotine patch. 5. History of GERD. The patient is on Protonix 40 mg p.o. daily. 6. History of arthritis. 7. History of anxiety. 8. History of hearing loss, left ear. The patient is using a hearing aid. 9. History of basal and squamous cell cancer. 10. DVT prophylaxis. Heparin 5000 units subcutaneous twice a day. 11. GI prophylaxis. Famotidine 20 mg q.12h. Check CBC with diff CMP in AM. We are going to manage the patient on a daily basis and make recommendations on a daily basis. Discussed Condition with: Patient Mal Strickland MD Apr 18, 2016 08:16
[2016-04-18] MEDS: HEPARIN SODIUM - SQ 10,000 UNITS/ML VIAL SQ SCH ×2 (09:51→19:56)
[2016-04-18] MEDS: FAMOTIDINE 20 MG TAB PO SCH ×2 (09:51→19:56)
[2016-04-18] MEDS: SODIUM CHLORIDE 0.9% FLUSH 5 ML FLUSH FLUSH SCH ×2 (09:52→19:56)
[2016-04-18 12:00] VITALS: BP 110/58; PULSE 56; RESP 16; TEMP 96.7; O2SAT 98
--- NOTE | 2016-04-18 13:03 | HHI.GIFU ---
Subjective Remarks Patient is resting in bed still with diffused abdominal pain more in the lower area. No nausea, no vomiting. He is jaundice and reports pale color stools and dark urine. (Lucio Ryan) Objective Vitals I&O Vital Signs Date Time Temp Pulse Resp B/P Pulse Ox O2 Delivery O2 Flow Rate FiO2 04/18/16 12:00 96.7 56 16 110/58 98 04/18/16 08:00 96.6 51 16 101/57 97 04/18/16 04:00 96.3 60 16 109/58 96 04/17/16 23:30 97.0 58 16 106/57 95 04/17/16 21:23 21 04/17/16 19:45 97.4 68 18 120/65 96 04/17/16 16:00 96.1 53 18 115/56 99 I/O 04/17/16 04/17/16 04/17/16 04/18/16 04/18/16 04/18/16 07:00 15:00 23:00 07:00 15:00 23:00 Intake Total 240 ml 240 ml 600 ml 360 ml Balance 240 ml 240 ml 600 ml 360 ml Intake Oral 240 ml 240 ml 600 ml 360 ml # Voids 1 3 2 1 # Bowel Movements 0 Laboratory Laboratory Tests Test 04/17/16 04/18/16 17:25 05:14 Prothrombin Time 12.1 12.4 Prothromb Time International 1.1 1.1 Ratio White Blood Count 4.0 Red Blood Count 4.12 Hemoglobin 12.3 Hematocrit 36.0 Mean Corpuscular Volume 87.2 Mean Corpuscular Hemoglobin 29.9 Mean Corpuscular Hemoglobin 34.3 Concent Red Cell Distribution Width 16.6 Platelet Count 150 Mean Platelet Volume 8.7 Neutrophils (%) (Auto) 54.1 Lymphocytes (%) (Auto) 27.9 Monocytes (%) (Auto) 12.0 Eosinophils (%) (Auto) 5.0 Basophils (%) (Auto) 1.0 Neutrophils # (Auto) 2.2 Lymphocytes # (Auto) 1.1 Monocytes # (Auto) 0.5 Eosinophils # (Auto) 0.2 Basophils # (Auto) 0.0 CBC Comment DIFF FINAL Differential Comment Total Bilirubin 8.2 Direct Bilirubin 6.5 Indirect Bilirubin 1.7 Aspartate Amino Transf 630 (AST/SGOT) Alanine Aminotransferase 1500 (ALT/SGPT) Alkaline Phosphatase 98 Total Protein 5.3 Albumin 2.3 Imaging Last Impressions Abdomen/Pelvis CT 04/17/16 2224 Signed Impressions: Service Date/Time: Sunday, April 17, 2016 00:00 - CONCLUSION: Interval development of low volume ascites. Otherwise stable exam appearance Rangel Adames MD Liver Ultrasound 04/17/16 0000 Signed Impressions: Service Date/Time: Sunday, April 17, 2016 17:30 - CONCLUSION: 1. There is some gallbladder wall thickening and minimal pericholecystic fluid. 2. Liver is slightly heterogeneous. 3. HIDA scan may be beneficial. Jesus Ramos MD Physical Exam HEENT: normocephalic; atraumatic; + jaundice. NECK: Neck is supple, no JVD, no lymphadenopathy. CHEST: Chest is clear to auscultation and percussion. CARDIAC: Regular rate and rhythm with no murmur gallop or rubs. ABDOMEN: Soft, nondistended, diffused abdominal tenderness, more lower; hepatosplenomegaly; bowel sounds are present in all four quadrants. EXTREMITIES: No clubbing, cyanosis, or edema. SKIN: Normal; no rash;+ jaundice. JOURNEYMAN ELECTRICIAN: No focal deficits; alert and oriented times three. (Lucio Ryan) Assessment and Plan Plan ASSESSMENT: - Acute hepatitis B infection with worsening LFTs. LFTs trending down today, toxicology negative, Baraclude was started He was hospitalized from 04/01/16-04/06/16. His workup revealed Acetaminophen level < 2.0. Hepatitis Bs Ag (+), Hepatitis B Core IgM Ab (+). Hep Be Ag (+), Hepatitis B DNA PCR 42,900,000. Iron saturation 62%, AFP 3.2, Ceruloplasmin 31, Alpha 1 Antitrypsin 218. ROSEMARIE negative, AMA 46.7, ASMA negative. He was also noted to have some mild gallbladder wall thickening and pericholecystic fluid and had complained of some chronic intermittent abdominal pain wit food intake x 1.5 years. MRCP (04/02/16)------> 1. No evidence of gallstones in the gallbladder. However, there is some thickening of the gallbladder wall with some fluid around the gallbladder. He was evaluated by [facility] and they recommended follow up after his acute hepatitis had resolved. He was discharged on 04/06/16 with instructions to avoid ETOH, Acetaminophen, OTC meds , Herbal supplements and instructions for repeat labs and follow up. His LFTs on 04/06/16 were T. Bili 5.0, AST 842, ALT 1605, Alk Phosph 121. He reports that he went home and did not take any alcohol or any medications- OTC or herbal supplements. He returns to ER with ongoing worsening abdominal pain. - Abdominal pain. Found to have mild gallbladder wall thickening and pericholecystic fluid on MRCP during last hospitalization. He does report that he has had ongoing intermittent abdominal pain x 1.5 years. He was evaluated by Dr. Richardson and it was recommended that he follow up after his hepatitis b resolves for consideration of elective cholecystectomy. CT Scan abdomen/pelvis with IV contrast (04/17/16)-----> Interval development of low volume ascites, otherwise stable exam appearance. US (04/17/16) ----> There is some gallbladder wall thickening and minimal pericholecystic fluid. 2. Liver is slightly heterogeneous. - Elevated AMA 46.7. PLAN: - RICHAR - CMP in am - Cont. Baraclude - HIDA scan - Avoid hepatotoxic medications - Supportive care - Further recommendations to follow based on results of above - Pt seen and examined by Dr. Keen and myself and this note is written on his behalf (Lucio Ryan) Physician Comments Seen and examined with DRAFTER ASSISTANT, u/s raises possibilty of cholecystitis. Check HIDA , continue Baraclude,monitor labs. (Leila Keen MD) Lucio Ryan Apr 18, 2016 13:03 Leila Keen MD Apr 18, 2016 16:53
[2016-04-18] MEDS: MORPHINE SULFATE 4 MG/ML INJ IV PRN ×2 (13:04→19:53)
[2016-04-18 16:00] VITALS: BP 105/51; PULSE 53; RESP 18; TEMP 97.9; O2SAT 100
[2016-04-18 20:00] VITALS: BP 121/58; PULSE 60; RESP 18; TEMP 97.3; O2SAT 96
[2016-04-19] VITALS: BP 102/64; PULSE 56; RESP 18; TEMP 97.1; O2SAT 95
[2016-04-19 05:24] VITALS: BP 121/63; PULSE 55; RESP 15; TEMP 97.5; O2SAT 94
[2016-04-19] MEDS: ENTECAVIR 0.5 MG TAB PO SCH (05:27)
[2016-04-19 07:15] LABS: AUTOMATED NEUTROPHIL # 1.8 TH/MM3 (1.8-7.7); BASOPHIL % 0.7 % (0.0-2.0); EOSINOPHIL # 0.2 TH/MM3 (0-0.4); HEMATOCRIT 36.5 % (39.0-51.0); HEMO FLAGS DIFF FINAL; LYMPH % 35.2 % (9.0-44.0); LYMPHOCYTE # 1.4 TH/MM3 (1.0-4.8); MEAN CELL VOLUME 88.1 FL (80.0-100.0); MEAN CORPUSCULAR HEMOGLOBIN 29.2 PG (27.0-34.0); MEAN CORPUSCULAR HGB CONC 33.2 % (32.0-36.0); MONO % 11.2 % (0.0-8.0); NEUT % 46.9 % (16.0-70.0); PLATELET COUNT 155 TH/MM3 (150-450); RED BLOOD COUNT 4.14 MIL/MM3 (4.50-5.90); WHITE BLOOD COUNT 3.9 TH/MM3 (4.0-11.0)
[2016-04-19 07:30] VITALS: BP 121/70; PULSE 53; RESP 20; TEMP 97.6; O2SAT 97
[2016-04-19 07:50] LABS: ALKALINE PHOSPHATASE 116 U/L (45-117); ALT (GPT) 1091 U/L (12-78); ANION GAP 6 MEQ/L (5-15); AST (GOT) 337 U/L (15-37); BICARBONATE 29.2 MEQ/L (21.0-32.0); BLOOD UREA NITROGEN 10 MG/DL (7-18); CHLORIDE 106 MEQ/L (98-107); GLOMERULAR FILTRATION RATE 95 ML/MIN (>89); POTASSIUM 3.9 MEQ/L (3.5-5.1); SODIUM (NA) 141 MEQ/L (136-145); TOTAL BILIRUBIN ADULT 5.1 MG/DL (0.2-1.0)
--- NOTE | 2016-04-19 08:02 | HHI.PR ---
Subjective History of Present Illness Patient is resting in bed still with diffused abdominal pain more in the lower area. No nausea, no vomiting. He is jaundice and reports pale color stools and dark urine LFTs getting down. Review of Systems Constitutional Constitutional: Fatigue, Weakness GI/Abdomen GI/Abdominal Exam: Abdominal Pain GI/Abdomen Remarks jandice Vitals/Results Intake & Output 04/18/16 04/18/16 04/19/16 15:00 23:00 07:00 Intake Total 960 ml 240 ml Balance 960 ml 240 ml Intake Oral 960 ml 240 ml # Voids 4 2 2 # Bowel Movements 1 0 0 Vital Signs Vital Signs Date Time Temp Pulse Resp B/P Pulse Ox O2 Delivery O2 Flow Rate FiO2 04/19/16 05:24 97.5 55 15 121/63 94 04/19/16 00:00 97.1 56 18 102/64 95 04/18/16 20:00 97.3 60 18 121/58 96 04/18/16 16:00 97.9 53 18 105/51 100 04/18/16 16:00 97.9 53 18 105/51 100 04/18/16 12:00 96.7 56 16 110/58 98 CBC/BMP: 04/19/16 0630 04/19/16 0630 Lab Results Laboratory Tests Test 04/19/16 06:30 White Blood Count 3.9 TH/MM3 Red Blood Count 4.14 MIL/MM3 Hemoglobin 12.1 GM/DL Hematocrit 36.5 % Mean Corpuscular Volume 88.1 FL Mean Corpuscular Hemoglobin 29.2 PG Mean Corpuscular Hemoglobin 33.2 % Concent Red Cell Distribution Width 17.0 % Platelet Count 155 TH/MM3 Mean Platelet Volume 8.7 FL Neutrophils (%) (Auto) 46.9 % Lymphocytes (%) (Auto) 35.2 % Monocytes (%) (Auto) 11.2 % Eosinophils (%) (Auto) 6.0 % Basophils (%) (Auto) 0.7 % Neutrophils # (Auto) 1.8 TH/MM3 Lymphocytes # (Auto) 1.4 TH/MM3 Monocytes # (Auto) 0.4 TH/MM3 Eosinophils # (Auto) 0.2 TH/MM3 Basophils # (Auto) 0.0 TH/MM3 CBC Comment DIFF FINAL Differential Comment Sodium Level 141 MEQ/L Potassium Level 3.9 MEQ/L Chloride Level 106 MEQ/L Carbon Dioxide Level 29.2 MEQ/L Anion Gap 6 MEQ/L Blood Urea Nitrogen 10 MG/DL Creatinine 0.83 MG/DL Estimat Glomerular Filtration 95 ML/MIN Rate Random Glucose 105 MG/DL Calcium Level 7.9 MG/DL Total Bilirubin 5.1 MG/DL Aspartate Amino Transf 337 U/L (AST/SGOT) Alanine Aminotransferase 1091 U/L (ALT/SGPT) Alkaline Phosphatase 116 U/L Total Protein 5.5 GM/DL Albumin 2.4 GM/DL Physical Exam General General Appearance: No Acute Distress, Comfortable Eyes Eye Exam: Pupils Equal, Pupils Reactive, Sclera White, Extraocular Movement Intact Throat Throat Exam: Oral Mucosa [place] & Moist, Oral Pharynx Normal Neck Neck Exam: Neck Supple, Trachea Midline Pulmonary Resp Exam: Clear Bilaterally, Breath Sounds Equal, No Distress Cardiology CV Exam: Regular, Normal Sinus Rhythm Gastrointestinal/Abdomen GI Exam: Soft, Non-Tender, Bowel Sounds Present Musculoskeletal MS Exam: Normal Tone Integumentary Skin Exam: Clear, Warm, Dry, Intact Extremeties Extremities Exam: No Edema, Pedal Pulses Palpable Neurologic Neuro Exam: Alert, Awake, Oriented, Speech Clear, Moving All Extremities, No Focal Deficits Psychiatric Psych Exam: Appropriate Responses VTE Prophylaxis VTE Prophylaxis Meds: Heparin Assessment/Plan Assessment/Plan ASSESSMENT/PLAN This is a 56-year-old male who came to the ER diagnosed with: 1. Acute hepatitis B infection LFTs. getting better. He has mild gallbladder wall thickening with pericholecystic fluid and complaining of some chronic intermittent abdominal pain with food intake. An MRCP was done and shows no evidence of gallstone in the gallbladder; however, there is some thickening of the gallbladder wall with some fluid around the gallbladder. He was evaluated by the general surgeon and recommended follow-up after his acute hepatitis has resolved. GI saw the patient. 2. Abdominal pain with thickening of the gallbladder wall and pericholecystic fluid on MRCP. The patient needs a cholecystectomy after hepatitis is resolved. A recent CT of the abdomen done shows interval development of low volume ascites. The patient is on regular diet. Supportive care. 3. History of COPD. Continue home medication. 4. History of smoking. Advised to quit. Nicotine patch. 5. History of GERD. The patient is on Protonix 40 mg p.o. daily. 6. History of arthritis. 7. History of anxiety. 8. History of hearing loss, left ear. The patient is using a hearing aid. 9. History of basal and squamous cell cancer. 10. DVT prophylaxis. Heparin 5000 units subcutaneous twice a day. 11. GI prophylaxis. Famotidine 20 mg q.12h. Check CBC with diff CMP in AM. We are going to manage the patient on a daily basis and make recommendations on a daily basis. Discussed Condition with: Patient Mal Strickland MD Apr 19, 2016 08:02
[2016-04-19] MEDS: HEPARIN SODIUM - SQ 10,000 UNITS/ML VIAL SQ SCH ×2 (08:54→19:50)
[2016-04-19] MEDS: FAMOTIDINE 20 MG TAB PO SCH ×2 (08:54→19:49)
[2016-04-19] MEDS: SODIUM CHLORIDE 0.9% FLUSH 5 ML FLUSH FLUSH SCH ×2 (08:54→19:50)
[2016-04-19 11:00] VITALS: BP 109/56; PULSE 70; RESP 20; TEMP 96.9; O2SAT 95
[2016-04-19] MEDS: MORPHINE SULFATE 4 MG/ML INJ IV PRN ×4 (11:48→21:28)
--- NOTE | 2016-04-19 13:34 | HHI.GIFU ---
Subjective Remarks Patient is resting in bed, still with chronic abdominal pain lower to mid, 4-5 on the scale from 0-10, no nausea or vomiting (Lucio Ryan) Objective Vitals I&O Vital Signs Date Time Temp Pulse Resp B/P Pulse Ox O2 Delivery O2 Flow Rate FiO2 04/19/16 11:00 96.9 70 20 109/56 95 04/19/16 05:24 97.5 55 15 121/63 94 04/19/16 00:00 97.1 56 18 102/64 95 04/18/16 20:00 97.3 60 18 121/58 96 04/18/16 16:00 97.9 53 18 105/51 100 04/18/16 16:00 97.9 53 18 105/51 100 I/O 04/18/16 04/18/16 04/18/16 04/19/16 04/19/16 04/19/16 07:00 15:00 23:00 07:00 15:00 23:00 Intake Total 360 ml 960 ml 240 ml Balance 360 ml 960 ml 240 ml Intake Oral 360 ml 960 ml 240 ml # Voids 1 4 2 2 # Bowel Movements 0 1 0 0 Laboratory Laboratory Tests Test 04/19/16 06:30 White Blood Count 3.9 Red Blood Count 4.14 Hemoglobin 12.1 Hematocrit 36.5 Mean Corpuscular Volume 88.1 Mean Corpuscular Hemoglobin 29.2 Mean Corpuscular Hemoglobin 33.2 Concent Red Cell Distribution Width 17.0 Platelet Count 155 Mean Platelet Volume 8.7 Neutrophils (%) (Auto) 46.9 Lymphocytes (%) (Auto) 35.2 Monocytes (%) (Auto) 11.2 Eosinophils (%) (Auto) 6.0 Basophils (%) (Auto) 0.7 Neutrophils # (Auto) 1.8 Lymphocytes # (Auto) 1.4 Monocytes # (Auto) 0.4 Eosinophils # (Auto) 0.2 Basophils # (Auto) 0.0 CBC Comment DIFF FINAL Differential Comment Sodium Level 141 Potassium Level 3.9 Chloride Level 106 Carbon Dioxide Level 29.2 Anion Gap 6 Blood Urea Nitrogen 10 Creatinine 0.83 Estimat Glomerular Filtration 95 Rate Random Glucose 105 Calcium Level 7.9 Total Bilirubin 5.1 Aspartate Amino Transf 337 (AST/SGOT) Alanine Aminotransferase 1091 (ALT/SGPT) Alkaline Phosphatase 116 Total Protein 5.5 Albumin 2.4 Imaging Last Impressions Abdomen/Pelvis CT 04/17/16 2224 Signed Impressions: Service Date/Time: Sunday, April 17, 2016 00:00 - CONCLUSION: Interval development of low volume ascites. Otherwise stable exam appearance Rangel Adames MD Liver Ultrasound 04/17/16 0000 Signed Impressions: Service Date/Time: Sunday, April 17, 2016 17:30 - CONCLUSION: 1. There is some gallbladder wall thickening and minimal pericholecystic fluid. 2. Liver is slightly heterogeneous. 3. HIDA scan may be beneficial. Jesus Ramos MD Physical Exam HEENT: normocephalic; atraumatic; + jaundice. NECK: Neck is supple, no JVD, no lymphadenopathy. CHEST: Chest is clear to auscultation and percussion. CARDIAC: Regular rate and rhythm with no murmur gallop or rubs. ABDOMEN: Soft, nondistended, diffused abdominal tenderness, more lower; hepatosplenomegaly; bowel sounds are present in all four quadrants. EXTREMITIES: No clubbing, cyanosis, or edema. SKIN: Normal; no rash;+ jaundice. [employer]: No focal deficits; alert and oriented times three. (Connor,Lucio JOSHIP) Assessment and Plan Plan ASSESSMENT: - Acute hepatitis B infection with worsening LFTs. LFTs continue to trend down today, toxicology negative, Baraclude was started He was hospitalized from 04/01/16-04/06/16. His workup revealed Acetaminophen level < 2.0. Hepatitis Bs Ag (+), Hepatitis B Core IgM Ab (+). Hep Be Ag (+), Hepatitis B DNA PCR 42,900,000. Iron saturation 62%, AFP 3.2, Ceruloplasmin 31, Alpha 1 Antitrypsin 218. ROSEMARIE negative, AMA 46.7, ASMA negative. He was also noted to have some mild gallbladder wall thickening and pericholecystic fluid and had complained of some chronic intermittent abdominal pain wit food intake x 1.5 years. MRCP (04/02/16)------> 1. No evidence of gallstones in the gallbladder. However, there is some thickening of the gallbladder wall with some fluid around the gallbladder. He was evaluated by [facility] and they recommended follow up after his acute hepatitis had resolved. He was discharged on 04/06/16 with instructions to avoid ETOH, Acetaminophen, OTC meds , Herbal supplements and instructions for repeat labs and follow up. His LFTs on 04/06/16 were T. Bili 5.0, AST 842, ALT 1605, Alk Phosph 121. He reports that he went home and did not take any alcohol or any medications- OTC or herbal supplements. He returns to ER with ongoing worsening abdominal pain. - Abdominal pain. Found to have mild gallbladder wall thickening and pericholecystic fluid on MRCP during last hospitalization. He does report that he has had ongoing intermittent abdominal pain x 1.5 years. He was evaluated by Dr. Richardson and it was recommended that he follow up after his hepatitis b resolves for consideration of elective cholecystectomy. CT Scan abdomen/pelvis with IV contrast (04/17/16)-----> Interval development of low volume ascites, otherwise stable exam appearance. US (04/17/16) ----> There is some gallbladder wall thickening and minimal pericholecystic fluid. 2. Liver is slightly heterogeneous. - Elevated AMA 46.7. PLAN: - RICHAR - Cont. Baraclude - CMP in the am - HIDA scan pending to r/o cholecystitis - Consider EGD/colonoscopy at some point as patient never had evaluation and the abdominal pain is chronic in the lower and mid abdomen - Avoid hepatotoxic medications - Supportive care - Further recommendations to follow based on results of above - Pt seen and examined by Dr. Keen and myself and this note is written on his behalf (Lucio Ryan) Physician Comments Seen and examined with MS. Zhao , On baraclude for Hep B. Continue to monitor labs. EGD/ Colonoscopy next week. (Leila Keen MD) Lucio Ryan Apr 19, 2016 13:34 Leila Keen MD Apr 19, 2016 17:17
[2016-04-19 15:30] VITALS: BP 127/58; PULSE 54; RESP 20; TEMP 96.1; O2SAT 95
[2016-04-19 20:00] VITALS: BP 127/74; PULSE 53; RESP 19; TEMP 97.4; O2SAT 95
[2016-04-20] VITALS: BP 119/64; PULSE 58; RESP 18; TEMP 96.4; O2SAT 94
[2016-04-20 04:00] VITALS: BP 128/62; PULSE 55; RESP 19; TEMP 96.8; O2SAT 94
[2016-04-20] MEDS: MORPHINE SULFATE 4 MG/ML INJ IV PRN ×6 (04:18→21:44)
[2016-04-20] MEDS: ENTECAVIR 0.5 MG TAB PO SCH (05:08)
[2016-04-20 08:00] VITALS: BP 120/64; PULSE 52; RESP 18; TEMP 96.8; O2SAT 96
--- NOTE | 2016-04-20 08:02 | HHI.PR ---
Subjective History of Present Illness Patient getting HIDA Scan today still have diffuse abdominal pain more in the lower area. No nausea, no vomiting. He is jaundice and reports pale color stools and dark urine LFTs getting down. Review of Systems Constitutional Constitutional: Fatigue, Weakness GI/Abdomen GI/Abdominal Exam: Abdominal Pain GI/Abdomen Remarks jandice Vitals/Results Intake & Output 04/19/16 04/19/16 04/20/16 15:00 23:00 07:00 Intake Total 720 ml 480 ml 240 ml Balance 720 ml 480 ml 240 ml Intake Oral 720 ml 480 ml 240 ml IV Total 0 ml # Voids 8 4 3 # Bowel Movements 1 Vital Signs Vital Signs Date Time Temp Pulse Resp B/P Pulse Ox O2 Delivery O2 Flow Rate FiO2 04/20/16 04:00 96.8 55 19 128/62 94 04/20/16 00:00 96.4 58 18 119/64 94 04/19/16 20:00 97.4 53 19 127/74 95 04/19/16 19:05 04/19/16 15:30 96.1 54 20 127/58 95 04/19/16 14:27 04/19/16 11:00 96.9 70 20 109/56 95 CBC/BMP: 04/19/16 0630 04/19/16 0630 Physical Exam General General Appearance: No Acute Distress, Comfortable Eyes Eye Exam: Pupils Equal, Pupils Reactive, Sclera White, Extraocular Movement Intact Throat Throat Exam: Oral Mucosa Alicia & Moist, Oral Pharynx Normal Neck Neck Exam: Neck Supple, Trachea Midline Pulmonary Resp Exam: Clear Bilaterally, Breath Sounds Equal, No Distress Cardiology CV Exam: Regular, Normal Sinus Rhythm Gastrointestinal/Abdomen GI Exam: Soft, Non-Tender, Bowel Sounds Present Musculoskeletal MS Exam: Normal Tone Integumentary Skin Exam: Clear, Warm, Dry, Intact Extremeties Extremities Exam: No Edema, Pedal Pulses Palpable Neurologic Neuro Exam: Alert, Awake, Oriented, Speech Clear, Moving All Extremities, No Focal Deficits Psychiatric Psych Exam: Appropriate Responses VTE Prophylaxis VTE Prophylaxis Meds: Heparin Assessment/Plan Assessment/Plan ASSESSMENT/PLAN This is a 56-year-old male who came to the ER diagnosed with: 1. Acute hepatitis B infection LFTs. getting better. He has mild gallbladder wall thickening with pericholecystic fluid and complaining of some chronic intermittent abdominal pain with food intake. An MRCP was done and shows no evidence of gallstone in the gallbladder; however, there is some thickening of the gallbladder wall with some fluid around the gallbladder. Getting HIDA Scan.. He was evaluated by the general surgeon and recommended follow-up after his acute hepatitis has resolved. GI following the patient. 2. Abdominal pain with thickening of the gallbladder wall and pericholecystic fluid on MRCP. The patient needs a cholecystectomy after hepatitis is resolved. A recent CT of the abdomen done shows interval development of low volume ascites. The patient is on regular diet. Supportive care. 3. History of COPD. Continue home medication. 4. History of smoking. Advised to quit. Nicotine patch. 5. History of GERD. The patient is on Protonix 40 mg p.o. daily. 6. History of arthritis. 7. History of anxiety. 8. History of hearing loss, left ear. The patient is using a hearing aid. 9. History of basal and squamous cell cancer. 10. DVT prophylaxis. Heparin 5000 units subcutaneous twice a day. 11. GI prophylaxis. Famotidine 20 mg q.12h. Check CBC with diff CMP in AM. We are going to manage the patient on a daily basis and make recommendations on a daily basis. Discussed Condition with: Patient Mal Strickland MD Apr 20, 2016 08:01
[2016-04-20 08:27] LABS: AUTOMATED NEUTROPHIL # 2.7 TH/MM3 (1.8-7.7); BASOPHIL % 0.8 % (0.0-2.0); EOSINOPHIL # 0.2 TH/MM3 (0-0.4); EOSINOPHIL % 3.4 % (0.0-4.0); HEMATOCRIT 40.2 % (39.0-51.0); HEMO FLAGS DIFF FINAL; LYMPH % 32.4 % (9.0-44.0); LYMPHOCYTE # 1.6 TH/MM3 (1.0-4.8); MEAN CELL VOLUME 88.2 FL (80.0-100.0); MEAN CORPUSCULAR HEMOGLOBIN 29.1 PG (27.0-34.0); MEAN CORPUSCULAR HGB CONC 33.1 % (32.0-36.0); MONO % 9.2 % (0.0-8.0); NEUT % 54.2 % (16.0-70.0); PLATELET COUNT 195 TH/MM3 (150-450); RED BLOOD COUNT 4.56 MIL/MM3 (4.50-5.90); RED CELL DISTRIBUTION WIDTH 17.3 % (11.6-17.2); WHITE BLOOD COUNT 4.9 TH/MM3 (4.0-11.0)
[2016-04-20 08:41] LABS: ALKALINE PHOSPHATASE 108 U/L (45-117); ALT (GPT) 932 U/L (12-78); ANION GAP 6 MEQ/L (5-15); AST (GOT) 224 U/L (15-37); BICARBONATE 29.7 MEQ/L (21.0-32.0); BLOOD UREA NITROGEN 12 MG/DL (7-18); CHLORIDE 103 MEQ/L (98-107); GLOMERULAR FILTRATION RATE 104 ML/MIN (>89); POTASSIUM 4.5 MEQ/L (3.5-5.1); SODIUM (NA) 139 MEQ/L (136-145); TOTAL BILIRUBIN ADULT 5.2 MG/DL (0.2-1.0)
[2016-04-20] MEDS ORDERED: SINCALIDE 5 MCG/5 ML VIAL IV ONE (11:05)
[2016-04-20] MEDS: FAMOTIDINE 20 MG TAB PO SCH ×2 (11:58→21:56)
[2016-04-20] MEDS: SODIUM CHLORIDE 0.9% FLUSH 5 ML FLUSH FLUSH SCH ×2 (11:59→21:45)
[2016-04-20] MEDS: HEPARIN SODIUM - SQ 10,000 UNITS/ML VIAL SQ SCH ×2 (11:59→21:43)
[2016-04-20 12:00] VITALS: BP 132/71; PULSE 54; RESP 20; TEMP 96.9; O2SAT 98
--- NOTE | 2016-04-20 12:43 | RADRPT ---
EXAM DATE/TIME: 04/20/2016 09:29 [facility] COMPARISON: CT ABDOMEN & PELVIS W CONTRAST, April 17, 2016, 0:00. US ABDOMEN - LIVER, April 17, 2016, 17:30. INDICATIONS : Abdominal pain in the left upper quadrant and left lower quadrant for 5 days with nausea. DOSE: 4.3 mCi Tc99m Mebrofenin IV MEDICATION: 1.4 mcg Cholecystokinin IV; Indential symptomatic response. Cholecystokinin was administered by slow infusion over 8 minutes beginning at 83 minutes. MEDICAL HISTORY : Hepatitis B. Gastroesophageal reflux disease. Chronic obstructive pulmonary disease. Gallbladder dise ase, jaundice and basal and squamous cell skin cancer. SURGICAL HISTORY : Total knee replacement, right. Cardiac catheterization x2, vasectomy, right wrist and right index finger. ENCOUNTER: Initial ACUITY: 4 - 6 days PAIN SCALE: 4/10 LOCATION: Left abdomen. TECHNIQUE: Following the intravenous administration of radiotracer, dynamic sequential image were performed with continuous acquisition. Time-activity curves were generated. FINDINGS: HEPATIIC KINETICS: There is prompt uptake of radiotracer in the liver. No focal defects are seen. There is normal rate of washout from the hepatic parenchyma. BILIARY CLEARANCE: Activity is never clearly seen in the extrahepatic biliary system there is visualized bowel activity at 75 minutes. There is excretion into the small bowel. GALLBLADDER: Activity is first seen in the gallbladder at 20 minutes. POST CHOLECYSTOKININ: After Cholecystokinin administration, there is little emptying of the gallbladder with slightly less than 20% ejection fraction. Common bile duct kinetics are normal and there is no evidence of biliary obstruction. BILIARY ENTERIC REFLUX: None observed. CLINICAL: The patient experienced abdominal pain and shortness of breath following CCK administration. CONCLUSION: 1. There is normal filling of the gallbladder which excludes cystic duct obstruction. 2. However, there is abnormal gallbladder response to CCK with slightly less than 20% ejection fracti on. Rangel Jewell MD on April 20, 2016 at 12:37 Board Certified Radiologist. This report was verified electronically.
[2016-04-20 16:00] VITALS: BP 105/69; PULSE 61; RESP 18; TEMP 97; O2SAT 99
[2016-04-20 20:00] VITALS: BP 108/55; PULSE 57; RESP 18; TEMP 97.5; O2SAT 93
[2016-04-21] VITALS: BP 121/58; PULSE 55; RESP 17; TEMP 97; O2SAT 94
[2016-04-21 04:00] VITALS: BP 109/55; PULSE 63; RESP 18; TEMP 96.3; O2SAT 93
[2016-04-21] MEDS: ENTECAVIR 0.5 MG TAB PO SCH (04:21)
[2016-04-21] MEDS: MORPHINE SULFATE 4 MG/ML INJ IV PRN ×6 (04:21→21:55)
[2016-04-21 08:00] VITALS: BP 130/63; PULSE 53; RESP 18; TEMP 97.5; O2SAT 94
[2016-04-21] MEDS: HEPARIN SODIUM - SQ 10,000 UNITS/ML VIAL SQ SCH ×2 (08:58→21:55)
[2016-04-21] MEDS: FAMOTIDINE 20 MG TAB PO SCH ×2 (08:58→21:55)
[2016-04-21] MEDS: SODIUM CHLORIDE 0.9% FLUSH 5 ML FLUSH FLUSH SCH ×2 (08:58→21:55)
--- NOTE | 2016-04-21 09:49 | HHI.PR ---
Subjective History of Present Illness Patient s/p HIDA Scan show no cystic duct obstruction still have diffuse abdominal pain more in the lower area. No nausea, no vomiting. He is jaundice and reports pale color stools and dark urine LFTs getting down. ok to dc home today if ok with GI. Review of Systems Constitutional Constitutional: Fatigue, Weakness GI/Abdomen GI/Abdominal Exam: Abdominal Pain GI/Abdomen Remarks jandice Vitals/Results Intake & Output 04/20/16 04/20/16 04/21/16 15:00 23:00 07:00 Intake Total 1660 ml 480 ml Balance 1660 ml 480 ml Intake Oral 1660 ml 480 ml # Voids 5 2 # Bowel Movements 1 Vital Signs Vital Signs Date Time Temp Pulse Resp B/P Pulse Ox O2 Delivery O2 Flow Rate FiO2 04/21/16 04:00 96.3 63 18 109/55 93 04/21/16 00:00 97.0 55 17 121/58 94 04/20/16 20:00 97.5 57 18 108/55 93 04/20/16 16:00 97.0 61 18 105/69 99 04/20/16 12:00 96.9 54 20 132/71 98 CBC/BMP: 04/20/16 0743 04/20/16 0743 Physical Exam General General Appearance: No Acute Distress, Comfortable Eyes Eye Exam: Pupils Equal, Pupils Reactive, Sclera White, Extraocular Movement Intact Throat Throat Exam: Oral Mucosa Quintana & Moist, Oral Pharynx Normal Neck Neck Exam: Neck Supple, Trachea Midline Pulmonary Resp Exam: Clear Bilaterally, Breath Sounds Equal, No Distress Cardiology CV Exam: Regular, Normal Sinus Rhythm Gastrointestinal/Abdomen GI Exam: Soft, Non-Tender, Bowel Sounds Present Musculoskeletal MS Exam: Normal Tone Integumentary Skin Exam: Clear, Warm, Dry, Intact Extremeties Extremities Exam: No Edema, Pedal Pulses Palpable Neurologic Neuro Exam: Alert, Awake, Oriented, Speech Clear, Moving All Extremities, No Focal Deficits Psychiatric Psych Exam: Appropriate Responses VTE Prophylaxis VTE Prophylaxis Meds: Heparin Assessment/Plan Assessment/Plan ASSESSMENT/PLAN This is a 56-year-old male who came to the ER diagnosed with: 1. Acute hepatitis B infection LFTs. getting better. He has mild gallbladder wall thickening with pericholecystic fluid and complaining of some chronic intermittent abdominal pain with food intake. An MRCP was done and shows no evidence of gallstone in the gallbladder; however, there is some thickening of the gallbladder wall with some fluid around the gallbladder. S/P HIDA Scan....show no cystic duct obstruction He was evaluated by the general surgeon and recommended follow-up after his acute hepatitis has resolved. GI following the patient. 2. Abdominal pain with thickening of the gallbladder wall and pericholecystic fluid on MRCP. The patient needs a cholecystectomy after hepatitis is resolved. A recent CT of the abdomen done shows interval development of low volume ascites. The patient is on regular diet. Supportive care. 3. History of COPD. Continue home medication. 4. History of smoking. Advised to quit. Nicotine patch. 5. History of GERD. The patient is on Protonix 40 mg p.o. daily. 6. History of arthritis. 7. History of anxiety. 8. History of hearing loss, left ear. The patient is using a hearing aid. 9. History of basal and squamous cell cancer. 10. DVT prophylaxis. Heparin 5000 units subcutaneous twice a day. 11. GI prophylaxis. Famotidine 20 mg q.12h. ok to dc home today if ok with GI. f/u with PCP/GI /General surgery 1 week. Discussed Condition with: Patient Mal Strickland MD Apr 21, 2016 09:49
[2016-04-21 12:00] VITALS: BP 122/55; PULSE 61; RESP 20; TEMP 97.8; O2SAT 94
[2016-04-21] MEDS ORDERED: HYDR-3533 PO (12:21)
[2016-04-21 16:00] VITALS: BP 125/60; PULSE 55; RESP 18; TEMP 97.6; O2SAT 95
[2016-04-21 20:00] VITALS: BP 119/60; PULSE 56; RESP 17; TEMP 96.8; O2SAT 94
[2016-04-22] VITALS: BP 113/55; PULSE 54; RESP 18; TEMP 96.4; O2SAT 93
[2016-04-22] MEDS: MORPHINE SULFATE 4 MG/ML INJ IV PRN ×2 (02:13→04:47)
[2016-04-22 04:00] VITALS: BP 123/60; PULSE 52; RESP 18; TEMP 96.1; O2SAT 94
[2016-04-22] MEDS: ENTECAVIR 0.5 MG TAB PO SCH (04:44)
[2016-04-22 07:19] LABS: AUTOMATED NEUTROPHIL # 2.5 TH/MM3 (1.8-7.7); BASOPHIL % 0.8 % (0.0-2.0); EOSINOPHIL # 0.3 TH/MM3 (0-0.4); EOSINOPHIL % 6.1 % (0.0-4.0); HEMATOCRIT 38.9 % (39.0-51.0); HEMO FLAGS DIFF FINAL; LYMPHOCYTE # 1.5 TH/MM3 (1.0-4.8); MEAN CELL VOLUME 88.1 FL (80.0-100.0); MEAN CORPUSCULAR HEMOGLOBIN 29.6 PG (27.0-34.0); MEAN CORPUSCULAR HGB CONC 33.6 % (32.0-36.0); MONO % 11.8 % (0.0-8.0); NEUT % 50.3 % (16.0-70.0); PLATELET COUNT 165 TH/MM3 (150-450); RED BLOOD COUNT 4.42 MIL/MM3 (4.50-5.90); RED CELL DISTRIBUTION WIDTH 17.1 % (11.6-17.2); WHITE BLOOD COUNT 4.9 TH/MM3 (4.0-11.0)
[2016-04-22 07:55] LABS: ALT (GPT) 505 U/L (12-78); ANION GAP 6 MEQ/L (5-15); AST (GOT) 89 U/L (15-37); BICARBONATE 30.3 MEQ/L (21.0-32.0); CHLORIDE 104 MEQ/L (98-107); GLOMERULAR FILTRATION RATE 84 ML/MIN (>89); POTASSIUM 4.4 MEQ/L (3.5-5.1); SODIUM (NA) 140 MEQ/L (136-145)
[2016-04-22 08:00] VITALS: BP 114/58; PULSE 57; RESP 18; TEMP 96.5; O2SAT 95
[2016-04-22 08:04] LABS: ALKALINE PHOSPHATASE 111 U/L (45-117); BLOOD UREA NITROGEN 15 MG/DL (7-18); TOTAL BILIRUBIN ADULT 2.9 MG/DL (0.2-1.0)
--- NOTE | 2016-04-22 09:34 | HHI.PR ---
Subjective History of Present Illness Patient s/p HIDA Scan show no cystic duct obstruction still have diffuse abdominal pain more in the lower area. No nausea, no vomiting. He is jaundice and reports pale color stools and dark urine LFTs getting down. ok to dc home today. Review of Systems Constitutional Constitutional: Fatigue, Weakness GI/Abdomen GI/Abdominal Exam: Abdominal Pain GI/Abdomen Remarks jandice Vitals/Results Intake & Output 04/21/16 04/21/16 04/22/16 15:00 23:00 07:00 Intake Total 1560 ml 480 ml 240 ml Balance 1560 ml 480 ml 240 ml Intake Oral 1560 ml 480 ml 240 ml # Voids 3 3 1 # Bowel Movements 1 1 Vital Signs Vital Signs Date Time Temp Pulse Resp B/P Pulse Ox O2 Delivery O2 Flow Rate FiO2 04/22/16 04:54 18 04/22/16 04:00 96.1 52 18 123/60 94 04/22/16 00:00 96.4 54 18 113/55 93 04/21/16 20:00 96.8 56 17 119/60 94 04/21/16 16:00 97.6 55 18 125/60 95 04/21/16 12:00 97.8 61 20 122/55 94 CBC/BMP: 04/22/16 0650 04/22/16 0650 Lab Results Laboratory Tests Test 04/22/16 06:50 White Blood Count 4.9 TH/MM3 Red Blood Count 4.42 MIL/MM3 Hemoglobin 13.1 GM/DL Hematocrit 38.9 % Mean Corpuscular Volume 88.1 FL Mean Corpuscular Hemoglobin 29.6 PG Mean Corpuscular Hemoglobin 33.6 % Concent Red Cell Distribution Width 17.1 % Platelet Count 165 TH/MM3 Mean Platelet Volume 8.3 FL Neutrophils (%) (Auto) 50.3 % Lymphocytes (%) (Auto) 31.0 % Monocytes (%) (Auto) 11.8 % Eosinophils (%) (Auto) 6.1 % Basophils (%) (Auto) 0.8 % Neutrophils # (Auto) 2.5 TH/MM3 Lymphocytes # (Auto) 1.5 TH/MM3 Monocytes # (Auto) 0.6 TH/MM3 Eosinophils # (Auto) 0.3 TH/MM3 Basophils # (Auto) 0.0 TH/MM3 CBC Comment DIFF FINAL Differential Comment Sodium Level 140 MEQ/L Potassium Level 4.4 MEQ/L Chloride Level 104 MEQ/L Carbon Dioxide Level 30.3 MEQ/L Anion Gap 6 MEQ/L Blood Urea Nitrogen 15 MG/DL Creatinine 0.93 MG/DL Estimat Glomerular Filtration 84 ML/MIN Rate Random Glucose 107 MG/DL Calcium Level 8.6 MG/DL Total Bilirubin 2.9 MG/DL Aspartate Amino Transf 89 U/L (AST/SGOT) Alanine Aminotransferase 505 U/L (ALT/SGPT) Alkaline Phosphatase 111 U/L Total Protein 6.2 GM/DL Albumin 2.6 GM/DL Physical Exam General General Appearance: No Acute Distress, Comfortable Eyes Eye Exam: Pupils Equal, Pupils Reactive, Sclera White, Extraocular Movement Intact Throat Throat Exam: Oral Mucosa Skene & Moist, Oral Pharynx Normal Neck Neck Exam: Neck Supple, Trachea Midline Pulmonary Resp Exam: Clear Bilaterally, Breath Sounds Equal, No Distress Cardiology CV Exam: Regular, Normal Sinus Rhythm Gastrointestinal/Abdomen GI Exam: Soft, Non-Tender, Bowel Sounds Present Musculoskeletal MS Exam: Normal Tone Integumentary Skin Exam: Clear, Warm, Dry, Intact Extremeties Extremities Exam: No Edema, Pedal Pulses Palpable Neurologic Neuro Exam: Alert, Awake, Oriented, Speech Clear, Moving All Extremities, No Focal Deficits Psychiatric Psych Exam: Appropriate Responses VTE Prophylaxis VTE Prophylaxis Meds: Heparin Assessment/Plan Assessment/Plan ASSESSMENT/PLAN This is a 56-year-old male who came to the ER diagnosed with: 1. Acute hepatitis B infection LFTs. getting better. He has mild gallbladder wall thickening with pericholecystic fluid and complaining of some chronic intermittent abdominal pain with food intake. An MRCP was done and shows no evidence of gallstone in the gallbladder; however, there is some thickening of the gallbladder wall with some fluid around the gallbladder. S/P HIDA Scan....show no cystic duct obstruction He was evaluated by the general surgeon and recommended follow-up after his acute hepatitis has resolved. GI following the patient. 2. Abdominal pain with thickening of the gallbladder wall and pericholecystic fluid on MRCP. The patient needs a cholecystectomy after hepatitis is resolved. A recent CT of the abdomen done shows interval development of low volume ascites. The patient is on regular diet. Supportive care. 3. History of COPD. Continue home medication. 4. History of smoking. Advised to quit. Nicotine patch. 5. History of GERD. The patient is on Protonix 40 mg p.o. daily. 6. History of arthritis. 7. History of anxiety. 8. History of hearing loss, left ear. The patient is using a hearing aid. 9. History of basal and squamous cell cancer. 10. DVT prophylaxis. Heparin 5000 units subcutaneous twice a day. 11. GI prophylaxis. Famotidine 20 mg q.12h. ok to dc home today if ok with GI. f/u with PCP/GI /General surgery 1 week. Discussed Condition with: Patient Mal Strickland MD Apr 22, 2016 09:34
[2016-04-22] MEDS: FAMOTIDINE 20 MG TAB PO SCH (10:01)
[2016-04-22] MEDS: HEPARIN SODIUM - SQ 10,000 UNITS/ML VIAL SQ SCH (10:01)
[2016-04-22] MEDS: SODIUM CHLORIDE 0.9% FLUSH 5 ML FLUSH FLUSH SCH (10:01)
--- NOTE | 2016-04-30 22:24 | MD ---
cc: AML MAJOR MD ADMISSION DATE: 04/19/2016 DISCHARGE DATE: 04/22/2016 Okay to discharge patient. Condition at the time of discharge satisfactory. Activity as tolerated. Diet, cardiac diet. ALLERGIES NO KNOWN DRUG ALLERGIES. DISCHARGE MEDICATIONS Include: 1. Lortab 5/325 q.6 hours p.r.n. pain. 2. Albuterol inhaler 1-2 puffs q.6h and albuterol nebulization 2.5 mg q.4h as needed. The The patient advised to follow up with gastroenterology, PCP and general surgery. ADMISSION DIAGNOSES Abdominal pain secondary to acute hepatitis B. LFTs were high and improved a lot at the time of discharge. MRCP was done and shows no evidence of gallstone in the gallbladder, however, there is some thickening of the gallbladder wall with some fluid around the bladder. Status post HIDA scan. The HIDA scan shows no cystic duct obstruction, but it does show abnormal gallbladder response to CCK with a slightly less than 20% ejection fraction. The patient needs a cholecystectomy. The patient advised to follow up with general surgery once acute hepatitis resolved. The patient remained stable during hospital stay. No acute event happened. Other comorbidities include a history of COPD, smoking, gastroesophageal reflux disease, arthritis, anxiety, hearing loss left ear, basal cell squamous cancer. HOSPITAL COURSE This is a 56-year-old male admitted with abdominal pain. Diagnosed with acute hepatitis B. The patient's liver function tests were high. The patient had a HIDA scan as well as MRCP. The patient remained stable. No acute event happened. Discharged in satisfactory condition. Further details in medical record. Mal Major MD EA/LYNSYE /12:25 PM /10:17 PM
== END 2016-04-22 13:10 | disposition home or self-care (01) | DRG 442 ==
LOC: NEPE 21:33 → INTOOBSV 04-17 00:21 → NEDA 04-17 00:21 → HOCB 04-17 04:55 → OBSVTOIN 04-19 09:19
PROVIDERS: ADMIT Family Medicine; ATTEND Family Medicine
DX: B16.9 Acute hepatitis B without delta-agent and without hepatic coma (principal); R18.8 Other ascites; J44.9 Chronic obstructive pulmonary disease, unspecified; K82.8 Other specified diseases of gallbladder; F17.210 Nicotine dependence, cigarettes, uncomplicated; K21.9 Gastro-esophageal reflux disease without esophagitis; H91.92 Unspecified hearing loss, left ear; G89.29 Other chronic pain; M19.90 Unspecified osteoarthritis, unspecified site; Z85.828 Personal history of other malignant neoplasm of skin
CPT/HCPCS: 74177; 76705; 78227; 80053; 80076; 80307; 80320; 81001; 83690; 83735; 85007; 85025; 85027; 85610; 85730; 86140; 93005; 96374; 96375; A9537; G0378; J1644; J2270; J2405; J2805; J7030; Q9963; Q9967

== ENCOUNTER 2017-05-14 09:41 | Emergency (ER) | payer SELFPAY ==
[~2017-05-14] VITALS: Ht 185.4 cm; Wt 80.0 kg
[~2017-05-14 09:41] MED LIST changes: +HYDR-3533 PO
[2017-05-14 09:42] VITALS: BP 149/67; PULSE 87; RESP 20; TEMP 98.2; O2SAT 95
--- NOTE | 2017-05-14 10:40 | PD ---
HPI Chief Complaint: Pain: Acute or Chronic Time Seen by Provider: 10:36 Travel History International Travel<30 days: No Contact w/Intl Traveler<30days: No Traveled to known affect area: No History of Present Illness HPI This is a 57-year-old male with history of hepatitis B, COPD, presents for evaluation of bilateral leg pain. Reports that initially he had pain somewhat mildly in his legs approximately one month ago. Over the past 5 days the pain is worsened this was prompted evaluation. He describes it as a crampy pain in the calves and thighs bilaterally which is constant, worse when walking. He denies any injury. He denies any back pain, abdominal pain, dark colored urine. 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 He has no other complaints at this time. PFSH Past Medical History Arthritis: Yes Asthma: No Blood Disorders: No Anxiety: Yes Depression: No Cancer: Yes (basal and squamous cell skin) Cardiac Catheterization: Yes (X2) Cardiovascular Problems: No High Cholesterol: No Chemotherapy: No COPD: Yes Diabetes: No Diminished Hearing: Yes (LEFT EAR [place]) Endocrine: No Gastrointestinal Disorders: Yes (GASTRIC REFLUX, esophageal spasms) GERD: Yes Genitourinary: No Immune Disorder: No Musculoskeletal: Yes Neurologic: No Psychiatric: No Reproductive: No Respiratory: Yes Radiation Therapy: No Sleep Apnea: No Past Surgical History Genitourinary Surgery: Yes (Vasectomy 2001) Neurologic Surgery: No Other Surgery: Yes (R knee, R wrist, R index finger.) Social History Alcohol Use: No (OCCASIONAL) Tobacco Use: Yes (1 PPD x 45 YEARS) Substance Use: No Allergies-Medications (Allergen,Severity, Reaction): Coded Allergies: No Known Allergies (Verified , 04/16/16) Reported Meds & Prescriptions Reported Meds & Active Scripts Active Lortab (Hydrocodone-Acetaminophen) 5-325 Mg Tab 1 Tab PO Q6H PRN Reported Albuterol Neb (Albuterol Sulfate) 2.5 Mg/0.5 Ml Neb 2.5 Mg NEB Q4HR NEB PRN Note: The Albuterol Sulfate Inhalation Solution is concentrated and must be diluted. Read complete instructions carefully before using. Ventolin Hfa 18 GM Inh (Albuterol Sulfate) 90 Mcg/Act Aer 1 Puff INH BID PRN Review of Systems Except as stated in HPI: all other systems reviewed are Neg Physical Exam Narrative GENERAL: Well-developed well-nourished male in no acute distress SKIN: Warm and dry. HEAD: Atraumatic. Normocephalic. EYES: Pupils equal and round. No scleral icterus. No injection or drainage. ENT: No nasal bleeding or discharge. Mucous membranes pink and moist. NECK: Trachea midline. No JVD. CARDIOVASCULAR: Regular rate and rhythm. No murmur appreciated. RESPIRATORY: No accessory muscle use. Clear to auscultation. Breath sounds equal bilaterally. GASTROINTESTINAL: Abdomen soft, non-tender, nondistended. Hepatic and splenic margins not palpable. MUSCULOSKELETAL: No obvious deformities. There is some tenderness to palpation of the thighs and calves bilaterally. The muscle groups are soft. There is no lower extremity edema. There is no tenderness to palpation of the hips, knees, ankles. The patient maintains full range of motion of the lower extremities. 2 + dorsalis pedis and posterior tibial pulses bilaterally. NEUROLOGICAL: Awake and alert. No obvious cranial nerve deficits. Motor grossly within normal limits. Normal speech. Data Data Last Documented VS Vital Signs Date Time Temp Pulse Resp B/P (MAP) Pulse Ox O2 Delivery O2 Flow Rate FiO2 05/14/17 09:42 98.2 87 20 149/67 (94) 95 Orders Orders Complete Blood Count With Diff (05/14/17 10:36) Basic Metabolic Panel (Bmp) (05/14/17 10:36) Creatine Kinase (Cpk) (05/14/17 10:36) Magnesium (Mg) (05/14/17 10:36) Us Leg Venous Doppler Bilat (05/14/17 10:36) Labs Laboratory Tests Test 05/14/17 10:46 White Blood Count 10.0 TH/MM3 Red Blood Count 4.86 MIL/MM3 Hemoglobin 14.4 GM/DL Hematocrit 42.6 % Mean Corpuscular Volume 87.5 FL Mean Corpuscular Hemoglobin 29.6 PG Mean Corpuscular Hemoglobin Concent 33.9 % Red Cell Distribution Width 13.1 % Platelet Count 184 TH/MM3 Mean Platelet Volume 7.4 FL Neutrophils (%) (Auto) 74.9 % Lymphocytes (%) (Auto) 15.5 % Monocytes (%) (Auto) 7.9 % Eosinophils (%) (Auto) 1.3 % Basophils (%) (Auto) 0.4 % Neutrophils # (Auto) 7.5 TH/MM3 Lymphocytes # (Auto) 1.5 TH/MM3 Monocytes # (Auto) 0.8 TH/MM3 Eosinophils # (Auto) 0.1 TH/MM3 Basophils # (Auto) 0.0 TH/MM3 CBC Comment DIFF FINAL Differential Comment Blood Urea Nitrogen 15 MG/DL Creatinine 0.97 MG/DL Random Glucose 120 MG/DL Calcium Level 8.5 MG/DL Magnesium Level 2.2 MG/DL Sodium Level 139 MEQ/L Potassium Level 4.1 MEQ/L Chloride Level 105 MEQ/L Carbon Dioxide Level 29.7 MEQ/L Anion Gap 4 MEQ/L Estimat Glomerular Filtration Rate 79 ML/MIN Total Creatine Kinase 67 U/L MDM Medical Decision Making Medical Screen Exam Complete: Yes Emergency Medical Condition: Yes Medical Record Reviewed: Yes Differential Diagnosis Peripheral neuropathy, muscle spasm, DVT, rhabdomyolysis, intermittent claudication, peripheral vascular disease Narrative Course 57-year-old male presents with bilateral lower extremity pain. His pain seems to be primarily in the major muscle groups of the thighs and calves. He has no arthralgias. He has excellent peripheral pulses. 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 Ultrasound of the lower extremities is been ordered as well as lab work. Ultrasounds are negative. Lab work is unremarkable. The patient will be discharged, recommended [id number] NSAID use and follow up with primary care physician. Diagnosis Primary Impression: Bilateral leg pain Additional Instructions: Take [id number] Tylenol or ibuprofen. Follow-up with primary care physician and return for any emergent medical conditions. Med/Other Pt SpecificInfo: No Change to Meds Disposition: 01 DISCHARGE HOME Condition: Stable Rubio Garland May 14, 2017 10:40
[2017-05-14 11:05] LABS: AUTOMATED NEUTROPHIL # 7.5 TH/MM3 (1.8-7.7); BASOPHIL % 0.4 % (0.0-2.0); EOSINOPHIL # 0.1 TH/MM3 (0-0.4); EOSINOPHIL % 1.3 % (0.0-4.0); HEMATOCRIT 42.6 % (39.0-51.0); HEMOGLOBIN 14.4 GM/DL (13.0-17.0); LYMPH % 15.5 % (9.0-44.0); LYMPHOCYTE # 1.5 TH/MM3 (1.0-4.8); MEAN CELL VOLUME 87.5 FL (80.0-100.0); MEAN CORPUSCULAR HEMOGLOBIN 29.6 PG (27.0-34.0); MEAN CORPUSCULAR HGB CONC 33.9 % (32.0-36.0); MEAN PLATELET VOLUME 7.4 FL (7.0-11.0); MONO % 7.9 % (0.0-8.0); MONOCYTE # 0.8 TH/MM3 (0-0.9); NEUT % 74.9 % (16.0-70.0); PLATELET COUNT 184 TH/MM3 (150-450); RED BLOOD COUNT 4.86 MIL/MM3 (4.50-5.90); RED CELL DISTRIBUTION WIDTH 13.1 % (11.6-17.2)
[2017-05-14 11:20] LABS: BICARBONATE 29.7 MEQ/L (21.0-32.0); CALCIUM 8.5 MG/DL (8.5-10.1); CREATININE 0.97 MG/DL (0.60-1.30); MAGNESIUM 2.2 MG/DL (1.5-2.5)
--- NOTE | 2017-05-14 11:40 | RADRPT ---
EXAM DATE/TIME: 05/14/2017 10:48 [facility] COMPARISON: No previous studies available for comparison. INDICATIONS : Bilateral leg pain. MEDICAL HISTORY : COPD. Dyspnea. GERD. Arthritis. Skin cancer. SURGICAL HISTORY : Cardiac cath. Vasectomy. Right knee surgery. Right wrist surgery. Right index finger surgery. ENCOUNTER: Initial ACUITY: 1 day PAIN SCORE: 0/10 LOCATION: Bilateral legs. TECHNIQUE: Venous ultrasound of the left and right leg was performed from the inguinal ligament to the proximal calf. Real-time, color Doppler and spectral tracing, compression and augmentation techniques were us ed. FINDINGS: RIGHT LEG: There is normal compressibility of the deep venous system from the inguinal region to the proximal ca lf. No echogenic clot is seen in the lumen of the common femoral, femoral, popliteal, and posterior tibial veins. There is a normal response of the venous system to proximal and distal augmentation an d respiration. LEFT LEG: There is normal compressibility of the deep venous system from the inguinal region to the proximal ca lf. No echogenic clot is seen in the lumen of the common femoral, femoral, popliteal, and posterior tibial veins. There is a normal response of the venous system to proximal and distal augmentation an d respiration. CONCLUSION: Negative for deep venous thrombosis. Simon Hines MD FACR on May 14, 2017 at 11:38 Board Certified Radiologist. This report was verified electronically.
== END 2017-05-14 11:57 | disposition home or self-care (01) ==
LOC: NEPK 09:41
DX: M79.605 Pain in left leg (principal); M79.604 Pain in right leg; M19.90 Unspecified osteoarthritis, unspecified site; J44.9 Chronic obstructive pulmonary disease, unspecified; F17.210 Nicotine dependence, cigarettes, uncomplicated; Z85.828 Personal history of other malignant neoplasm of skin
CPT/HCPCS: 80048; 82550; 83735; 85025; 93970; 99284

== ENCOUNTER 2017-07-01 14:48 | Inpatient (IN) | payer SELFPAY ==
[2017-07-01] VITALS (10 sets, daily range): BP systolic 133–161; BP diastolic 60–82; PULSE 65–135; RESP 12–25; TEMP 98.3–98.8; O2SAT 92–96
[~2017-07-01] VITALS: Ht 185.4 cm; Wt 81.0 kg
[2017-07-01] MEDS ORDERED: FLUT1INH INH (15:37)
[2017-07-01] MEDS ORDERED: methylPREDNISolone SOD SUCC 125 MG/2 ML VIAL IV PUSH ONE ×2 (15:45→19:30)
--- NOTE | 2017-07-01 15:45 | PD ---
HPI Chief Complaint: Respiratory Symptoms Time Seen by Provider: 15:20 Travel History International Travel<30 days: No Contact w/Intl Traveler<30days: No Traveled to known affect area: No History of Present Illness HPI This patient complains of shortness of breath. He has COPD and smokes. He is nebulizer dependent. He has a chronic cough productive of white phlegm. He has had gradual worsening shortness of breath over the last 3 days. No chest pain or syncope. Symptoms are severe. No alleviating factors. Symptoms exacerbated by continued smoking. 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 He arrives hypoxic and dyspneic and actively wheezing and short of breath. He arrives critically ill PFSH Past Medical History Arthritis: Yes Asthma: No Blood Disorders: No Bipolar Disorder: No Anxiety: Yes Depression: No Cancer: Yes (basal and squamous cell skin) Cardiac Catheterization: Yes (X2) Cardiovascular Problems: No High Cholesterol: No Chemotherapy: No COPD: Yes Diabetes: No Diminished Hearing: Yes (LEFT E[place]) Endocrine: No Gastrointestinal Disorders: Yes (GASTRIC REFLUX, esophageal spasms) GERD: Yes Genitourinary: No Immune Disorder: No Musculoskeletal: Yes Neurologic: No Psychiatric: No Reproductive: No Respiratory: Yes Radiation Therapy: No Sleep Apnea: No Tetanus Vaccination: < 5 Years Influenza Vaccination: No ?: Not Past Surgical History Genitourinary Surgery: Yes (Vasectomy 2001) Neurologic Surgery: No Other Surgery: Yes (R knee, R wrist, R index finger.) Social History Alcohol Use: No (OCCASIONAL) Tobacco Use: Yes Substance Use: No Allergies-Medications (Allergen,Severity, Reaction): Coded Allergies: No Known Allergies (Unverified , 07/01/17) Reported Meds & Prescriptions Reported Meds & Active Scripts Active Reported Breo Ellipta Inh (Fluticasone/Vilanterol) 100-25 Mcg/Act Inh 1 Puff INH DAILY Use daily at the same time. Albuterol Neb (Albuterol Sulfate) 2.5 Mg/0.5 Ml Neb 2.5 Mg NEB Q4HR NEB PRN Note: The Albuterol Sulfate Inhalation Solution is concentrated and must be diluted. Read complete instructions carefully before using. Ventolin Hfa 18 GM Inh (Albuterol Sulfate) 90 Mcg/Act Aer 1 Puff INH BID PRN Review of Systems General / Constitutional: No: Fever Eyes: No: Visual changes HENT: No: Headaches Cardiovascular: Positive: Tachycardia, No: Chest Pain or Discomfort Respiratory: Positive: Cough, Shortness of Breath, Wheezing Gastrointestinal: No: Abdominal Pain Genitourinary: No: Dysuria Musculoskeletal: No: Pain Skin: No Rash Neurologic: No: Weakness Psychiatric: No: Depression Endocrine: No: Polydipsia Hematologic/Lymphatic: No: Easy Bruising Physical Exam Narrative GENERAL: Well-nourished, well-developed patient in respiratory distress. SKIN: Focused skin assessment reveals no rash and nodules. Skin is Warm and dry. HEAD: Atraumatic. Normocephalic. EYES: Pupils equal and round. No scleral icterus. No injection or drainage. ENT: No nasal bleeding or discharge. Mucous membranes pink and moist. NECK: Trachea midline. No JVD. CARDIOVASCULAR: Regular rate and rhythm. No murmur appreciated. Tachycardic RESPIRATORY: Positive accessory muscle use. Diffuse expiratory wheezing. Breath sounds equal bilaterally. Elevated respiratory rate GASTROINTESTINAL: Abdomen soft, non-tender, nondistended. Hepatic and splenic margins not palpable. MUSCULOSKELETAL: No obvious deformities. No clubbing. No cyanosis. No edema. NEUROLOGICAL: Awake and alert. No obvious cranial nerve deficits. Motor grossly within normal limits. Normal speech. PSYCHIATRIC: Appropriate mood and affect; insight and judgment normal. Data Data Last Documented VS Vital Signs Date Time Temp Pulse Resp B/P (MAP) Pulse Ox O2 Delivery O2 Flow Rate FiO2 07/01/17 16:31 80 21 142/67 (92) 96 Nasal Cannula 2.00 07/01/17 15:03 98.8 Orders Orders Complete Blood Count With Diff (07/01/17 15:05) Basic Metabolic Panel (Bmp) (07/01/17 15:05) B-Type Natriuretic Peptide (07/01/17 15:05) Act Partial Throm Time (Ptt) (07/01/17 15:05) Prothrombin Time / Inr (Pt) (07/01/17 15:05) Magnesium (Mg) (07/01/17 15:05) Ckmb (Isoenzyme) Profile (07/01/17 15:05) Troponin I (07/01/17 15:05) Electrocardiogram (07/01/17 15:05) Chest, Pa & Lat (07/01/17 15:05) Methylprednisolone So Succ Inj (Solumedr (07/01/17 15:45) Albuterol-Ipratropium Neb (Duoneb Neb) (07/01/17 15:45) CKMB (07/01/17 15:25) CKMB% (07/01/17 15:25) Labs Laboratory Tests Test 07/01/17 15:25 White Blood Count 5.5 TH/MM3 Red Blood Count 5.03 MIL/MM3 Hemoglobin 14.8 GM/DL Hematocrit 43.6 % Mean Corpuscular Volume 86.8 FL Mean Corpuscular Hemoglobin 29.4 PG Mean Corpuscular Hemoglobin Concent 33.8 % Red Cell Distribution Width 13.1 % Platelet Count 176 TH/MM3 Mean Platelet Volume 7.0 FL Neutrophils (%) (Auto) 53.9 % Lymphocytes (%) (Auto) 30.1 % Monocytes (%) (Auto) 12.8 % Eosinophils (%) (Auto) 2.4 % Basophils (%) (Auto) 0.8 % Neutrophils # (Auto) 3.0 TH/MM3 Lymphocytes # (Auto) 1.7 TH/MM3 Monocytes # (Auto) 0.7 TH/MM3 Eosinophils # (Auto) 0.1 TH/MM3 Basophils # (Auto) 0.0 TH/MM3 CBC Comment DIFF FINAL Differential Comment Prothrombin Time 10.1 SEC Prothromb Time International Ratio 1.0 RATIO Activated Partial Thromboplast Time 28.2 SEC Blood Urea Nitrogen 16 MG/DL Creatinine 1.26 MG/DL Random Glucose 190 MG/DL Calcium Level 8.4 MG/DL Magnesium Level 2.1 MG/DL Sodium Level 139 MEQ/L Potassium Level 4.1 MEQ/L Chloride Level 102 MEQ/L Carbon Dioxide Level 29.5 MEQ/L Anion Gap 8 MEQ/L Estimat Glomerular Filtration Rate 59 ML/MIN Total Creatine Kinase 183 U/L Creatine Kinase MB 2.4 NG/ML B-Type Natriuretic Peptide 14 PG/ML [facility] Medical Decision Making Medical Screen Exam Complete: Yes Emergency Medical Condition: Yes Medical Record Reviewed: Yes Differential Diagnosis COPD exacerbation, pulmonary edema, pneumonia Narrative Course I have reviewed the patient's electronic medical record. This patient arrives short of breath and critically ill. He has hypoxic respiratory failure Saturations are in the upper 80s on room air He is placed on oxygen. IV placed. I gave him IV Solu-Medrol and a series of 3 nebulizer treatments I reviewed his chest x-ray which shows no pneumothorax or consolidation. There is hyperinflation consistent with chronic lung disease I reviewed his EKG Lab studies sent CBC and metabolic profiles reasonably normal. CK is normal. Awaiting troponin I Patient has some decent response to nebulizer treatments He has much less wheezing but still short of breath and wheezing and not stable for discharge When the oxygen is turned off he drops into the upper 80s. 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 I paged the hospitalist for admission Critical Care Narrative Aggregate critical care time was 35 minutes. Time to perform other separately billable procedures was not included in the critical care time. My time did not include minutes spent treating any other patients simultaneously or on activities that did not directly contribute to the patient's treatment. The services I provided to this patient were to treat and/or prevent clinically significant deterioration that could result in: Respiratory collapse, cardiopulmonary arrest, hypoxemic brain injury I provided critical care services requiring my management, as noted below: Chart data review, documentation time, medication orders and management, vital sign assessments/reviewing monitor data, ordering and reviewing lab tests, ordering and interpreting/reviewing x-rays and diagnostic studies, care of the patient and discussion of the patient with the admitting physicians. Diagnosis Primary Impression: Acute respiratory failure with hypoxia Additional Impression: COPD exacerbation Admitting Information Admitting Physician Requests: it Elliott Ordonez MD Jul 01, 2017 15:45
--- NOTE | 2017-07-01 15:50 | RADRPT ---
EXAM DATE/TIME: 07/01/2017 15:19 [facility] COMPARISON: CHEST SINGLE AP, December 25, 2015, 19:52. INDICATIONS : Shortness of breath. MEDICAL HISTORY : Chronic obstructive pulmonary disease. Gastroesophageal reflux disease. SURGICAL HISTORY : None. ENCOUNTER: Initial ACUITY: 1 week PAIN SCORE: 2/10 LOCATION: Bilateral chest FINDINGS: PA and lateral views of the chest demonstrate the lungs to be symmetrically aerated without evidence of mass, infiltrate or effusion. The cardiomediastinal contours are unremarkable. Osseous structure s are intact. CONCLUSION: No evidence of acute cardiopulmonary disease. Rangel De La Vega MD on July 01, 2017 at 15:47 Board Certified Radiologist. This report was verified electronically.
[2017-07-01] MEDS: RESP: ALBUTEROL 2.5 MG/IPRATROPIUM 0.5 MG NEB (SCH) INH ×2 (15:56→15:57)
[2017-07-01 15:57] LABS: BASOPHIL % 0.8 % (0.0-2.0); EOSINOPHIL # 0.1 TH/MM3 (0-0.4); EOSINOPHIL % 2.4 % (0.0-4.0); HEMATOCRIT 43.6 % (39.0-51.0); HEMOGLOBIN 14.8 GM/DL (13.0-17.0); LYMPH % 30.1 % (9.0-44.0); LYMPHOCYTE # 1.7 TH/MM3 (1.0-4.8); MEAN CELL VOLUME 86.8 FL (80.0-100.0); MEAN CORPUSCULAR HEMOGLOBIN 29.4 PG (27.0-34.0); MEAN CORPUSCULAR HGB CONC 33.8 % (32.0-36.0); MONO % 12.8 % (0.0-8.0); MONOCYTE # 0.7 TH/MM3 (0-0.9); NEUT % 53.9 % (16.0-70.0); PLATELET COUNT 176 TH/MM3 (150-450); RED BLOOD COUNT 5.03 MIL/MM3 (4.50-5.90); RED CELL DISTRIBUTION WIDTH 13.1 % (11.6-17.2); WHITE BLOOD COUNT 5.5 TH/MM3 (4.0-11.0)
[2017-07-01 15:59] LABS: PROTHROMBIN TIME - PATIENT 10.1 SEC (9.8-11.6)
[2017-07-01 16:29] LABS: BICARBONATE 29.5 MEQ/L (21.0-32.0); BLOOD UREA NITROGEN 16 MG/DL (7-18); CALCIUM 8.4 MG/DL (8.5-10.1); CHLORIDE 102 MEQ/L (98-107); CREATININE 1.26 MG/DL (0.60-1.30); GLOMERULAR FILTRATION RATE 59 ML/MIN (>89); GLUCOSE,RANDOM 190 MG/DL (74-106); MAGNESIUM 2.1 MG/DL (1.5-2.5); SODIUM (NA) 139 MEQ/L (136-145)
[2017-07-01 18:09] LABS: TROPONIN I LESS THAN 0.02 NG/ML (0.02-0.05)
[2017-07-01] MEDS ORDERED: NALOXONE HCL 0.4 MG/ML AMP IV PUSH PRN (18:45)
[2017-07-01] MEDS ORDERED: SODIUM CHLORIDE 0.9% FLUSH 10 ML FLUSH IV FLUSH PRN (18:45)
[2017-07-01] MEDS ORDERED: RESP: ALBUTEROL 2.5 MG/IPRATROPIUM 0.5 MG NEB (PRN) NEB (18:45)
--- NOTE | 2017-07-01 19:19 | HHI.HP ---
[facility] MD Admission Diagnosis acute hypoxic resp failure, exac of COPD Diagnoses: Travel History International Travel<30 Days: No Contact w/Intl Traveler <30 Da: No Traveled to Known Affected Are: No History of Present Illness History from patient, ER physician communication, and review of medical records. Patient reports that he has been short of breath for the past 1 week. He was coughing quite a lot and had copious whitish sputum production. He denies fever though. He went to his PCP Dr. Mal Strickland office and was prescribed prednisone and 2 different antibiotics. He reports that he finished the course just yesterday or so. He was not getting better and therefore he went to Dr. Strickland's office today. He reports that he was given a shot of antibiotic today at the office today. He was then told to come to the hospital. In the emergency room, patient was quite short of breath. He was placed on oxygen by nasal cannula 3 L. His case was discussed with Dr. Mal Strickland by ER physician. Dr. Strickland had deferred the [facility]. Patient denies having had any cultures drawn at outpatient clinic. He denies any chest pain. He reports that he had passed out a few times during these coughing episodes. He denies any nausea/vomiting/diarrhea/urinary burning or pain on urination. Denies any blood in his stool or in his urine. Patient denies any cuff muscles pains. Denies any prolonged travels. 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 Review of Systems Except as stated in HPI: all other systems reviewed are Neg Past Family Social History Past Medical History copd not on home oxygen hepatitis B hx of cholecystitis - still has gallbladder- was medically managed skin cancer- all over- not melanoma Past Surgical History skin cancer removal right knee sx right wrist sx right index finger Allergies: Coded Allergies: No Known Allergies (Unverified , 07/01/17) Family History mom ovarian cancer dad parkinsons middle brother- still alive, melanoma spread to skull Social History smokes about 3- 4 cigarrettes, has been smoking 45yrs no etoh abuse no drugs now- used to use about 35yrs ago- "everything under the sun" NEVER IV drugs Physical Exam Vital Signs Vital Signs Date Time Temp Pulse Resp B/P (MAP) Pulse Ox O2 Delivery O2 Flow Rate FiO2 07/01/17 16:31 80 21 142/67 (92) 96 Nasal Cannula 2.00 07/01/17 15:32 96 Nasal Cannula 2.00 07/01/17 15:32 93 25 157/77 (103) 96 Nasal Cannula 2.00 07/01/17 15:03 98.8 135 24 161/71 (101) 92 Physical Exam GENERAL: This is a well-nourished, well-developed patient, in moderate distress from dyspnea. Saturating 90% on 3 L nasal cannula. EYES: . No scleral icterus. No injection or drainage. ENT: Nose without bleeding, purulent drainage or septal hematoma.. Airway patent. NECK: Trachea midline. No JVD CARDIOVASCULAR: Regular rate and rhythm without murmurs, gallops, or rubs. RESPIRATORY: . Bilaterally tight air entry. No wheezes, rales, or rhonchi. GASTROINTESTINAL: Abdomen soft, non-tender, nondistended. . No guarding. MUSCULOSKELETAL: Extremities without clubbing, cyanosis, or edema.. No calf tenderness. NEUROLOGICAL: Awake and alert.Motor and sensory grossly within normal limits. Normal speech. Laboratory Laboratory Tests Test 07/01/17 15:25 White Blood Count 5.5 Red Blood Count 5.03 Hemoglobin 14.8 Hematocrit 43.6 Mean Corpuscular Volume 86.8 Mean Corpuscular Hemoglobin 29.4 Mean Corpuscular Hemoglobin Concent 33.8 Red Cell Distribution Width 13.1 Platelet Count 176 Mean Platelet Volume 7.0 Neutrophils (%) (Auto) 53.9 Lymphocytes (%) (Auto) 30.1 Monocytes (%) (Auto) 12.8 Eosinophils (%) (Auto) 2.4 Basophils (%) (Auto) 0.8 Neutrophils # (Auto) 3.0 Lymphocytes # (Auto) 1.7 Monocytes # (Auto) 0.7 Eosinophils # (Auto) 0.1 Basophils # (Auto) 0.0 CBC Comment DIFF FINAL Differential Comment Prothrombin Time 10.1 Prothromb Time International Ratio 1.0 Activated Partial Thromboplast Time 28.2 Blood Urea Nitrogen 16 Creatinine 1.26 Random Glucose 190 Calcium Level 8.4 Magnesium Level 2.1 Sodium Level 139 Potassium Level 4.1 Chloride Level 102 Carbon Dioxide Level 29.5 Anion Gap 8 Estimat Glomerular Filtration Rate 59 Total Creatine Kinase 183 Creatine Kinase MB 2.4 Troponin I LESS THAN 0.02 B-Type Natriuretic Peptide 14 Result Diagram: 07/01/17 1525 07/01/17 1525 Imaging Last 48 hours Impressions Chest X-Ray 07/01/17 1505 Signed Impressions: Service Date/Time: Saturday, July 01, 2017 15:19 - CONCLUSION: No evidence of acute cardiopulmonary disease. MD Betzy Garcia VTE Risk Assessment Caprinjuan VTE Risk Assessment: Mod/High Risk (score >= 2) Caprini Risk Assessment Model Point Value = 1 Point Value = 2 Point Value = 3 Point Value = 5 Age 41-60 Minor surgery BMI > 25 kg/m2 Swollen legs Varicose veins or History of unexplained or recurrent spontaneous Oral contraceptives or hormone replacement Sepsis (< 1 month) Serious lung disease, including pneumonia (< 1 month) Abnormal pulmonary function Acute myocardial infarction Congestive heart failure (< 1 month) History of inflammatory bowel disease Medical patient at bed rest Age 61-74 Arthroscopic surgery Major open surgery (> 45 min) Laparoscopic surgery (> 45 min) Malignancy Confined to bed (> 72 hours) Immobilizing plaster cast Central venous access Age >= 75 History of VTE Family history of VTE Factor V Leiden Prothrombin [id number] Lupus anticoagulant Anticardiolipin antibodies Elevated serum homocysteine Heparin-induced thrombocytopenia Other congenital or acquired thrombophilia Stroke (< 1 month) Elective arthroplasty Hip, pelvis, or leg fracture Acute spinal cord injury (< 1 month) Prophylaxis Regimen Total Risk Factor Score Risk Level Prophylaxis Regimen 0-1 Low Early ambulation 2 Moderate Order ONE of the following: *Sequential Compression Device (SCD) *Heparin 5000 units SQ BID 3-4 Higher Order ONE of the following medications: *Heparin 5000 units SQ TID *Enoxaparin/Lovenox 40 mg SQ daily (WT < 150 kg, CrCl > 30 mL/min) *Enoxaparin/Lovenox 30 mg SQ daily (WT < 150 kg, CrCl > 10-29 mL/min) *Enoxaparin/Lovenox 30 mg SQ BID (WT < 150 kg, CrCl > 30 mL/min) AND/OR *Sequential Compression Device (SCD) 5 or more Highest Order ONE of the following medications: *Heparin 5000 units SQ TID (Preferred with Epidurals) *Enoxaparin/Lovenox 40 mg SQ daily (WT < 150 kg, CrCl > 30 mL/min) *Enoxaparin/Lovenox 30 mg SQ daily (WT < 150 kg, CrCl > 10-29 mL/min) *Enoxaparin/Lovenox 30 mg SQ BID (WT < 150 kg, CrCl > 30 mL/min) AND *Sequential Compression Device (SCD) Assessment and Plan Assessment and Plan Impression: COPD exacerbation. Hypoxia. 90% on 3 L nasal cannula. Still quite dyspneic with significant work of breathing. Failed outpatient therapy. Was on 2 antibiotics as an outpatient and finished the course yesterday. He was also on steroids tapering doses. But yet he is still very tight on examination today. copd not on home oxygen hepatitis B hx of cholecystitis - still has gallbladder- was medically managed skin cancer- all over- not melanoma Plan: Give additional Solu-Medrol 125 mg IV 1 dose now. Gives a stat dose of nebulizer treatment now. Continue steroids at 40 mg IV every 6 hours. Nebulizers every 6 hours, and every 2 hours as needed. Start patient on levofloxacin 750 mg IV every 24 hours. BiPAP trial. To reduce work of breathing. Oxygen supplementation. Legionella and pneumococcal cultures. Sputum cultures. 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 DVT prophylaxis with Lovenox. GI prophylaxis on pantoprazole. Discussed Condition With Patient, ER physician, nursing staff Physician Certification 2 Midnight Certification Type: Admission for Inpatient Services Order for Inpatient Services The services are ordered in accordance with Medicare regulations or non- Medicare payer requirements, as applicable. In the case of services not specified as inpatient-only, they are appropriately provided as inpatient services in accordance with the 2-midnight benchmark. Estimated LOS (days): 3 days is the estimated time the patient will need to remain in the hospital, assuming treatment plan goals are met and no additional complications. Post-Hospital Plan: Home Jessica Toney MD Jul 01, 2017 19:19
[2017-07-01] MEDS: LEVOFLOXACIN 750 MG PREMIX INJ 150 ML IV SCH (19:59)
[2017-07-01] MEDS: RESP: ALBUTEROL 2.5 MG/IPRATROPIUM 0.5 MG NEB (SCH) NEB (20:01)
[2017-07-01] MEDS: SODIUM CHLORIDE 0.9% FLUSH 10 ML FLUSH IV FLUSH SCH (21:45)
[2017-07-01] MEDS ORDERED: IOHEXOL 350 MG/ML 10 ML VIAL (for RAD DIAG) IVCONTRAST ONE (22:34)
--- NOTE | 2017-07-01 22:49 | RADRPT ---
EXAM DATE/TIME: 07/01/2017 22:24 [place] COMPARISON: No previous studies available for comparison. INDICATIONS : Shortness of breath. IV CONTRAST: 75 cc Omnipaque 350 (iohexol) IV RADIATION DOSE: 9.29 CTDIvol (mGy) MEDICAL HISTORY : Chronic obstructive pulmonary disease. SURGICAL HISTORY : Cardiac cath. ENCOUNTER: Initial ACUITY: 1 day PAIN SCALE: 0/10 LOCATION: chest TECHNIQUE: Volumetric scanning of the chest was performed using a pulmonary embolism protocol MIP images were re constructed. Using automated exposure control and adjustment of the mA and/or kV according to patien t size, radiation dose was kept as low as reasonably achievable to obtain optimal diagnostic quality images. DICOM format image data is available electronically for review and comparison. Follow-up recommendations for detected pulmonary nodules are based at a minimum on nodule size and pa tient risk factors according to Fleischner Society Guidelines. FINDINGS: No filling defects to suggest pulmonary embolic disease. Mild peribronchial thickening and mild cylin drical bronchiectasis is present the lung bases. There is also mild distal airway disease. No effusio ns. Borderline enlarged hilar and mediastinal lymph nodes. No acute findings in the upper abdomen. CONCLUSION: 1. Negative for pulmonary embolus. 2. Fairly extensive peribronchial thickening with mild bronchiectasis at the lung bases and distal ai rway disease. Srinivasan Bustamante MD on July 01, 2017 at 22:42 Board Certified Radiologist. This report was verified electronically.
[2017-07-02] VITALS (31 sets, daily range): BP systolic 126–145; BP diastolic 66–79; PULSE 58–118; RESP 16–22; TEMP 96.6–98.1; O2SAT 89–98
[2017-07-02] MEDS: methylPREDNISolone SOD SUCC 40 MG/1 ML VIAL IV PUSH SCH ×5 (00:27→23:03)
[2017-07-02] MEDS: RESP: ALBUTEROL 2.5 MG/IPRATROPIUM 0.5 MG NEB (SCH) NEB ×4 (03:11→20:48)
[2017-07-02 06:34] LABS: AUTOMATED NEUTROPHIL # 2.9 TH/MM3 (1.8-7.7); BASOPHIL % 0.2 % (0.0-2.0); HEMATOCRIT 41.9 % (39.0-51.0); LYMPH % 14.5 % (9.0-44.0); LYMPHOCYTE # 0.5 TH/MM3 (1.0-4.8); MEAN CELL VOLUME 86.8 FL (80.0-100.0); MEAN CORPUSCULAR HEMOGLOBIN 29.1 PG (27.0-34.0); MEAN CORPUSCULAR HGB CONC 33.5 % (32.0-36.0); MEAN PLATELET VOLUME 7.1 FL (7.0-11.0); MONO % 2.2 % (0.0-8.0); MONOCYTE # 0.1 TH/MM3 (0-0.9); NEUT % 83.1 % (16.0-70.0); PLATELET COUNT 176 TH/MM3 (150-450); RED BLOOD COUNT 4.83 MIL/MM3 (4.50-5.90); WHITE BLOOD COUNT 3.5 TH/MM3 (4.0-11.0)
[2017-07-02 07:06] LABS: BICARBONATE 26.8 MEQ/L (21.0-32.0); CALCIUM 8.5 MG/DL (8.5-10.1); CREATININE 0.89 MG/DL (0.60-1.30)
--- NOTE | 2017-07-02 08:05 | EKG ---
Date Performed: 07/01/2017 Time Performed: 18:02:54 PTAGE: 57 years EKG: Sinus rhythm NORMAL ECG NO PREVIOUS TRACING DOCTOR: Jorge Alberto Peters Interpretating Date/Time 07/02/2017 08:04:59
[2017-07-02] MEDS: PANTOPRAZOLE SOD 40 MG DELAYED RELEASE TAB PO SCH (08:12)
[2017-07-02] MEDS: ENOXAPARIN SODIUM 40 MG/0.4 ML SYRINGE SQ SCH (08:13)
[2017-07-02] MEDS: SODIUM CHLORIDE 0.9% FLUSH 10 ML FLUSH IV FLUSH SCH ×2 (08:13→20:56)
--- NOTE | 2017-07-02 12:59 | HHI.PR ---
Subjective Remarks History of Present Illness History from patient, ER physician communication, and review of medical records. Patient reports that he has been short of breath for the past 1 week. He was coughing quite a lot and had copious whitish sputum production. He denies fever though. He went to his PCP Dr. Mal Strickland office and was prescribed prednisone and 2 different antibiotics. He reports that he finished the course just yesterday or so. He was not getting better and therefore he went to Dr. Strickland's office today. He reports that he was given a shot of antibiotic today at the office today. He was then told to come to the hospital. In the emergency room, patient was quite short of breath. He was placed on oxygen by nasal cannula 3 L. His case was discussed with Dr. Mal Strickland by ER physician. Dr. Strickland had deferred the admission to [facility]. Patient denies having had any cultures drawn at outpatient clinic. He denies any chest pain. He reports that he had passed out a few times during these coughing episodes. He denies any nausea/vomiting/diarrhea/urinary burning or pain on urination. Denies any blood in his stool or in his urine. Patient denies any cuff muscles pains. Denies any prolonged travels. 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 4-4 patient states he is breathing a little better today States he normally smokes 1-1/2 packs of cigarettes a day for at least 45 years has lately cut down to less than a half a pack But was still smoking coming into the hospital Less short of breath Still actively wheezing Discussed with patient and RN and case management Objective Vitals Vital Signs Date Time Temp Pulse Resp B/P (MAP) Pulse Ox O2 Delivery O2 Flow Rate FiO2 07/02/17 09:14 93 Nasal Cannula 3.00 07/02/17 09:00 61 07/02/17 08:00 81 07/02/17 08:00 97.9 80 16 132/76 (94) 98 07/02/17 08:00 98 Nasal Cannula 2.00 07/02/17 07:00 80 07/02/17 06:32 61 07/02/17 05:11 59 07/02/17 04:18 61 07/02/17 03:17 94 Nasal Cannula 2.00 07/02/17 03:17 98.1 65 22 145/71 (95) 94 07/02/17 03:00 58 07/02/17 02:21 63 07/02/17 01:03 63 07/02/17 00:16 65 07/01/17 23:26 94 Nasal Cannula 3.00 07/01/17 23:26 98.4 82 23 141/82 (101) 94 07/01/17 23:00 65 07/01/17 22:00 74 07/01/17 21:28 98.3 70 24 146/73 (97) 96 07/01/17 21:28 96 Room Air 3.00 Nasal Cannula 07/01/17 20:20 96 Nasal Cannula 3.00 07/01/17 20:01 78 12 133/60 (84) 96 BiPAP 35 07/01/17 19:50 96 35 07/01/17 19:50 96 BiPAP 35 07/01/17 16:31 80 21 142/67 (92) 96 Nasal Cannula 2.00 07/01/17 15:32 96 Nasal Cannula 2.00 07/01/17 15:32 93 25 157/77 (103) 96 Nasal Cannula 2.00 07/01/17 15:03 98.8 135 24 161/71 (101) 92 I/O 07/01/17 07/01/17 07/01/17 07/02/17 07/02/17 07/02/17 07:00 15:00 23:00 07:00 15:00 23:00 Intake Total 150 ml 720 ml Output Total 900 ml Balance 150 ml -180 ml Intake Oral 720 ml IV Total 150 ml Output Urine Total 900 ml Result Diagram: 07/02/17 0516 07/02/17 0516 Other Results Laboratory Tests Test 07/01/17 15:25 07/01/17 19:41 07/02/17 05:16 White Blood Count 5.5 TH/MM3 3.5 TH/MM3 Red Blood Count 5.03 MIL/MM3 4.83 MIL/MM3 Hemoglobin 14.8 GM/DL 14.0 GM/DL Hematocrit 43.6 % 41.9 % Mean Corpuscular Volume 86.8 FL 86.8 FL Mean Corpuscular Hemoglobin 29.4 PG 29.1 PG Mean Corpuscular Hemoglobin Concent 33.8 % 33.5 % Red Cell Distribution Width 13.1 % 13.0 % Platelet Count 176 TH/MM3 176 TH/MM3 Mean Platelet Volume 7.0 FL 7.1 FL Neutrophils (%) (Auto) 53.9 % 83.1 % Lymphocytes (%) (Auto) 30.1 % 14.5 % Monocytes (%) (Auto) 12.8 % 2.2 % Eosinophils (%) (Auto) 2.4 % 0.0 % Basophils (%) (Auto) 0.8 % 0.2 % Neutrophils # (Auto) 3.0 TH/MM3 2.9 TH/MM3 Lymphocytes # (Auto) 1.7 TH/MM3 0.5 TH/MM3 Monocytes # (Auto) 0.7 TH/MM3 0.1 TH/MM3 Eosinophils # (Auto) 0.1 TH/MM3 0.0 TH/MM3 Basophils # (Auto) 0.0 TH/MM3 0.0 TH/MM3 CBC Comment DIFF FINAL DIFF FINAL Differential Comment Prothrombin Time 10.1 SEC Prothromb Time International Ratio 1.0 RATIO Activated Partial Thromboplast Time 28.2 SEC Blood Urea Nitrogen 16 MG/DL 17 MG/DL Creatinine 1.26 MG/DL 0.89 MG/DL Random Glucose 190 MG/DL 164 MG/DL Calcium Level 8.4 MG/DL 8.5 MG/DL Magnesium Level 2.1 MG/DL Sodium Level 139 MEQ/L 139 MEQ/L Potassium Level 4.1 MEQ/L 4.4 MEQ/L Chloride Level 102 MEQ/L 104 MEQ/L Carbon Dioxide Level 29.5 MEQ/L 26.8 MEQ/L Anion Gap 8 MEQ/L 8 MEQ/L Estimat Glomerular Filtration Rate 59 ML/MIN 88 ML/MIN Total Creatine Kinase 183 U/L Creatine Kinase MB 2.4 NG/ML Troponin I LESS THAN 0.02 NG/ML B-Type Natriuretic Peptide 14 PG/ML D-Dimer Quantitative (PE/DVT) 0.58 MG/L FEU Imaging Last Impressions Chest X-Ray 07/01/17 1505 Signed Impressions: Service Date/Time: Saturday, July 01, 2017 15:19 - CONCLUSION: No evidence of acute cardiopulmonary disease. Rangel De La Vega MD CT Angiography 07/01/17 0000 Signed Impressions: Service Date/Time: Saturday, July 01, 2017 22:24 - CONCLUSION: 1. Negative for pulmonary embolus. 2. Fairly extensive peribronchial thickening with mild bronchiectasis at the lung bases and distal airway disease. Srinivasan Bustamante MD Objective Remarks GENERAL: Awake alert and oriented 3 talkative and cooperative SKIN: Warm and dry. HEAD: Atraumatic. Normocephalic. EYES: Pupils equal and round. No scleral icterus. No injection or drainage. Extraocular muscles intact ENT: No nasal bleeding or discharge. Mucous membranes pink and moist. Tongue is midline NECK: Trachea midline. No JVD. Supple CARDIOVASCULAR: Regular rate and rhythm. S1-S2 no S3 or S4 no heave or thrill or rub or gallops RESPIRATORY: No accessory muscle use rhonchi and wheezes bilaterally throughout all lung butler breath sounds equal bilaterally. GASTROINTESTINAL: Abdomen soft, non-tender, nondistended. Hepatic and splenic margins not palpable. MUSCULOSKELETAL: Extremities without clubbing, cyanosis, or edema. No obvious deformities. NEUROLOGICAL: Awake and alert. No obvious cranial nerve deficits. Motor grossly within normal limits. Five out of 5 muscle strength in the arms and legs. Normal speech. PSYCHIATRIC: Appropriate mood and affect; insight and judgment normal. Medications and IVs Current Medications Methylprednisolone Sodium Succinate (SoluMEDROL INJ) 125 mg ONCE ONCE IV PUSH Last administered on 07/01/17at 16:30; Start 07/01/17 at 15:45; Stop 07/01/17 at 15: 46; Status DC Albuterol/ Ipratropium (Duoneb Neb) 1 ampule Q15M INH Last administered on at 15:57; Start 07/01/17 at 15:45; Stop 07/01/17 at 16:16; Status DC Sodium Chloride (NS Flush) 2 ml UNSCH PRN IV FLUSH FLUSH AFTER USING IV ACCESS ; Start 07/01/17 at 18:45 Sodium Chloride (NS Flush) 2 ml BID IV FLUSH Last administered on 07/02/17at 08: 13; Start 07/01/17 at 21:00 Naloxone HCl (Narcan Inj) 0.4 mg UNSCH PRN IV PUSH SEE LABEL COMMENTS; Start at 18:45 Albuterol/ Ipratropium (Duoneb Neb) 1 ampule Q6HR NEB NEB Last administered on 07/02/17at 09:11; Start 07/01/17 at 22:00 Albuterol/ Ipratropium (Duoneb Neb) 1 ampule Q2HR NEB PRN NEB wheezing; Start 07/01/17 at 18:45 Methylprednisolone Sodium Succinate (SoluMEDROL INJ) 40 mg Q6HR IV PUSH Last administered on 07/02/17at 05:15; Start 07/02/17 at 00:00 Pantoprazole Sodium (Protonix) 40 mg DAILY PO Last administered on 07/02/17at 08: 12; Start 07/02/17 at 09:00 Levofloxacin/ Dextrose 150 ml @ 100 mls/hr Q24H IV Last administered on at 19:59; Start 07/01/17 at 20:00 Methylprednisolone Sodium Succinate (SoluMEDROL INJ) 125 mg ONCE ONCE IV PUSH Last administered on 07/01/17at 19:59; Start 07/01/17 at 19:30; Stop 07/01/17 at 19: 32; Status DC Enoxaparin Sodium (Lovenox Inj) 40 mg DAILY SQ Last administered on 07/02/17at 08 :13; Start 07/02/17 at 09:00 Iohexol (Omnipaque 350 Inj) 75 ml STK-MED ONCE IVCONTRAST Last administered on 07/01/17at 22:34; Start 07/01/17 at 22:34; Stop 07/01/17 at 22:35; Status DC A/P Assessment and Plan Impression: COPD exacerbation. Hypoxia. 90% on 3 L nasal cannula. Still quite dyspneic with significant work of breathing. Failed outpatient therapy. Was on 2 antibiotics as an outpatient and finished the course yesterday. He was also on steroids tapering doses. But yet he is still very tight on examination today. copd not on home oxygen hepatitis B hx of cholecystitis - still has gallbladder- was medically managed skin cancer- all over- not melanoma Plan: Give additional Solu-Medrol 125 mg IV 1 dose now. Gives a stat dose of nebulizer treatment now. Continue steroids at 40 mg IV every 6 hours. Nebulizers every 6 hours, and every 2 hours as needed. Start patient on levofloxacin 750 mg IV every 24 hours. BiPAP trial. To reduce work of breathing. Oxygen supplementation. Legionella and pneumococcal cultures. Sputum cultures. 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 DVT prophylaxis with Lovenox. GI prophylaxis on pantoprazole. Smoking cessation recommended NicoDerm patch as needed Discharge Planning Pending improved aeration and breathing Simon Cameron DO Jul 02, 2017 12:59
[2017-07-02] MEDS ORDERED: ZOLPIDEM TARTRATE 5 MG TAB PO PRN (13:15)
[2017-07-02] MEDS ORDERED: ACETAMINOPHEN 325 MG TAB PO PRN ×2 (13:15)
[2017-07-02] MEDS ORDERED: SENNOSIDES 8.6 MG TAB PO PRN (13:15)
[2017-07-02] MEDS ORDERED: BISACODYL 10 MG SUPP RECTAL PRN (13:15)
[2017-07-02] MEDS ORDERED: METOCLOPRAMIDE HCL 10 MG/2 ML VIAL IV PUSH PRN (13:15)
[2017-07-02] MEDS ORDERED: NALOXONE HCL 0.4 MG/ML AMP IV PUSH PRN (13:15)
[2017-07-02] MEDS ORDERED: oxyCODONE/ACETAMINOPHEN 10 MG/325 MG TAB PO PRN (13:15)
[2017-07-02] MEDS ORDERED: MAGNESIUM HYDROXIDE SUSP 30 ML CUP PO PRN (13:15)
[2017-07-02] MEDS ORDERED: LACTULOSE SYRUP 20 GM/30 ML CUP PO PRN (13:15)
[2017-07-02] MEDS ORDERED: oxyCODONE/ACETAMINOPHEN 5 MG/325 MG TAB PO PRN (13:15)
[2017-07-02] MEDS ORDERED: ONDANSETRON HCL 4 MG/2 ML VIAL IVP PRN (13:15)
[2017-07-02] MEDS ORDERED: MORPHINE SULFATE 2 MG/ML SYRINGE IV PUSH PRN ×2 (13:15)
[2017-07-02] MEDS: guaiFENesin E.R. 600 MG TAB PO SCH ×2 (14:16→20:55)
[2017-07-02] MEDS ORDERED: NICOTINE 14 MG/24 HR PATCH T-DERMAL ONE (15:00)
[2017-07-02] MEDS: BUDESONIDE-FORMOTEROL 160/4.5 MCG INHALER INH SCH (20:54)
[2017-07-02] MEDS: LEVOFLOXACIN 750 MG PREMIX INJ 150 ML IV SCH (20:54)
[2017-07-02] MEDS: DOCUSATE SODIUM 50 MG/SENNA 8.6 MG TAB PO SCH (20:55)
[2017-07-03] VITALS (20 sets, daily range): BP systolic 126–145; BP diastolic 68–75; PULSE 64–100; RESP 18–22; TEMP 97.9–98.7; O2SAT 92–96
[2017-07-03] MEDS: RESP: ALBUTEROL 2.5 MG/IPRATROPIUM 0.5 MG NEB (SCH) NEB ×3 (02:39→16:48)
[2017-07-03] MEDS: methylPREDNISolone SOD SUCC 40 MG/1 ML VIAL IV PUSH SCH ×2 (05:50→14:53)
[2017-07-03 07:09] LABS: AUTOMATED NEUTROPHIL # 11.7 TH/MM3 (1.8-7.7); BASOPHIL % 0.1 % (0.0-2.0); HEMATOCRIT 41.3 % (39.0-51.0); HEMOGLOBIN 13.7 GM/DL (13.0-17.0); LYMPH % 5.7 % (9.0-44.0); LYMPHOCYTE # 0.7 TH/MM3 (1.0-4.8); MEAN CORPUSCULAR HEMOGLOBIN 28.8 PG (27.0-34.0); MEAN CORPUSCULAR HGB CONC 33.1 % (32.0-36.0); MEAN PLATELET VOLUME 7.1 FL (7.0-11.0); MONO % 2.7 % (0.0-8.0); MONOCYTE # 0.3 TH/MM3 (0-0.9); NEUT % 91.5 % (16.0-70.0); PLATELET COUNT 202 TH/MM3 (150-450); RED BLOOD COUNT 4.75 MIL/MM3 (4.50-5.90); WHITE BLOOD COUNT 12.8 TH/MM3 (4.0-11.0)
[2017-07-03 07:18] LABS: ALBUMIN 2.9 GM/DL (3.4-5.0); AST (GOT) 18 U/L (15-37); BICARBONATE 28.1 MEQ/L (21.0-32.0); BLOOD UREA NITROGEN 22 MG/DL (7-18); CALCIUM 8.8 MG/DL (8.5-10.1); CHLORIDE 102 MEQ/L (98-107); GLOMERULAR FILTRATION RATE 77 ML/MIN (>89); GLUCOSE,RANDOM 143 MG/DL (74-106); MAGNESIUM 2.2 MG/DL (1.5-2.5); SODIUM (NA) 139 MEQ/L (136-145)
[2017-07-03 07:30] LABS: ALKALINE PHOSPHATASE 48 U/L (45-117); ALT (GPT) 19 U/L (12-78); FREE T4 0.89 NG/DL (0.76-1.46); PHOSPHORUS 3.4 MG/DL (2.5-4.9); TOTAL BILIRUBIN ADULT 0.2 MG/DL (0.2-1.0); TOTAL PROTEIN 6.9 GM/DL (6.4-8.2)
[2017-07-03] MEDS: ENOXAPARIN SODIUM 40 MG/0.4 ML SYRINGE SQ SCH (08:39)
[2017-07-03] MEDS: BUDESONIDE-FORMOTEROL 160/4.5 MCG INHALER INH SCH (08:39)
[2017-07-03] MEDS: DOCUSATE SODIUM 50 MG/SENNA 8.6 MG TAB PO SCH (08:39)
[2017-07-03] MEDS: PANTOPRAZOLE SOD 40 MG DELAYED RELEASE TAB PO SCH (08:39)
[2017-07-03] MEDS: guaiFENesin E.R. 600 MG TAB PO SCH (08:39)
[2017-07-03] MEDS: SODIUM CHLORIDE 0.9% FLUSH 10 ML FLUSH IV FLUSH SCH (08:40)
[2017-07-03] MEDS ORDERED: NICOTINE 14 MG/24 HR PATCH T-DERMAL SCH (09:00)
[2017-07-03] MEDS ORDERED: REMOVE OLD PATCH T-DERMAL SCH (09:00)
--- NOTE | 2017-07-03 15:18 | HHI.PR ---
Subjective Remarks History from patient, ER physician communication, and review of medical records. Patient reports that he has been short of breath for the past 1 week. He was coughing quite a lot and had copious whitish sputum production. He denies fever though. He went to his PCP Dr. Mal Strickland office and was prescribed prednisone and 2 different antibiotics. He reports that he finished the course just yesterday or so. He was not getting better and therefore he went to Dr. Strickland's office today. He reports that he was given a shot of antibiotic today at the office today. He was then told to come to the hospital. In the emergency room, patient was quite short of breath. He was placed on oxygen by nasal cannula 3 L. His case was discussed with Dr. Mal Strickland by ER physician. Dr. Strickland had deferred the admission to [facility]. Patient denies having had any cultures drawn at outpatient clinic. He denies any chest pain. He reports that he had passed out a few times during these coughing episodes. He denies any nausea/vomiting/diarrhea/urinary burning or pain on urination. Denies any blood in his stool or in his urine. Patient denies any cuff muscles pains. Denies any prolonged travels. 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 4-4 patient states he is breathing a little better today States he normally smokes 1-1/2 packs of cigarettes a day for at least 45 years has lately cut down to less than a half a pack But was still smoking coming into the hospital Less short of breath Still actively wheezing Discussed with patient and RN and case management 4-5 patient states that he wants to go home States he is breathing better States he will decrease smoking States he has a nebulizer at home Needs solution and antibiotics and medications Wants to [facility] Will discharge him to home today Objective Vitals Vital Signs Date Time Temp Pulse Resp B/P (MAP) Pulse Ox O2 Delivery O2 Flow Rate FiO2 07/03/17 15:07 96 Room Air 07/03/17 15:04 70 22 145/75 (98) 96 07/03/17 14:00 68 07/03/17 13:00 70 07/03/17 12:00 93 Room Air 07/03/17 12:00 98.7 78 20 137/68 (91) 93 07/03/17 12:00 68 07/03/17 11:00 70 07/03/17 10:00 76 07/03/17 09:39 92 21 07/03/17 09:00 92 Room Air 07/03/17 09:00 76 07/03/17 08:35 97.9 66 18 126/70 (88) 92 07/03/17 08:00 78 07/03/17 07:00 100 07/03/17 05:07 75 07/03/17 04:16 75 07/03/17 03:06 98.1 87 21 130/73 (92) 93 07/03/17 03:00 81 07/03/17 02:13 69 07/03/17 01:00 64 07/03/17 00:00 72 07/02/17 23:19 98.0 78 22 130/70 (90) 92 07/02/17 23:00 68 07/02/17 22:28 68 07/02/17 21:34 78 07/02/17 20:46 92 Nasal Cannula 2.00 07/02/17 20:00 76 07/02/17 19:30 92 Room Air 07/02/17 19:30 97.8 75 22 133/68 (89) 92 07/02/17 19:00 81 07/02/17 18:03 82 07/02/17 17:00 80 07/02/17 16:00 80 07/02/17 15:30 96.6 98 22 130/66 (87) 89 I/O 07/02/17 07/02/17 07/02/17 07/03/17 07/03/17 07/03/17 07:00 15:00 23:00 07:00 15:00 23:00 Intake Total 720 ml 870 ml 960 ml Output Total 900 ml 850 ml 850 ml Balance -180 ml 20 ml 110 ml Intake Oral 720 ml 720 ml 960 ml IV Total 150 ml Output Urine Total 900 ml 850 ml 850 ml # Bowel Movements 1 Result Diagram: 07/03/17 0538 07/03/17 0538 Other Results Laboratory Tests Test 07/01/17 15:25 07/01/17 19:41 07/02/17 05:16 07/03/17 05:38 White Blood Count 5.5 TH/MM3 3.5 TH/MM3 12.8 TH/MM3 Red Blood Count 5.03 MIL/MM3 4.83 MIL/MM3 4.75 MIL/MM3 Hemoglobin 14.8 GM/DL 14.0 GM/DL 13.7 GM/DL Hematocrit 43.6 % 41.9 % 41.3 % Mean Corpuscular Volume 86.8 FL 86.8 FL 87.0 FL Mean Corpuscular Hemoglobin 29.4 PG 29.1 PG 28.8 PG Mean Corpuscular Hemoglobin Concent 33.8 % 33.5 % 33.1 % Red Cell Distribution Width 13.1 % 13.0 % 13.0 % Platelet Count 176 TH/MM3 176 TH/MM3 202 TH/MM3 Mean Platelet Volume 7.0 FL 7.1 FL 7.1 FL Neutrophils (%) (Auto) 53.9 % 83.1 % 91.5 % Lymphocytes (%) (Auto) 30.1 % 14.5 % 5.7 % Monocytes (%) (Auto) 12.8 % 2.2 % 2.7 % Eosinophils (%) (Auto) 2.4 % 0.0 % 0.0 % Basophils (%) (Auto) 0.8 % 0.2 % 0.1 % Neutrophils # (Auto) 3.0 TH/MM3 2.9 TH/MM3 11.7 TH/MM3 Lymphocytes # (Auto) 1.7 TH/MM3 0.5 TH/MM3 0.7 TH/MM3 Monocytes # (Auto) 0.7 TH/MM3 0.1 TH/MM3 0.3 TH/MM3 Eosinophils # (Auto) 0.1 TH/MM3 0.0 TH/MM3 0.0 TH/MM3 Basophils # (Auto) 0.0 TH/MM3 0.0 TH/MM3 0.0 TH/MM3 CBC Comment DIFF FINAL DIFF FINAL DIFF FINAL Differential Comment Prothrombin Time 10.1 SEC Prothromb Time International Ratio 1.0 RATIO Activated Partial Thromboplast Time 28.2 SEC Blood Urea Nitrogen 16 MG/DL 17 MG/DL 22 MG/DL Creatinine 1.26 MG/DL 0.89 MG/DL 1.00 MG/DL Random Glucose 190 MG/DL 164 MG/DL 143 MG/DL Calcium Level 8.4 MG/DL 8.5 MG/DL 8.8 MG/DL Magnesium Level 2.1 MG/DL 2.2 MG/DL Sodium Level 139 MEQ/L 139 MEQ/L 139 MEQ/L Potassium Level 4.1 MEQ/L 4.4 MEQ/L 4.3 MEQ/L Chloride Level 102 MEQ/L 104 MEQ/L 102 MEQ/L Carbon Dioxide Level 29.5 MEQ/L 26.8 MEQ/L 28.1 MEQ/L Anion Gap 8 MEQ/L 8 MEQ/L 9 MEQ/L Estimat Glomerular Filtration Rate 59 ML/MIN 88 ML/MIN 77 ML/MIN Total Creatine Kinase 183 U/L Creatine Kinase MB 2.4 NG/ML Troponin I LESS THAN 0.02 NG/ML B-Type Natriuretic Peptide 14 PG/ML D-Dimer Quantitative (PE/DVT) 0.58 MG/L FEU Total Protein 6.9 GM/DL Albumin 2.9 GM/DL Phosphorus Level 3.4 MG/DL Alkaline Phosphatase 48 U/L Aspartate Amino Transf (AST/SGOT) 18 U/L Alanine Aminotransferase (ALT/SGPT) 19 U/L Total Bilirubin 0.2 MG/DL Free Thyroxine 0.89 NG/DL Thyroid Stimulating Hormone 3rd Gen 0.207 uIU/ML Imaging Last Impressions Chest X-Ray 07/01/17 1505 Signed Impressions: Service Date/Time: Saturday, July 01, 2017 15:19 - CONCLUSION: No evidence of acute cardiopulmonary disease. Rangel De La Vega MD CT Angiography 07/01/17 0000 Signed Impressions: Service Date/Time: Saturday, July 01, 2017 22:24 - CONCLUSION: 1. Negative for pulmonary embolus. 2. Fairly extensive peribronchial thickening with mild bronchiectasis at the lung bases and distal airway disease. Srinivasan Bustamante MD Objective Remarks GENERAL: Awake alert and oriented 3 talkative and cooperative SKIN: Warm and dry. HEAD: Atraumatic. Normocephalic. EYES: Pupils equal and round. No scleral icterus. No injection or drainage. Extraocular muscles intact ENT: No nasal bleeding or discharge. Mucous membranes pink and moist. Tongue is midline NECK: Trachea midline. No JVD. Supple CARDIOVASCULAR: Regular rate and rhythm. S1-S2 no S3 or S4 no heave or thrill or rub or gallops RESPIRATORY: No accessory muscle use less rhonchi and wheezes bilaterally throughout all lung butler breath sounds equal bilaterally. GASTROINTESTINAL: Abdomen soft, non-tender, nondistended. Hepatic and splenic margins not palpable. MUSCULOSKELETAL: Extremities without clubbing, cyanosis, or edema. No obvious deformities. NEUROLOGICAL: Awake and alert. No obvious cranial nerve deficits. Motor grossly within normal limits. Five out of 5 muscle strength in the arms and legs. Normal speech. PSYCHIATRIC: Appropriate mood and affect; insight and judgment normal. Procedures none Medications and IVs Current Medications Methylprednisolone Sodium Succinate (SoluMEDROL INJ) 125 mg ONCE ONCE IV PUSH Last administered on 07/01/17 16:30; Start 07/01/17 at 15:45; Stop 07/01/17 at 15: 46; Status DC Albuterol/ Ipratropium (Duoneb Neb) 1 ampule Q15M INH Last administered on 15:57; Start 07/01/17 at 15:45; Stop 07/01/17 at 16:16; Status DC Sodium Chloride (NS Flush) 2 ml UNSCH PRN IV FLUSH FLUSH AFTER USING IV ACCESS ; Start 07/01/17 at 18:45 Sodium Chloride (NS Flush) 2 ml BID IV FLUSH Last administered on 07/03/17 08: 40; Start 07/01/17 at 21:00 Naloxone HCl (Narcan Inj) 0.4 mg UNSCH PRN IV PUSH SEE LABEL COMMENTS; Start at 18:45; Stop 07/02/17 at 13:46; Status DC Albuterol/ Ipratropium (Duoneb Neb) 1 ampule Q6HR NEB NEB Last administered on 07/02/17 09:11; Start 07/01/17 at 22:00; Stop 07/02/17 at 13:46; Status DC Albuterol/ Ipratropium (Duoneb Neb) 1 ampule Q2HR NEB PRN NEB wheezing; Start 07/01/17 at 18:45 Methylprednisolone Sodium Succinate (SoluMEDROL INJ) 40 mg Q6HR IV PUSH Last administered on 07/03/17 14:53; Start 07/02/17 at 00:00 Pantoprazole Sodium (Protonix) 40 mg DAILY PO Last administered on 07/03/17 08: 39; Start 07/02/17 at 09:00 Levofloxacin/ Dextrose 150 ml @ 100 mls/hr Q24H IV Last administered on 20:54; Start 07/01/17 at 20:00 Methylprednisolone Sodium Succinate (SoluMEDROL INJ) 125 mg ONCE ONCE IV PUSH Last administered on 07/01/17at 19:59; Start 07/01/17 at 19:30; Stop 07/01/17 at 19: 32; Status DC Enoxaparin Sodium (Lovenox Inj) 40 mg DAILY SQ Last administered on 07/03/17at 08 :39; Start 07/02/17 at 09:00 Iohexol (Omnipaque 350 Inj) 75 ml STK-MED ONCE IVCONTRAST Last administered on 07/01/17at 22:34; Start 07/01/17 at 22:34; Stop 07/01/17 at 22:35; Status DC Guaifenesin (Mucinex Er) 600 mg BID PO Last administered on 07/03/17at 08:39; Start 07/02/17 at 13:45 Albuterol/ Ipratropium (Duoneb Neb) 1 ampule Q6HR NEB NEB Last administered on 07/03/17at 09:38; Start 07/02/17 at 16:00 Acetaminophen (Tylenol) 650 mg Q4H PRN PO TEMP > 100.4; Start 07/02/17 at 13:15 Ondansetron HCl (Zofran Inj) 4 mg Q6H PRN IVP NAUSEA OR VOMITING; Start at 13:15 Metoclopramide HCl (Reglan Inj) 5 mg Q6H PRN IV PUSH NAUSEA OR VOMITING; Start 07/02/17 at 13:15 Zolpidem Tartrate (Ambien) 5 mg HS PRN PO INSOMNIA; Start 07/02/17 at 13:15 Acetaminophen (Tylenol) 650 mg Q6H PRN PO PAIN SCALE 1 TO 2; Start 07/02/17 at 13:15 Oxycodone/ Acetaminophen (Percocet 5-325 Mg) 1 tab Q6H PRN PO PAIN SCALE 3 TO 5; Start 07/02/17 at 13:15 Oxycodone/ Acetaminophen (Percocet 10-325 Mg) 1 tab Q6H PRN PO PAIN SCALE 6 TO 10; Start 07/02/17 at 13:15 Morphine Sulfate (Morphine Inj) 2 mg Q3H PRN IV PUSH Pain 3-5; if unable to take PO; Start 07/02/17 at 13:15 Morphine Sulfate (Morphine Inj) 4 mg Q3H PRN IV PUSH Pain 6-10;if unable to take PO; Start 07/02/17 at 13:15 Naloxone HCl (Narcan Inj) 0.4 mg UNSCH PRN IV PUSH SEE LABEL COMMENTS; Start at 13:15 Senna/Docusate Sodium (Ly-Colace) 1 tab BID PO Last administered on 07/03/17 08:39; Start 07/02/17 at 21:00 Magnesium Hydroxide (Milk Of Magnesia Liq) 30 ml Q12H PRN PO Mild constipation ; Start 07/02/17 at 13:15 Sennosides (Senokot) 17.2 mg Q12H PRN PO Moderate constipation; Start 07/02/17 at 13:15 Bisacodyl (Dulcolax Supp) 10 mg DAILY PRN RECTAL SEVERE CONSITIPATION; Start at 13:15 Lactulose (Lactulose Liq) 30 ml DAILY PRN PO SEVERE CONSITIPATION; Start at 13:15 Budesonide/ Formoterol Fumarate (Symbicort 160-4.5 Mcg Inh) 2 puff Q12HR INH Last administered on 07/03/17 08:39; Start 07/02/17 at 21:00 Nicotine (Habitrol 14 Mg Patch.24 Hr) 1 patch ONCE ONCE T-DERMAL Last administered on 07/02/17 16:07; Start 07/02/17 at 15:00; Stop 07/02/17 at 15:01; Status DC Nicotine (Habitrol 14 Mg Patch.24 Hr) 1 patch DAILY T-DERMAL Last administered on 07/03/17 08:38; Start 07/03/17 at 09:00 Miscellaneous Information 1 DAILY T-DERMAL Last administered on 07/03/17 08:39 ; Start 07/03/17 at 09:00 A/P Assessment and Plan Impression: COPD exacerbation. Hypoxia. 90% on 3 L nasal cannula. Still quite dyspneic with significant work of breathing. Failed outpatient therapy. Was on 2 antibiotics as an outpatient and finished the course yesterday. He was also on steroids tapering doses. Breathing much better today Off oxygen saturating well Wants to go home We will discharge to home today copd not on home oxygen hepatitis B hx of cholecystitis - still has gallbladder- was medically managed skin cancer- all over- not melanoma Plan: Switch to p.o. steroid Nebulizers every 6 hours- nebulizers at home Off BiPAP BiPAP trial. To reduce work of breathing. Off oxygen Legionella and pneumococcal cultures. Sputum cultures. 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 DVT prophylaxis with Lovenox. GI prophylaxis on pantoprazole. Smoking cessation recommended NicoDerm patch as needed Discharge Planning Wants to go home today we will discharge to home Simon Cameron DO Jul 03, 2017 15:18
[2017-07-03] MEDS ORDERED: Budeson-Formot 160-4.5 Mcg Inh INH (15:24)
[2017-07-03] MEDS ORDERED: PRED10PA2 PO (15:24)
[2017-07-03] MEDS ORDERED: guaiFENesin ER PO (15:24)
[2017-07-03] MEDS ORDERED: DOXY100C PO (15:24)
[2017-07-03] MEDS ORDERED: NICO14DI23 T-DERMAL (15:24)
[2017-07-03] MEDS ORDERED: Albuterol-Ipratropium Neb NEB (15:24)
[2017-07-03] MEDS ORDERED: OXYC1TAB63 PO (15:24)
[2017-07-03] MEDS ORDERED: VENTAER INH (15:24)
--- NOTE | 2017-07-03 15:26 | HHI.DS ---
Discharge Summary Admission Date Jul 01, 2017 at 19:16 Discharge Date: Jul 03, 2017 Admitting Diagnosis acute hypoxic resp failure, exac of COPD (1) COPD exacerbation ICD Code: J44.1 - Chronic obstructive pulmonary disease with (acute) exacerbation Diagnosis: Principal Status: Acute (2) Shortness of breath dyspnea ICD Code: R06.02 - Shortness of breath Diagnosis: Principal Status: Acute (3) Chronic obstructive pulmonary disease ICD Code: J44.9 - Chronic obstructive pulmonary disease Diagnosis: Principal Status: Acute (4) Hyperglycemia ICD Code: R73.9 - Hyperglycemia Diagnosis: Secondary Status: Acute (5) Tobacco abuse ICD Code: Z72.0 - Tobacco abuse Diagnosis: Secondary Status: Acute (6) Chest pain, atypical ICD Code: R07.89 - Atypical chest pain Diagnosis: Secondary Status: Acute (7) Acute respiratory failure with hypoxia ICD Code: J96.01 - Acute respiratory failure with hypoxia Diagnosis: Principal Status: Acute Procedures none Brief History - From Admission History from patient, ER physician communication, and review of medical records. Patient reports that he has been short of breath for the past 1 week. He was coughing quite a lot and had copious whitish sputum production. He denies fever though. He went to his PCP Dr. Mal Strickland office and was prescribed prednisone and 2 different antibiotics. He reports that he finished the course just yesterday or so. He was not getting better and therefore he went to Dr. Strickland's office today. He reports that he was given a shot of antibiotic today at the office today. He was then told to come to the hospital. In the emergency room, patient was quite short of breath. He was placed on oxygen by nasal cannula 3 L. His case was discussed with Dr. Mal Strickland by ER physician. Dr[facility] Patient denies having had any cultures drawn at outpatient clinic. He denies any chest pain. He reports that he had passed out a few times during these coughing episodes. He denies any nausea/vomiting/diarrhea/urinary burning or pain on urination. Denies any blood in his stool or in his urine. Patient denies any cuff muscles pains. Denies any prolonged travels. 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 CBC/BMP: 07/03/17 0538 07/03/17 0538 Significant Findings Laboratory Tests Test 07/01/17 15:25 07/01/17 19:41 07/02/17 05:16 07/03/17 05:38 Monocytes (%) (Auto) 12.8 % (0.0-8.0) Random Glucose 190 MG/DL (74-106) 164 MG/DL (74-106) 143 MG/DL (74-106) Calcium Level 8.4 MG/DL (8.5-10.1) Estimat Glomerular Filtration Rate 59 ML/MIN (>89) 88 ML/MIN (>89) 77 ML/MIN (>89) Troponin I LESS THAN 0.02 NG/ML D-Dimer Quantitative (PE/DVT) 0.58 MG/L FEU (0.00-0.50) White Blood Count 3.5 TH/MM3 (4.0-11.0) 12.8 TH/MM3 (4.0-11.0) Neutrophils (%) (Auto) 83.1 % (16.0-70.0) 91.5 % (16.0-70.0) Lymphocytes # (Auto) 0.5 TH/MM3 (1.0-4.8) 0.7 TH/MM3 (1.0-4.8) Lymphocytes (%) (Auto) 5.7 % (9.0-44.0) Neutrophils # (Auto) 11.7 TH/MM3 (1.8-7.7) Blood Urea Nitrogen 22 MG/DL (7-18) Albumin 2.9 GM/DL (3.4-5.0) Thyroid Stimulating Hormone 3rd Gen 0.207 uIU/ML (0.358-3.740) Imaging Last Impressions Chest X-Ray 07/01/17 1505 Signed Impressions: Service Date/Time: Saturday, July 01, 2017 15:19 - CONCLUSION: No evidence of acute cardiopulmonary disease. Rangel De La Vega MD CT Angiography 07/01/17 0000 Signed Impressions: Service Date/Time: Saturday, July 01, 2017 22:24 - CONCLUSION: 1. Negative for pulmonary embolus. 2. Fairly extensive peribronchial thickening with mild bronchiectasis at the lung bases and distal airway disease. Srinivasan Bustamante MD PE at Discharge GENERAL: Awake alert and oriented 3 talkative and cooperative SKIN: Warm and dry. HEAD: Atraumatic. Normocephalic. EYES: Pupils equal and round. No scleral icterus. No injection or drainage. Extraocular muscles intact ENT: No nasal bleeding or discharge. Mucous membranes pink and moist. Tongue is midline NECK: Trachea midline. No JVD. Supple CARDIOVASCULAR: Regular rate and rhythm. S1-S2 no S3 or S4 no heave or thrill or rub or gallops RESPIRATORY: No accessory muscle use less rhonchi and wheezes bilaterally throughout all lung butler breath sounds equal bilaterally. GASTROINTESTINAL: Abdomen soft, non-tender, nondistended. Hepatic and splenic margins not palpable. MUSCULOSKELETAL: Extremities without clubbing, cyanosis, or edema. No obvious deformities. NEUROLOGICAL: Awake and alert. No obvious cranial nerve deficits. Motor grossly within normal limits. Five out of 5 muscle strength in the arms and legs. Normal speech. PSYCHIATRIC: Appropriate mood and affect; insight and judgment normal. Hospital Course History from patient, ER physician communication, and review of medical records. Patient reports that he has been short of breath for the past 1 week. He was coughing quite a lot and had copious whitish sputum production. He denies fever though. He went to his PCP Dr. Mal Strickland office and was prescribed prednisone and 2 different antibiotics. He reports that he finished the course just yesterday or so. He was not getting better and therefore he went to Dr. Strickland's office today. He reports that he was given a shot of antibiotic today at the office today. He was then told to come to the hospital. In the emergency room, patient was quite short of breath. He was placed on oxygen by nasal cannula 3 L. His case was discussed with Dr. Mal Strickland by ER physician. Dr. Strickland had deferred the admission to [facility]. Patient denies having had any cultures drawn at outpatient clinic. He denies any chest pain. He reports that he had passed out a few times during these coughing episodes. He denies any nausea/vomiting/diarrhea/urinary burning or pain on urination. Denies any blood in his stool or in his urine. Patient denies any cuff muscles pains. Denies any prolonged travels. 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 4-4 patient states he is breathing a little better today States he normally smokes 1-1/2 packs of cigarettes a day for at least 45 years has lately cut down to less than a half a pack But was still smoking coming into the hospital Less short of breath Still actively wheezing Discussed with patient and RN and case management 4-5 patient states that he wants to go home States he is breathing better States he will decrease smoking States he has a nebulizer at home Needs solution and antibiotics and medications Wants to follow[facility] Will discharge him to home today Pt Condition on Discharge: Good Discharge Disposition: Discharge Home Discharge Time: > 30 minutes Discharge Instructions DIET: Follow Instructions for: Heart Healthy Diet Speech Therapy-Diet Recommends: Regular Additional Diet Instructions: Stop smoking Activities you can perform: Regular-No Restrictions Other Activity Instructions: Stop smoking Follow up Referrals: PCP Follow-up - 2-3 Days @ [facility] New Medications: Doxycycline Hyclate (Doxycycline Hyclate) 100 Mg Cap 100 MG PO BID for Infection, #20 CAP 0 Refills Prednisone (48) 10 mg tab Dose Pack (Prednisone (48) 10 mg tab Dose Pack) 10 Mg Dspk 10 MG PO DIRECTED for Inflammation, #1 DSPK 0 Refills TAKE WITH FOOD Nicotine (Eq Nicotine) 14 Mg/24 Hour Dis 1 PATCH T-DERMAL DAILY for TOBACCO, #30 PATCH Oxycodone HCl/Acetaminophen (Oxycodone-Acetaminophen 5-325) 5 Mg-325 Mg Tablet 1 TAB PO Q6H PRN for PAIN SCALE 3 TO 5, #30 TAB [Albuterol-Ipratropium Neb] () 1 AMPULE NEBU 1 AMPULE NEB Q6HR NEB for Shortness of Breath, #180 AMPULE [Budeson-Formot 160-4.5 Mcg Inh] () 60 PUFF AERO 2 PUFF INH Q12HR for Shortness of Breath, #1 INH [guaiFENesin ER] () 600 MG TABCR 600 MG PO BID for Shortness of Breath, #60 TAB Continued Medications: Albuterol 18 GM Inh (Ventolin Hfa 18 GM Inh) 90 Mcg/Act Aer 1 PUFF INH BID PRN for SHORTNESS OF BREATH, #1 INHALER 3 Refills (This prescription has been renewed) Albuterol Neb (Albuterol Neb) 2.5 Mg/0.5 Ml Neb 2.5 MG NEB Q4HR NEB PRN for SOB/WHEEZING, EA Note: The Albuterol Sulfate Inhalation Solution is concentrated and must be diluted. Read complete instructions carefully before using. Fluticasone-Vilanterol Inh (Breo Ellipta Inh) 100-25 Mcg/Act Inh 1 PUFF INH DAILY, #1 INHALER 0 Refills Use daily at the same time. Simon Cameron DO Jul 03, 2017 15:26
[2017-07-03 17:19] LABS: HEMOGLOBIN A1C 5.9 % (4.3-6.0)
== END 2017-07-03 17:27 | disposition home or self-care (01) | DRG 189 ==
LOC: NEPC 14:48 → NEDA 18:33 → INTOOBSV 18:33 → OBSVTOIN 19:16 → HCIS 21:05
PROVIDERS: ADMIT Hospitalist; ATTEND Hospitalist
PROC: 5A09357 Assistance with Respiratory Ventilation, Less than 24 Consecutive Hours, Continuous Positive Airway Pressure (ICD-10-PCS; principal; 2017-07-01)
DX: J96.01 Acute respiratory failure with hypoxia (principal); B19.10 Unspecified viral hepatitis B without hepatic coma; J44.1 Chronic obstructive pulmonary disease with (acute) exacerbation; F17.210 Nicotine dependence, cigarettes, uncomplicated; M19.90 Unspecified osteoarthritis, unspecified site; H91.92 Unspecified hearing loss, left ear; R73.9 Hyperglycemia, unspecified; R07.89 Other chest pain; Z85.828 Personal history of other malignant neoplasm of skin
CPT/HCPCS: 71046; 71275; 80048; 80053; 82550; 82552; 83036; 83735; 83880; 84100; 84439; 84443; 84484; 85025; 85379; 85610; 85730; 93005; 94002; 94150; 94640; 94664; 96374; J1650; J1956; J2920; J2930; Q9967